=== PATIENT | male | born 1960 | race Caucasian/White ===

== ENCOUNTER → 2016-04-27 | Outpatient (CLI) | payer OTHER ==
[~2016-04-27] MED LIST: CEPH500C PO
[2016-04-27 13:04] LABS: HEMATOCRIT 42.1 % (42-52); MEAN CELL VOLUME 95.9 fL (80-100); MEAN CORPUSCULAR HEMOGLOBIN 33.3 pg (25-34); MEAN CORPUSCULAR HGB CONC 34.7 g/dl (32-36); MEAN PLATELET VOLUME 11.3 fL (7.4-10.4); PLATELET COUNT 345 K/uL (130-400); RED BLOOD COUNT 4.39 M/uL (4.7-6.1); WHITE BLOOD COUNT 7.06 K/uL (4.8-10.8)
[2016-04-27 13:47] LABS: ALKALINE PHOSPHATASE 511 U/L (45-117); ALT/SGPT 163 U/L (12-78); AST/SGOT 68 U/L (15-37); BLOOD UREA NITROGEN 14 mg/dl (7-18); BUN/CREATININE RATIO 15.3 (10-20); CALCIUM 9.3 mg/dl (8.5-10.1); CARBON DIOXIDE 24 mmol/L (21-32); CHLORIDE 104 mmol/L (98-107); CREATININE 0.91 mg/dl (0.60-1.40); GLUCOSE 91 mg/dl (70-99); POTASSIUM 4.2 mmol/L (3.5-5.1); SODIUM 137 mmol/L (136-145)
== END | disposition home or self-care (01) ==
LOC: C.LABPVFM 08:33
PROVIDERS: ATTEND Family Medicine
DX: R19.7 Diarrhea, unspecified (principal); L50.9 Urticaria, unspecified

== ENCOUNTER → 2016-05-03 | Outpatient (CLI) | payer OTHER | END | disposition home or self-care (01) | LOC: C.LABPVFM 07:50 | PROVIDERS: ATTEND Family Medicine | DX: R79.89 Other specified abnormal findings of blood chemistry (principal) ==

== ENCOUNTER → 2016-05-03 | Outpatient (CLI) | payer OTHER ==
--- NOTE | 2016-05-03 13:40 | DIAGNOSTIC IMAGING REPORT ---
ULTRASOUND ABDOMEN COMPLETE CLINICAL HISTORY: Abnormal hepatic transaminases. COMPARISON STUDY: No priors. TECHNIQUE: Real-time, grayscale, and color flow sonography of the abdomen was performed. Images are reviewed in the transverse and longitudinal planes. FINDINGS: Liver: The liver is mildly enlarged measuring 19 cm in length. Liver appears normal in echotexture. There is moderate intrahepatic biliary ductal dilatation. The main portal vein is patent. Gallbladder: The gallbladder is distended measuring up to 12 cm in length. Biliary sludge is noted. No shadowing gallstones are identified. There is no gallbladder wall thickening or pericholecystic fluid. A sonographic Wilkinson's sign is reportedly absent. The common bile duct is dilated measuring up to 1.6 cm in diameter. Pancreas: Visualized portions of the pancreatic head and body are normal in appearance. The splenic vein is patent. Spleen: The spleen is normal in size and echotexture, measuring 10.1 cm in length. Kidneys: The kidneys are normal in size and echotexture. There is no hydronephrosis. The right kidney measures 12.4 cm in length and the left kidney measures 12.4 cm in length. No shadowing calculi are identified. A 2.1 cm cyst is noted in the right kidney. Abdominal vasculature: Visualized portions of the abdominal aorta and IVC are normal in appearance. Ascites: None. IMPRESSION: 1. There is intra and extrahepatic biliary ductal dilatation. 2. The gallbladder is distended and filled with sludge. No shadowing gallstones are identified and there is no sonographic evidence of acute cholecystitis. 3. These findings raise concern for biliary obstruction. Consider contrast-enhanced abdominal CT for further assessment. Electronically signed by: Isauro Correa M.D. 05/03/2016 1:39 PM Dictated Date/Time: 05/03/2016 1:35 PM
== END | disposition home or self-care (01) ==
LOC: C.ULTR 11:40
PROVIDERS: ATTEND Family Medicine
DX: R79.89 Other specified abnormal findings of blood chemistry (principal)

== ENCOUNTER → 2016-05-08 | Outpatient (CLI) | payer OTHER ==
[~2016-05-08] MED LIST changes: +OPTIRAY 320 IV PRN
--- NOTE | 2016-05-08 08:49 | DIAGNOSTIC IMAGING REPORT ---
CT OF THE ABDOMEN WITH IV AND ORAL CONTRAST CT DOSE: 204.60 mGy.cm CLINICAL HISTORY: Abnormal liver function tests. TECHNIQUE: Axial images of the abdomen were obtained following intravenous injection of 118 cc of Optiray 320 IV. Oral contrast was administered. COMPARISON STUDY: Abdominal ultrasound May 03, 2016. FINDINGS: Lung bases are clear. There is moderate intra and extrahepatic biliary ductal dilatation. The common bile duct measures 1.5 cm in caliber. There is abrupt cut off of the distal common bile duct at the level of the ampulla. There is no pancreatic ductal dilatation. No mass is identified although small masses may be occult by CT. An 8 mm hypodense lateral segment hepatic lesion likely reflects a cyst. A 6 cm hypodense right hepatic lobe lesion shown on image 233 of 281 likely reflects a cyst. There are a few additional smaller subcentimeter hepatic lesions. The spleen, adrenal glands and left kidney are normal. There is a 2.2 cm right renal cyst. Adjacent right renal lesion likely reflects a subcentimeter cyst. There is no abdominal lymphadenopathy. The caliber and wall thickness of visualized small and large bowel are normal. There is no peripancreatic infiltration. Note is made of layering material within the gallbladder which likely reflects sludge. There are also tiny hyperdensities within the inferior aspect of the gallbladder that could reflect tiny calculi. There is no pericholecystic infiltration. IMPRESSION: 1. Moderate intra and extrahepatic biliary ductal dilatation with abrupt cut off of the distal common bile duct at the level of the ampulla. No mass or radiopaque stone identified although small ampullary masses may be occult by CT. No pancreatic ductal dilatation. GI consultation is recommended. Further evaluation with MRCP or ERCP is suggested. 2. Several subcentimeter hypodense hepatic lesions. These are too small to characterize but likely reflect cysts. 3. Sludge within the gallbladder with suspected tiny gallstones. No pericholecystic infiltration. Electronically signed by: Madhu Cheng M.D. 05/08/2016 8:48 AM Dictated Date/Time: 05/08/2016 8:32 AM
[2016-05-08 09:52] LABS: ALB/GLOB RATIO 0.9 (0.9-2); ALKALINE PHOSPHATASE 367 U/L (45-117); ALT/SGPT 190 U/L (12-78); AST/SGOT 66 U/L (15-37); BLOOD UREA NITROGEN 15 mg/dl (7-18); CALCIUM 8.6 mg/dl (8.5-10.1); CARBON DIOXIDE 25 mmol/L (21-32); CHLORIDE 102 mmol/L (98-107); CREATININE 0.86 mg/dl (0.60-1.40); GLUCOSE 85 mg/dl (70-99); POTASSIUM 3.9 mmol/L (3.5-5.1); SODIUM 136 mmol/L (136-145)
== END | disposition home or self-care (01) ==
LOC: C.CTS 06:03
PROVIDERS: ATTEND Family Medicine
DX: R79.89 Other specified abnormal findings of blood chemistry (principal); K83.8 Other specified diseases of biliary tract; K76.89 Other specified diseases of liver; K82.9 Disease of gallbladder, unspecified

== ENCOUNTER 2016-05-10 10:43 | Day surgery (SDC) | payer OTHER ==
[~2016-05-10] VITALS: Ht 177.8 cm; Wt 75.5 kg
[~2016-05-10 10:43] MED LIST changes: +CIPROFLOXACIN / D5W 400 MG IV SCH; -OPTIRAY 320 IV PRN
[2016-05-10 11:17] VITALS: BP 114/71; PULSE 74; TEMP 37; O2SAT 97; Ht 177.8 cm; Wt 75.5 kg
[2016-05-10] MEDS ORDERED: LACTATED RINGER'S 1000ML 1,000 ML IV ONE (11:42)
[2016-05-10] MEDS ORDERED: INDOMETHACIN 50 MG SUPP PR ONE ×2 (11:45→12:54)
[2016-05-10 12:24] LABS: INR 0.9 (0.9-1.1); PROTHROMBIN TIME (PATIENT) 10.1 SECONDS (9.0-12.0)
[2016-05-10 12:36] LABS: BUN/CREATININE RATIO 18.2 (10-20); CALCIUM 8.8 mg/dl (8.5-10.1); CREATININE 0.66 mg/dl (0.60-1.40); POTASSIUM 3.9 mmol/L (3.5-5.1)
[2016-05-10 12:41] LABS: ALB/GLOB RATIO 0.8 (0.9-2)
--- NOTE | 2016-05-10 13:07 | Endo History and Physical ---
History & Physical Date of Service: May 10, 2016. Chief Complaint: Jaundice Referring Physician: Dr. Hipolito Peterson History of Present Illness Patient with 1 month of itching, 10 pound weight loss, nausea and recent jaundice. Imaging with a dilated common bile duct (15 mm) and labs with elevated LAEs + a bilirubin > 10. Past Surgical History Hx Cardiac Surgery: No Hx Abdominal Surgery: No Hx Post-Op Nausea and Vomiting: No Hx Cancer Surgery: Yes (melonoma with lymph node removal ) Hx Thoracic Surgery: No Hx Orthopedic: No Hx Urinary Tract Surgery: No Social History Smoking Status: Current Every Day Smoker Hx Substance Use: No Hx Alcohol Use: Yes (three beers a day) Allergies Coded Allergies: No Known Allergies (Unverified , 03/11/08) Current Medications Reported Home Medications Medications Dose Route/Sig Max Daily Dose Days Date Category Keflex (Cephalexin Monohydrate) 500 Mg Cap 500 Mg PO QID 03/11/08 Rx Vital Signs Weight (Kilograms): 75.5 Height (Feet): 5 Height (Inches): 10 Date Time Temp Pulse Resp B/P Pulse Ox O2 Delivery O2 Flow Rate FiO2 05/10/16 11:17 37.0 74 18 114/71 97 Room Air Physical Exam General Appearance: no apparent distress Respiratory/Chest: Auscultation: breath sounds normal, no wheezing Cardiovascular: Heart Auscultation: RRR, no murmurs Abdomen: Inspection & Palpation: soft Assessment and Plan patient with obstructive jaundice, history and 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 We will proceed with EUS / ERCP this afternoon. Risks are bleeding, infection, perforation, pain, pancreatitis, failed cannulation and insufficient cellularity. Plan EUS ERCP
[2016-05-10] MEDS ORDERED: MoRPHine SULFATE PF 1 MG/ML 10 ML AMP/VIAL ONE (14:16)
[2016-05-10] MEDS ORDERED: MIDAZOLAM HCL 1 MG/ML 2ML VIAL ONE (14:16)
[2016-05-10] MEDS ORDERED: FENTANYL CITRATE INJ 50 MCG/1 ML 2 ML VIAL ONE (14:17)
[2016-05-10] MEDS ORDERED: ROCURONIUM BROMIDE 10 MG/ML 5 ML VIAL ONE (14:40)
[2016-05-10] MEDS ORDERED: ONDANSETRON INJ 2 MG/ML 2 ML VIAL ONE (14:40)
[2016-05-10] MEDS ORDERED: DEXAMETHASONE SOD INJ 4 MG/ML VIAL ONE (14:40)
[2016-05-10] MEDS ORDERED: PROPOFOL IV EMULSION 10 MG/ML 20 ML VIAL IV ONE (14:45)
[2016-05-10] MEDS ORDERED: LIDOCAINE HCL 2% 2 ML VIAL (20MG/ML) ONE (14:45)
[2016-05-10] MEDS ORDERED: EpHEDrine SULFATE INJ 50 MG/ML AMP ONE (14:54)
[2016-05-10] MEDS ORDERED: PHENYLEPHRINE 100MCG/ML 5ML SYR ONE (14:54)
[2016-05-10] MEDS ORDERED: HYDROmorphone INJ 2 MG/ML SYR/VIAL IV PRN (15:00)
[2016-05-10] MEDS ORDERED: FENTANYL CITRATE INJ 50 MCG/1 ML 2 ML VIAL IV PRN (15:00)
[2016-05-10] MEDS ORDERED: LABETALOL HCL IV 5 MG/ML 20ML IV PRN (15:00)
[2016-05-10] MEDS ORDERED: PHENYLEPHRINE 100MCG/ML 5ML SYR IV PRN (15:00)
[2016-05-10] MEDS ORDERED: ATROPINE SULFATE 0.1 MG/ML 5ML SYR IV PRN (15:00)
[2016-05-10] MEDS ORDERED: ONDANSETRON INJ 2 MG/ML 2 ML VIAL IV PRN ×2 (15:00→15:45)
[2016-05-10] MEDS ORDERED: FLUMAZENIL 0.1 MG/1 ML 10 ML VIAL IV PRN (15:00)
[2016-05-10] MEDS ORDERED: MEPERIDINE HCL 25 MG/ML CARP IV PRN (15:00)
[2016-05-10] MEDS ORDERED: EpHEDrine SULFATE INJ 50 MG/ML AMP IV PRN (15:00)
[2016-05-10] MEDS ORDERED: NALOXONE HCL 0.4 MG/1 ML VIAL/CARP IV PRN (15:00)
[2016-05-10] MEDS ORDERED: NEOSTIGMINE METHYLSULFATE 5 MG/5 ML SYR ONE (15:10)
[2016-05-10] MEDS ORDERED: GLYCOPYRROLATE INJ 0.2 MG/ML VIAL ONE (15:10)
--- NOTE | 2016-05-10 15:41 | [facility] Post Operative Brief Note ---
Immediate Operative Summary Operative Date May 10, 2016. Pre-Operative Diagnosis Jaundice Post-Operative Diagnosis Ampullary Mass Procedure(s) Performed Upper Endoscopic Ultrasonography, Endoscopic Retrograde Cholangiopancreatogram Surgeon Dr. Elias Patient Case Coordinator Surgeon(s) NONE Estimated Blood Loss 0ml Findings DILATION OF THE COMMON BILE DUCT PERIAMPULLARY MASS Specimens All specimens handled by Endoscopy Anesthesia General Complication(s) None Disposition Recovery Room / PACU
--- NOTE | 2016-05-10 15:44 | Discharge Instructions ---
Endoscopy Patient Instructions Date / Procedure(s) Performed May 10, 2016. ERCP, Other (endoscopic ultrasound) Allergy Information Coded Allergies: No Known Allergies (Unverified , 03/11/08) Discharge Date / Findings May 10, 2016. 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 - Do not drink alcohol the day of the procedure. - Do not drive a car or operate machinery until the day after the procedure. - Do not make any important decisions or sign important papers in 24 hours after the procedure. Following Day: - Return to full activity which may include returning to work/school. Diet Clear liquid diet today Regular diet on 05/11/16 Treatment For Common After Affects For mild abdominal pain, bloating, or excessive gas: - Rest - Eat lightly - Lie on right side Follow-Up Information Await pathology results Labs in [address] ordered for next week Surgical oncology referral Anesthesia Information What You Should Know You have had a procedure that required some medicine to reduce anxiety and discomfort. This treatment is called moderate sedation. After receiving the treatment, you may be sleepy, but you will be able to breathe on your own. The effects of the treatment may last for several hours. Follow these instructions along with Activity/Diet recommendations noted above: * Do NOT do anything where dizziness or clumsiness would be dangerous. * Rest quietly at home today, then you can be up and about tomorrow. * Have a responsible person stay with you the rest of today. * You may have had an I.V. today. If so, you may take the dressing off later today. Recommendations Call your doctor if: * Trouble breathing * Continuous vomiting for more than 24 hours * Temperature above 101 degrees * Severe abdominal pain or bloating * Pain not relieved by pain medicine ordered * There is increased drainage or redness from any incision * A large amount of rectal bleeding greater than 2-3 tablespoons. (If you had a polyp/s removed or have hemorrhoids, a small amount of blood - from the rectum is to be expected.) * You have any unanswered questions or concerns. IN THE EVENT OF A SERIOUS EMERGENCY, GO TO THE NEAREST EMERGENCY ROOM Your discharge instructions were prepared by provider Tonie Elias. Patient Instructions Signature Page Selvin Pineda Patient (or Guardian) Signature/Date: I have read and understand the instructions given to me by my caregivers. Caregiver/RN/Doctor Signature/Date: The above-named patient and/or guardian has received patient instructions on this date. + Original Patient Signature Page (only) stays with chart. Please make copy for patient.
--- NOTE | 2016-05-10 15:52 | DIAGNOSTIC IMAGING REPORT ---
ERCP BILIARY DUCTAL CLINICAL HISTORY: Biliary ductal dilatation. Possible ampullary mass. COMPARISON STUDY: CT scan dated 05/08/2016 FLUOROSCOPY TIME: 44 seconds. 8 Fluoroscopic spot images are provided for interpretation. FINDINGS: The common bile duct was cannulated and contrast was instilled. There is intra and extra hepatic biliary ductal dilatation. No filling defects are visualized. A biliary enteric stent was placed. IMPRESSION: Fluoroscopic spot images during an ERCP and placement of a biliary enteric stent. Electronically signed by: Armando Perkins M.D. 05/10/2016 3:51 PM Dictated Date/Time: 05/10/2016 3:50 PM
--- NOTE | 2016-05-10 15:53 | GI REPORT ---
Procedure Date: 05/10/2016 2:16 PM Procedure: ERCP Indications: Biliary dilation on Computed Tomogram Scan, Jaundice Medicines: General Anesthesia, Indocin 100 mg SD Complications: No immediate complications. Estimated blood loss: Minimal. Estimated Blood Loss: Estimated blood loss was minimal. Procedure: Pre-Anesthesia Assessment: - Prior to the procedure, a History and Physical was performed, and patient medications, allergies and sensitivities were reviewed. The patient's tolerance of previous anesthesia was reviewed. - The risks and benefits of the procedure and the sedation options and risks were discussed with the patient. All questions were answered and informed consent was obtained. - Patient identification and proposed procedure were verified prior to the procedure by the physician, the nurse and the president college or university. The procedure was verified in the procedure room. - Pre-procedure physical examination revealed no contraindications to sedation. - ASA Grade Assessment: III - A patient with severe systemic disease. - After reviewing the risks and benefits, the patient was deemed in satisfactory condition to undergo the procedure. - The anesthesia plan was to use general anesthesia. - Immediately prior to administration of medications, the patient was re-assessed for adequacy to receive sedatives. - The heart rate, respiratory rate, oxygen saturations, blood pressure, adequacy of pulmonary ventilation, and response to care were monitored throughout the procedure. - The physical status of the patient was re-assessed after the procedure. After obtaining informed consent, the scope was passed under direct vision. Throughout the procedure, the patient's blood pressure, pulse, and oxygen saturations were monitored continuously. The Scope was introduced through the mouth, and advanced to the duodenum and used to cannulate the bile duct. The ERCP was accomplished without difficulty. The patient tolerated the procedure well. Findings: The regional extension service specialist film was normal. The esophagus was successfully intubated under direct vision without detailed examination of the pharynx, larynx, and associated structures, and upper GI tract. The upper GI tract was grossly normal. A medium-sized fungating mass measuring twenty-one mm in diameter was found at the major papilla. The bile duct was deeply cannulated with the short-nosed traction sphincterotome (Omni 35) and 0.035 in Acrobat guidewire during the first cannulation attempt. Contrast was injected. I personally interpreted the bile duct images. Contrast extended to the hepatic ducts. The main bile duct was diffusely dilated, with a mass causing an obstruction. The largest diameter was 11mm. The lower third of the main bile duct contained a single segmental stenosis 10 mm in length within the intraduodenal segment consistent with an ampullary mass. A short biliary sphincterotomy was made with a monofilament short-tip traction sphincterotome using ERBE electrocautery. There was no post-sphincterotomy bleeding. One 7 Fr by 7 cm biliary stent with a full external pigtail and a full internal pigtail was placed 7 cm into the common bile duct. Bile flowed through the stent. The stent was in good position. One 8.5 Fr by 7 cm biliary stent with a single external flap and a single internal flap was placed 7 cm into the common bile duct. Bile flowed through the stent. The stent was in good position. The endoscope was withdrawn from the patient. Impression: - The major papilla appeared to have a mass. - The entire main bile duct was dilated, with a mass causing an obstruction. - A sphincterotomy was performed. - 2 biliary stents were placed. Recommendation: - Avoid aspirin and nonsteroidal anti-inflammatory medicines for 1 week. - Clear liquid diet today. - Cipro (ciprofloxacin) 500 mg PO BID for 5 days. Tonie Elias D.O. Tonie Elias, 05/10/2016 3:52:49 PM This report has been signed electronically. Note Initiated On: 05/10/2016 2:16 PM I attest to the content of the Intraoperative Record and orders documented therein, exceptions below
--- NOTE | 2016-05-10 15:59 | Anesthesiology Progress Note ---
Anesthesia Post Op Note Date & Time May 10, 2016 at 15:59 Vital Signs Pain Intensity: 0 Vital Signs Past 12 Hours Date Time Temp Pulse Resp B/P Pulse Ox O2 Delivery O2 Flow Rate FiO2 05/10/16 15:50 55 16 100 05/10/16 15:50 56 16 05/10/16 15:48 101/60 05/10/16 15:45 56 15 100 05/10/16 15:45 36.5 60 16 98/63 100 Mask 10 05/10/16 15:45 57 15 05/10/16 11:17 37.0 74 18 114/71 97 Room Air Notes Mental Status: alert / awake / arousable, participated in evaluation Pt Amnestic to Procedure: Yes Nausea / Vomiting: adequately controlled Pain: adequately controlled Airway Patency, RR, SpO2: stable & adequate BP & HR: stable & adequate Hydration State: stable & adequate Anesthetic Complications: no major complications apparent
[2016-05-10 16:30] VITALS: BP 114/68; PULSE 63; TEMP 36.3; O2SAT 97
[2016-05-10 17:07] VITALS: BP 117/72; PULSE 70; TEMP 36.4; O2SAT 99
[2016-05-11] MEDS ORDERED: CIPROFLOXACIN 400MG / 200ML D5W IV ONE (06:00)
== END 2016-05-10 17:24 | disposition home or self-care (01) ==
LOC: C.ACU 10:43
PROVIDERS: ATTEND Internal Medicine Gastroenterology
DX: C17.0 Malignant neoplasm of duodenum (principal); R17 Unspecified jaundice; R63.4 Abnormal weight loss; F17.210 Nicotine dependence, cigarettes, uncomplicated; R11.0 Nausea

== ENCOUNTER → 2016-06-10 | Outpatient (CLI) | payer OTHER ==
[~2016-06-10] MED LIST changes: -CIPROFLOXACIN / D5W 400 MG IV SCH
[2016-06-10 12:32] LABS: HEMATOCRIT 32.9 % (42-52); MEAN CELL VOLUME 92.4 fL (80-100); MEAN CORPUSCULAR HEMOGLOBIN 31.2 pg (25-34); MEAN CORPUSCULAR HGB CONC 33.7 g/dl (32-36); MEAN PLATELET VOLUME 9.3 fL (7.4-10.4); PLATELET COUNT 575 K/uL (130-400); RED BLOOD COUNT 3.56 M/uL (4.7-6.1); WHITE BLOOD COUNT 10.57 K/uL (4.8-10.8)
[2016-06-10 12:51] LABS: BLOOD UREA NITROGEN 7 mg/dl (7-18); BUN/CREATININE RATIO 9.2 (10-20); CALCIUM 8.4 mg/dl (8.5-10.1); CARBON DIOXIDE 27 mmol/L (21-32); CHLORIDE 103 mmol/L (98-107); CREATININE 0.78 mg/dl (0.60-1.40); GLUCOSE 127 mg/dl (70-99); POTASSIUM 3.7 mmol/L (3.5-5.1); SODIUM 139 mmol/L (136-145)
== END | disposition home or self-care (01) ==
LOC: C.LABPVFM 10:21
PROVIDERS: ATTEND Nurse Practitioner
DX: I82.90 Acute embolism and thrombosis of unspecified vein (principal)

== ENCOUNTER → 2016-06-12 | Outpatient (CLI) | payer OTHER | END | disposition home or self-care (01) | LOC: C.LABPVFM 12:24 | PROVIDERS: ATTEND Family Medicine | DX: R19.7 Diarrhea, unspecified (principal) ==

== ENCOUNTER 2019-04-06 17:00 | Inpatient (IN) ==
[2019-04-06] MEDS ORDERED: ONDANSETRON INJ 2 MG/ML 2 ML VIAL IV STA (17:05)
[2019-04-06] MEDS ORDERED: SODIUM CHLORIDE 0.9% 1000ML 1,000 ML IV SCH (17:15)
[2019-04-06] MEDS: HYDROmorphone INJ 0.5 MG/0.5 ML SYR IV PRN ×7 (17:24→21:21)
[2019-04-06] MEDS ORDERED: OPTIRAY 320 125ml IV PRN (17:25)
[2019-04-06 17:29] LABS: iSTAT Creatinine 0.9 mg/dl (0.6-1.3); iSTAT Hemoglobin 14.6 g/dl (14.0-18.0); iSTAT Ionized Calcium 1.18 mmol/l (1.12-1.32)
[2019-04-06 17:31] LABS: Hematocrit (blood only) 42.4 % (42-52); Hemoglobin 14.2 g/dL (14.0-18.0); Mean Corpuscular Hemoglobin 33.4 pg (25-34); Mean Corpuscular Hgb Conc 33.5 g/dL (32-36); Mean Corpuscular Volume 99.8 fL (80-100); Mean Platelet Volume 10.5 fL (7.4-10.4); Platelet Count 336 K/uL (130-400); RDW Coefficient of Variation 13.4 % (11.5-14.5); RDW Standard Deviation 48.7 fL (36.4-46.3); Red Blood Count 4.25 M/uL (4.7-6.1); White Blood Count 8.67 K/uL (4.8-10.8)
--- NOTE | 2019-04-06 17:42 | CT Scan Report ---
CT angio chest dissec wo/w con CT DOSE: 876.22 mGy.cm HISTORY: Pain pain TECHNIQUE: Multiaxial CT images of the chest, abdomen, and pelvis were performed both before and afte r the intravenous administration of contrast to evaluate the aorta. Maximal intensity projection imag es were also obtained. A dose lowering technique was utilized adhering to the principles of ALARA. COMPARISON STUDY: 09/12/2017 FINDINGS: Normal thoracic aorta. Lungs are considered clear. No evidence for aneurysm or dissection. Mild emphysematous change. IMPRESSION: Mild emphysematous change. Normal thoracic aorta. The lungs are clear. ACT 112: Negative or not required by law. The above report was generated using voice recognition software. It may contain grammatical, syntax or spelling errors. Electronically signed by: Hipolito Chen M.D. 04/06/2019 5:41 PM
[2019-04-06 17:47] LABS: Partial Thromboplastin Ratio 1.1; Partial Thromboplastin Time 28.5 Seconds (21.0-31.0); Prothrombin Time 10.4 Seconds (9.0-12.0)
[2019-04-06 17:48] LABS: Alanine Aminotransferase 28 U/L (12-78); Albumin Level 3.8 gm/dl (3.4-5.0); Aspartate Aminotransferase 16 U/L (15-37); BUN Creatinine Ratio 12.1 (10-20); Blood Urea Nitrogen 13 mg/dl (7-18); Calcium 8.8 mg/dl (8.5-10.1); Carbon Dioxide 26 mmol/L (21-32); Chloride 105 mmol/L (98-107); Creatinine Clr Calc Pharmacy 78.4 ml/min; Est GFR (African American) 89.2; Glucose 128 mg/dl (70-99); Lipase 91 U/L (73-393); Potassium 3.8 mmol/L (3.5-5.1); Sodium 137 mmol/L (136-145)
[2019-04-06 17:53] LABS: Albumin Globulin Ratio 1.2 (0.9-2); Alkaline Phosphatase 90 U/L (45-117); Bilirubin,Total 0.4 mg/dl (0.2-1); Globulin 3.2 gm/dl (2.5-4.0); Troponin I < 0.015 ng/ml (0-0.045)
--- NOTE | 2019-04-06 17:53 | CT Scan Report ---
CT abd pelvis IV con only CT DOSE: HISTORY: Trauma. Pain. lower pain TECHNIQUE: Multiaxial CT images of the abdomen and pelvis were performed following the use of intrave nous contrast. A dose lowering technique was utilized adhering to the principles of ALARA. COMPARISON STUDY: 09/09/2017 FINDINGS: Lung bases are clear. The subcapsular collection previously described has resolved. Liver i s uniform throughout. Trace amount of ascites within the paracolic gutter regions. Kidneys negative for hydronephrosis. Stable right renal cyst. Bowel pattern suggests wall thickening of the bulk of the small bowel. This is highly suggestive of diffuse enteritis. 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 IMPRESSION: 1. Mild abdominal and pelvic ascites. 2. 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 3. Interval resolution of the subcapsular collection previously described. 4. Diffuse small bowel enteritis. ACT 112: Negative or not required by law. The above report was generated using voice recognition software. It may contain grammatical, syntax or spelling errors. Electronically signed by: Hipolito Chen M.D. 04/06/2019 5:51 PM
[2019-04-06] MEDS ORDERED: SODIUM CHLORIDE 0.9% 1000ML 1,000 ML IV ONE (18:36)
[2019-04-06 18:47] LABS: Basophils # (auto) 0.01 K/uL (0-0.2); Basophils % (auto) 0.1 %; Eosinophils # (auto) 0.02 K/uL (0-0.5); Eosinophils % (auto) 0.2 %; Immature Granulocytes # (auto) 0.01 K/uL (0.00-0.02); Immature Granulocytes % (auto) 0.1 %; Lymphocytes # (auto) 1.03 K/uL (1.2-3.4); Lymphocytes % (auto) 11.9 %; Monocytes # (auto) 0.58 K/uL (0.11-0.59); Monocytes % (auto) 6.7 %; Neutrophils # (auto) 7.02 K/uL (1.4-6.5)
[2019-04-06] MEDS ORDERED: KETOROLAC TROMETHAMINE 15 MG/ML VIAL IV ONE (19:15)
[2019-04-06 20:24] LABS: HCO3 VBG 23 mmol/L; PCO2 VBG 48 mmHg (38-50); PO2 VBG 28 mmHg; pH VBG 7.29 (7.36-7.41)
[2019-04-06 20:48] LABS: Oxygen Saturation VBG < 60.0 %
--- NOTE | 2019-04-06 22:14 | Emergency Department Note ---
Entered by Yuly Bach acting as a scribe for Luis Manuel Klein DO History of Present Illness General Chief complaint: Abdominal Pain Stated complaint: AB PAIN Source: patient and EMS Limitations: no limitations History of Present Illness Onset (ago): hour(s) (1.5) Location: abdomen Radiation: other (shoulders) Severity: severe Pain Consistency: + constant Associated symptoms: no chest pain and no nausea/vomiting Treatments prior to arrival: other (normal saline solution, fentanyl) The patient is a 58 year old male who presents to the Emergency Room with complaints of severe, constant abdominal pain that began at 15:30, about 1.5 hours ago. He notes that there is "ripping" pain radiating to his shoulders. The patient reports that the pain began is his lower abdomen, and it's now in his entire abdomen and shoulders. He denies any chest pain and vomiting. The patient denies any history of similar symptoms. He notes that he smoke cigarettes daily, and he reports that he has about 1 beer a week. The patient notes a history of pancreatic cancer. Per EMS, the patient was given fentanyl and 500 cc of normal saline solution. Home Medications Home Medications Medication Instructions Recorded Confirmed Type Multivitamin Powder Pkg 1 packet PO DAILY 04/06/19 04/06/19 History acetaminophen [Tylenol] 650 mg PO QID PRN 04/06/19 04/06/19 History ibuprofen [Advil] 400 mg PO Q6H PRN 04/06/19 04/06/19 History Allergies Allergy/AdvReac Type Severity Reaction Status Date / Time No Known Allergies Allergy Mild Unverified 04/06/19 21:07 Past Med/Surg History Medical History Empyema Melanoma Pancreatic cancer Pleural effusion on right Social History Preferred Language: Bahamian Communication Ability: Effective Feels Safe at Home: Yes Smoking Status: Current every day smoker Review of Systems See HPI for pertinent positives & negatives. and A total of 10 systems reviewed and were otherwise negative Physical Exam Vital Signs Vital Signs - 24 hr 04/06/19 17:16 04/06/19 18:15 04/06/19 19:49 Temperature 36.6 C Temperature Source Oral Pulse Rate 76 Pulse Rate [Right Finger] 83 87 Respiratory Rate 24 20 20 Respiratory Effort / Characteristics Non-Labored Spontaneous Non-Labored Spontaneous Non-Labored Spontaneous Respiratory Depth Normal Normal Normal Respiratory Pattern Regular Regular Regular Blood Pressure 113/82 Blood Pressure [Right Arm] 94/59 L 114/86 Blood Pressure Mean 92 Blood Pressure Mean [Right Arm] 70 95 Blood Pressure Position Lying Blood Pressure Position [Right Arm] Sitting Lying Pulse Oximetry 97 96 96 Oxygen Delivery Method Room Air Room Air Room Air Sepsis Recent Fever Within 48 Hours No Sepsis New/Unexplained Change in Mental Status No Sepsis Action Taken by Nursing No Action Required 04/06/19 21:00 Temperature Temperature Source Pulse Rate Pulse Rate [Right Finger] 81 Respiratory Rate 20 Respiratory Effort / Characteristics Non-Labored Spontaneous Respiratory Depth Normal Respiratory Pattern Regular Blood Pressure Blood Pressure [Right Arm] 118/75 Blood Pressure Mean Blood Pressure Mean [Right Arm] 89 Blood Pressure Position Blood Pressure Position [Right Arm] Lying Pulse Oximetry 100 Oxygen Delivery Method Room Air Sepsis Recent Fever Within 48 Hours Sepsis New/Unexplained Change in Mental Status Sepsis Action Taken by Nursing GENERAL: Patient is awake and alert. The patient is very uncomfortable appearing, and he appears to be in severe pain. EYES: The conjunctivae are clear. The pupils are round and reactive. EARS, NOSE, MOUTH AND THROAT: The nose is without any evidence of any deformity. Mucous membranes are moist.Tongue is midline NECK: The neck is nontender and supple. RESPIRATORY: Normal respiratory effort is noted. There is no evidence of wheezing rhonchi or rales to auscultation. CARDIOVASCULAR: Regular rate and rhythm noted. There no murmurs rubs or gallops normal S1 normal S2 GASTROINTESTINAL: Rigid with lower abdominal tenderness to palpation, diffuse guarding. BACK: No midline tenderness or or step-off noted range of motion in flexion extension as well as rotation no signs of muscle spasm noted. MUSCULOSKELETAL/EXTREMITIES: There is no evidence of gross deformity. Full range of motion is noted in the hips and shoulders. SKIN: There is no obvious evidence of any rash. There are no petechiae, pallor or cyanosis noted. NEUROLOGIC: Patient is awake alert and oriented x3. Course Course 1700: The patient was evaluated in room A03. A complete history and physical exam was performed. 1916: I reassessed the patient, and he complained of continued pain. 2041: I reevaluated the patient. 2114: I reassessed the patient, and he was resting. 2219: I spoke with Dr. Lemos, [facility] hospitalist, about the patient's case. He will further evaluate the patient. Administered Medications Hydromorphone HCl (Dilaudid) 0.5 mg IV Q15M PRN PRN Reason: Pain Stop: 04/20/19 17:04 Last Admin: 04/06/19 21:21 Dose: 0.5 mg Documented by: [id number] Admin: 04/06/19 20:34 Dose: 0.5 mg Documented by: [id number] Admin: 04/06/19 20:08 Dose: 0.5 mg Documented by: [id number] Admin: 04/06/19 19:33 Dose: 0.5 mg Documented by: [id number] Admin: 04/06/19 18:29 Dose: 0.5 mg Documented by: [id number] Admin: 04/06/19 17:38 Dose: 0.5 mg Documented by: [id number] Admin: 04/06/19 17:24 Dose: 0.5 mg Documented by: [id number] Ioversol (Optiray 320 125ml) 119 ml IV ONCE PRN PRN Reason: Interaction Checking Stop: 04/10/19 17:24 Last Admin: 04/06/19 17:26 Dose: 119 ml Documented by: [id number] Morphine Sulfate (Morphine Sulfate) 4 mg IV Q15M DOROTHY Stop: 04/20/19 20:44 Last Admin: 04/06/19 22:20 Dose: 4 mg Documented by: [id number] Discontinued Medications Diphenhydramine HCl (Benadryl) 50 mg IV NOW STA Stop: 04/06/19 22:23 Last Admin: 04/06/19 22:36 Dose: Not Given Documented by: [id number] Diphenhydramine HCl (Benadryl) Confirm Administered Dose 50 mg .ROUTE .STK-MED ONE Stop: 04/06/19 22:26 Last Admin: 04/06/19 22:26 Dose: 50 mg Documented by: [id number] Sodium Chloride (Nss 1000ml) 1,000 mls @ 999 mls/hr IV .Q1H1M DOROTHY Stop: 04/06/19 18:15 Last Infusion: 04/06/19 18:26 Dose: 0 mls/hr Documented by: [id number] Admin: 04/06/19 17:24 Dose: 999 mls/hr Documented by: [id number] Sodium Chloride (Nss 1000ml) 1,000 mls @ 999 mls/hr IV .Q1H1M ONE Stop: 04/06/19 19:36 Last Infusion: 04/06/19 19:41 Dose: 0 mls/hr Documented by: [id number] Admin: 04/06/19 18:47 Dose: 999 mls/hr Documented by: [id number] Ketorolac Tromethamine (Toradol) 10 mg IV NOW ONE Stop: 04/06/19 19:16 Last Admin: 04/06/19 19:33 Dose: 10 mg Documented by: [id number] Ondansetron HCl (Zofran) 4 mg IV NOW STA Stop: 04/06/19 17:06 Last Admin: 04/06/19 17:24 Dose: 4 mg Documented by: [id number] Medical Decision Making Differential Diagnosis Etiologies such as biliary colic, cholecystitis, hepatitis, pancreatitis, cardiac disease, pancreatitis, gastritis, peptic ulcer disease, appendicitis, cystitis, diverticulitis, mesenteric ischemia, inflammatory bowel disease, ileus, bowel obstruction, testicular torsion, aortic pathology, shingles, as well as others were considered. Medical Records Attestation: I reviewed the patient's medical records. Home Medications Current Medication List: was personally reviewed by me Laboratory Data Attestation: I reviewed the patient's lab results. Result diagrams: 04/06/19 17:12 04/06/19 17:12 Lab Results 04/06/19 04/06/19 04/06/19 Range/Units 17:12 17:12 17:12 WBC 8.67 (4.8-10.8) K/uL RBC 4.25 L (4.7-6.1) M/uL Hgb 14.2 (14.0-18.0) g/dL POC Hgb (14.0-18.0) g/dl Hct 42.4 (42-52) % POC Hct (42-52) % MCV 99.8 (80-100) fL MCH 33.4 (25-34) pg MCHC 33.5 (32-36) g/dL RDW Std Deviation 48.7 H (36.4-46.3) fL RDW Coeff of Cassidy 13.4 (11.5-14.5) % Plt Count 336 (130-400) K/uL MPV 10.5 H (7.4-10.4) fL Immature Gran % (Auto) 0.1 % Neut % (Auto) 81.0 % Lymph % (Auto) 11.9 % Brown % (Auto) 6.7 % Eos % (Auto) 0.2 % Baso % (Auto) 0.1 % Immature Gran # (Auto) 0.01 (0.00-0.02) K/uL Neut # (Auto) 7.02 H (1.4-6.5) K/uL Lymph # (Auto) 1.03 L (1.2-3.4) K/uL Brown # (Auto) 0.58 (0.11-0.59) K/uL Eos # (Auto) 0.02 (0-0.5) K/uL Baso # (Auto) 0.01 (0-0.2) K/uL PT 10.4 (9.0-12.0) Seconds INR 1.0 (0.9-1.1) APTT 28.5 (21.0-31.0) Seconds PTT Ratio 1.1 VBG pH (7.36-7.41) VBG pCO2 (38-50) mmHg VBG pO2 mmHg VBG HCO3 mmol/L VBG O2 Saturation % VBG Base Excess mEq/L Barometric Pressure mm/Hg POC Sodium (135-144) mEq/L Sodium 137 (136-145) mmol/L POC Potassium (3.3-5.0) mEq/L Potassium 3.8 (3.5-5.1) mmol/L POC Chloride (101-112) mEq/L Chloride 105 (98-107) mmol/L Carbon Dioxide 26 (21-32) mmol/L POC Total CO2 (24-31) mEq/l Anion Gap 6.0 (3-11) POC Anion Gap (16-25) mmol/L POC BUN (7-18) mg/dl BUN 13 (7-18) mg/dl Creatinine 1.06 (0.6-1.4) mg/dl POC Creatinine (0.6-1.3) mg/dl Est Cr Clr Drug Dosing 78.4 ml/min Est GFR ( Amer) 89.2 Est GFR (Non-Af Amer) 77.0 BUN/Creatinine Ratio 12.1 (10-20) Glucose 128 H (70-99) mg/dl POC Glucose (other) (70-99) mg/dl POC Lactic Acid Antwan (0.90-1.70) mmol/L Calcium 8.8 (8.5-10.1) mg/dl POC Ioniz Calcium Dhruv (1.12-1.32) mmol/l Total Bilirubin 0.4 (0.2-1) mg/dl AST 16 (15-37) U/L ALT 28 (12-78) U/L Alkaline Phosphatase 90 (45-117) U/L Troponin I < 0.015 (0-0.045) ng/ml Total Protein 7.0 (6.4-8.2) gm/dl Albumin 3.8 (3.4-5.0) gm/dl Globulin 3.2 (2.5-4.0) gm/dl Albumin/Globulin Ratio 1.2 (0.9-2) Lipase 91 (73-393) U/L 04/06/19 04/06/19 04/06/19 Range/Units 17:17 20:03 20:19 WBC (4.8-10.8) K/uL RBC (4.7-6.1) M/uL Hgb (14.0-18.0) g/dL POC Hgb 14.6 (14.0-18.0) g/dl Hct (42-52) % POC Hct 43 (42-52) % MCV (80-100) fL MCH (25-34) pg MCHC (32-36) g/dL RDW Std Deviation (36.4-46.3) fL RDW Coeff of Cassidy (11.5-14.5) % Plt Count (130-400) K/uL MPV (7.4-10.4) fL Immature Gran % (Auto) % Neut % (Auto) % Lymph % (Auto) % Brown % (Auto) % Eos % (Auto) % Baso % (Auto) % Immature Gran # (Auto) (0.00-0.02) K/uL Neut # (Auto) (1.4-6.5) K/uL Lymph # (Auto) (1.2-3.4) K/uL Brown # (Auto) (0.11-0.59) K/uL Eos # (Auto) (0-0.5) K/uL Baso # (Auto) (0-0.2) K/uL PT (9.0-12.0) Seconds INR (0.9-1.1) APTT (21.0-31.0) Seconds PTT Ratio VBG pH 7.29 L (7.36-7.41) VBG pCO2 48 (38-50) mmHg VBG pO2 28 mmHg VBG HCO3 23 mmol/L VBG O2 Saturation < 60.0 % VBG Base Excess -4.0 mEq/L Barometric Pressure 730.1 mm/Hg POC Sodium 138 (135-144) mEq/L Sodium (136-145) mmol/L POC Potassium 4.0 (3.3-5.0) mEq/L Potassium (3.5-5.1) mmol/L POC Chloride 102 (101-112) mEq/L Chloride (98-107) mmol/L Carbon Dioxide (21-32) mmol/L POC Total CO2 23 L (24-31) mEq/l Anion Gap (3-11) POC Anion Gap 17.0 (16-25) mmol/L POC BUN 13 (7-18) mg/dl BUN (7-18) mg/dl Creatinine (0.6-1.4) mg/dl POC Creatinine 0.9 (0.6-1.3) mg/dl Est Cr Clr Drug Dosing ml/min Est GFR ( Amer) Est GFR (Non-Af Amer) BUN/Creatinine Ratio (10-20) Glucose (70-99) mg/dl POC Glucose (other) 127 H (70-99) mg/dl POC Lactic Acid Antwan 1.26 (0.90-1.70) mmol/L Calcium (8.5-10.1) mg/dl POC Ioniz Calcium Dhruv 1.18 (1.12-1.32) mmol/l Total Bilirubin (0.2-1) mg/dl AST (15-37) U/L ALT (12-78) U/L Alkaline Phosphatase (45-117) U/L Troponin I (0-0.045) ng/ml Total Protein (6.4-8.2) gm/dl Albumin (3.4-5.0) gm/dl Globulin (2.5-4.0) gm/dl Albumin/Globulin Ratio (0.9-2) Lipase (73-393) U/L Imaging Data Radiologist's Impression: Radiology results as stated below per my review and the radiologist's interpretation: CT abd pelvis IV con only CT DOSE: HISTORY: Trauma. Pain. lower pain TECHNIQUE: Multiaxial CT images of the abdomen and pelvis were performed following the use of intravenous contrast. A dose lowering technique was utilized adhering to the principles of ALARA. COMPARISON STUDY: 09/09/2017 FINDINGS: Lung bases are clear. The subcapsular collection previously described has resolved. Liver is uniform throughout. Trace amount of ascites within the paracolic gutter regions. Kidneys negative for hydronephrosis. Stable right renal cyst. Bowel pattern suggests wall thickening of the bulk of the small bowel. This is highly suggestive of diffuse enteritis. 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 IMPRESSION: 1. Mild abdominal and pelvic ascites. 2. 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 3. Interval resolution of the subcapsular collection previously described. 4. Diffuse small bowel enteritis. ACT 112: Negative or not required by law. The above report was generated using voice recognition software. It may contain grammatical, syntax or spelling errors. Electronically signed by: Hipolito Chen M.D. 04/06/2019 5:[address] angio chest dissec wo/w con CT DOSE: 876.22 mGy.cm HISTORY: Pain pain TECHNIQUE: Multiaxial CT images of the chest, abdomen, and pelvis were performed both before and after the intravenous administration of contrast to evaluate the aorta. Maximal intensity projection images were also obtained. A dose lowering technique was utilized adhering to the principles of ALARA. COMPARISON STUDY: 09/12/2017 FINDINGS: Normal thoracic aorta. Lungs are considered clear. No evidence for aneurysm or dissection. Mild emphysematous change. IMPRESSION: Mild emphysematous change. Normal thoracic aorta. The lungs are clear. ACT 112: Negative or not required by law. The above report was generated using voice recognition software. It may contain grammatical, syntax or spelling errors. Electronically signed by: Hipolito Chen M.D. 04/06/2019 5:41 PM Blood Pressure Blood Pressure Findings: Elevated blood pressure Blood Pressure Disposition: further management by hospitalist JULIO C Landry The patient is a 58-year-old male who presented to the emergency department for an evaluation of abdominal pain. The patient had very severe epigastric pain. I did receive a prehospital notification about this patient and the patient was given IV fentanyl prior to arrival. He presents to the emergency department with continued abdominal pain. He was treated with IV fentanyl IV Dilaudid and IV morphine while he was in the emergency department. After many doses of pain medication he was finally comfortable. I discussed the patient's laboratory and radiographic studies with him and his family members. The patient did not have very significant relief of his pain. For this reason I discussed his case with the on-call [facility] hospitalist group. They have agreed to evaluate the patient in the emergency department for further management and disposition. Impression & Plan Abdominal pain, Enteritis Discharge Plan Visit Data Chief Complaint: Abdominal Pain Stated Complaint: AB PAIN ED Provider: Luis Manuel Klein Discharge Problem: Abdominal pain, Enteritis Patient Disposition: Being Evaluated by Hospitalist Forms Stand Alone Forms: Call Back Authorization, My [facility] Prescriptions Prescriptions: No Action acetaminophen [Tylenol] 325 mg Tablet 650 mg PO QID PRN (Reason: Pain) RF: 0 ibuprofen [Advil] 200 mg Tablet 400 mg PO Q6H PRN (Reason: Pain) RF: 0 Multivitamin Powder Pkg 1 packet PO DAILY RF: 0 Referrals Referrals: Tyesha Jones MD [Primary Care Provider] - Discharge Problem: Abdominal pain Qualifiers: Abdominal location: unspecified location Qualified Code(s): R10.9 - Unspecified abdominal pain The scribe's documentation has been prepared under my direction and personally reviewed by me in its entirety. I confirm that the note above accurately reflect s all work, treatment, procedures, and medical decision making performed by me.
[2019-04-06] MEDS: MoRPHine SULFATE 4 MG/ML 1 ML CARP\\VIAL IV SCH (22:20)
[2019-04-06] MEDS ORDERED: DiphenhydrAMINE HCL 50 MG/ML VIAL IV STA (22:22)
[2019-04-06] MEDS ORDERED: DiphenhydrAMINE HCL 50 MG/ML VIAL ONE (22:25)
--- NOTE | 2019-04-07 00:50 | History & Physical Report ---
Date of Service April 07, 2019 Assessment & Plan (1) Abdominal pain: Episodic severe abdominal pain/mild to moderate ascites/small bowel enteritis/history of pancreatic cancer(noted in ED notes of today, unverified)- CT did not show significant lymphadenopathy or suggestion of metastatic disease. NPO Zofran 4 mg IV every 6 hours as needed. Morphine sulfate 4 mg IV every 3 hours PRN sever Famotidine 20 mg IV every 12 hours. Combination of morphine and Benadryl IV, worked better than Dilaudid IV to control his symptoms. NSS + KCl 20 mEq at [address] suggestive small bowel enteritis however, patient has no symptoms of enteritis. It is possible her symptoms may be explained by peptic ulcer disease, as he has a history of taking ibuprofen. Consult gastroenterology and general surgery. Present on Admission?: Yes (2) Enteritis: See above Present on Admission?: Yes (3) Ascites: See above Present on Admission?: Yes History of Present Illness Chief Complaint: The patient presents to the emergency department with the acute onset of severe abdominal pain that began around 330 this afternoon. Primary Care Provider: Tyesha Jones MD The patient is a 58-year-old male with a past medical history including pancreatic cancer, daily tobacco use, empyema and melanoma, who reports to the emergency department with acute onset of severe abdominal pain. During his initial evaluation by the ED, they note his entire abdomen being involved with pain radiating to shoulders. At the time of my evaluation, the patient desc ribes the pain is in the epigastric area and radiating to his groin bilaterally. His pain is severe enough that he appears to be trying to crawl out of bed as he arrives in pain. Initial work-up in the ED included a CT angiography of the chest with dissection protocol, which showed mild emphysematous change, normal thoracic aorta and clear lungs. 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 The patient has denied any change in bowel or bladder habits. Then, because the intensity of his pain, he underwent mesenteric Dopplers to assess for mesenteric ischemia, and this test was normal. The patient's pain was able to ultimately be relieved, and he will be admitted to the medical surgical floor for observation and be assessed by GI and general surgery. Allergies Allergy/AdvReac Type Severity Reaction Status Date / Time No Known Allergies Allergy Mild Unverified 04/06/19 21:07 Home Medications Home Medications Medication Instructions Recorded Confirmed Type Multivitamin Powder Pkg 1 packet PO DAILY 04/06/19 04/06/19 History acetaminophen [Tylenol] 650 mg PO QID PRN 04/06/19 04/06/19 History ibuprofen [Advil] 400 mg PO Q6H PRN 04/06/19 04/06/19 History Past Med/Surg History Medical History Empyema Melanoma Pancreatic cancer Pleural effusion on right Social History Preferred Language: Panamanian Communication Ability: Effective Contact Person Required: No Beliefs That Will Affect Care: None Current Living Situation: Spouse Other Information That Helps Us Care for You: No Feels Safe at Home: Yes Safety Concerns: Feels Safe At This Time Smoking Status: Former smoker Hx Alcohol Use: No Hx Substance Use: No Review of Systems Review of Systems: The patient denies chest pain, palpitations, shortness of breath, dyspnea on exertion, cough, lower extremity swelling, sore throat, fevers, chills, sweats, weight change, fatigue, nausea, vomiting, diarrhea , constipation, blood in urine or stool, dysuria, urinary frequency or urgency, lightheadedness, dizziness, headache, memory loss, loss of consciousness, rash, abnormal bruising or bleeding, imbalance, focal or generalized weakness, numbness or tingling in arms or legs, generalized arthralgias or myalgias, back or neck pain, or night sweats. The review of systems is otherwise negative other than for that already noted above, and at least 10 systems have been reviewed. Physical Exam Physical Exam: The patient is awake, alert and oriented 3, well developed and well nourished, normocephalic and atraumatic, lying in bed and in episodic moderately severe distress due to abdominal pain. HEENT--PERRL, EOMI, mucous membranes and oropharynx dry. Neck--supple. No JVD. No bruits. Thyroid normal, trachea midline, no adenopathy. Heart--normal S1 and S2. No murmurs, rubs or gallops. Lungs--clear bilaterally, no respiratory distress, no accessory muscle use. Abdomen--normal bowel sounds and soft. Nontender and Nondistended pre-painful episodes. Extremities--no cyanosis or clubbing. No edema. There are good distal pulses b/l. Dermatologic--normal skin turgor, normal color, no abnormal lymph nodes, no rash. Neurologic--cranial nerves II through XII grossly intact. Rheumatologic--normal range of motion. Psychiatric--normal affect. Results & Data Vital Signs (Past 12 Hours) Vital Signs Temp Pulse Pulse Resp BP BP Pulse Ox 04/07/19 00:33 88 20 118/72 98 04/06/19 23:00 84 20 118/79 98 04/06/19 21:00 81 20 118/75 100 04/06/19 19:49 87 20 114/86 96 04/06/19 18:15 83 20 94/59 L 96 04/06/19 17:16 97.9 F 76 24 113/82 97 Laboratory Results Laboratory Results WBC 8.67 K/uL (4.8-10.8) 04/06/19 17:12 RBC 4.25 M/uL (4.7-6.1) L 04/06/19 17:12 Hgb 14.2 g/dL (14.0-18.0) 04/06/19 17:12 POC Hgb 14.6 g/dl (14.0-18.0) 04/06/19 17:17 Hct 42.4 % (42-52) 04/06/19 17:12 POC Hct 43 % (42-52) 04/06/19 17:17 MCV 99.8 fL (80-100) 04/06/19 17:12 MCH 33.4 pg (25-34) 04/06/19 17:12 MCHC 33.5 g/dL (32-36) 04/06/19 17:12 RDW Std Deviation 48.7 fL (36.4-46.3) H 04/06/19 17:12 RDW Coeff of Cassidy 13.4 % (11.5-14.5) 04/06/19 17:12 Plt Count 336 K/uL (130-400) 04/06/19 17:12 MPV 10.5 fL (7.4-10.4) H 04/06/19 17:12 Immature Gran % (Auto) 0.1 % 04/06/19 17:12 Neut % (Auto) 81.0 % 04/06/19 17:12 Lymph % (Auto) 11.9 % 04/06/19 17:12 Twiggs % (Auto) 6.7 % 04/06/19 17:12 Eos % (Auto) 0.2 % 04/06/19 17:12 Baso % (Auto) 0.1 % 04/06/19 17:12 Immature Gran # (Auto) 0.01 K/uL (0.00-0.02) 04/06/19 17:12 Neut # (Auto) 7.02 K/uL (1.4-6.5) H 04/06/19 17:12 Lymph # (Auto) 1.03 K/uL (1.2-3.4) L 04/06/19 17:12 Twiggs # (Auto) 0.58 K/uL (0.11-0.59) 04/06/19 17:12 Eos # (Auto) 0.02 K/uL (0-0.5) 04/06/19 17:12 Baso # (Auto) 0.01 K/uL (0-0.2) 04/06/19 17: PT 10.4 Seconds (9.0-12.0) 04/06/19 17:12 INR 1.0 (0.9-1.1) 04/06/19 17: APTT 28.5 Seconds (21.0-31.0) 04/06/19 17: PTT Ratio 1.1 04/06/19 17: VBG pH 7.29 (7.36-7.41) L 04/06/19 20: VBG pCO2 48 mmHg (38-50) 04/06/19 20: VBG pO2 28 mmHg 04/06/19 20:03 VBG HCO3 23 mmol/L 04/06/19 20:03 VBG O2 Saturation < 60.0 % 04/06/19 20: VBG Base Excess -4.0 mEq/L 04/06/19 20: Barometric Pressure 730.1 mm/Hg 04/06/19 20:03 POC Sodium 138 mEq/L (135-144) 04/06/19 17:17 Sodium 137 mmol/L (136-145) 01/07/20 17:12 POC Potassium 4.0 mEq/L (3.3-5.0) 04/06/19 17:17 Potassium 3.8 mmol/L (3.5-5.1) 04/06/19 17:12 POC Chloride 102 mEq/L (101-112) 04/06/19 17:17 Chloride 105 mmol/L (98-107) 04/06/19 17:12 Carbon Dioxide 26 mmol/L (21-32) 04/06/19 17:12 POC Total CO2 23 mEq/l (24-31) L 04/06/19 17:17 Anion Gap 6.0 (3-11) 04/06/19 17:12 POC Anion Gap 17.0 mmol/L (16-25) 04/06/19 17:17 POC BUN 13 mg/dl (7-18) 04/06/19 17:17 BUN 13 mg/dl (7-18) 04/06/19 17:12 Creatinine 1.06 mg/dl (0.6-1.4) 04/06/19 17:12 POC Creatinine 0.9 mg/dl (0.6-1.3) 04/06/19 17:17 Est Cr Clr Drug Dosing 78.4 ml/min 04/06/19 17:12 Est GFR ( Amer) 89.2 04/06/19 17:12 Est GFR (Non-Af Amer) 77.0 04/06/19 17:12 BUN/Creatinine Ratio 12.1 (10-20) 04/06/19 17:12 Glucose 128 mg/dl (70-99) H 04/06/19 17:12 POC Glucose (other) 127 mg/dl (70-99) H 04/06/19 17:17 POC Lactic Acid Antwan 1.26 mmol/L (0.90-1.70) 04/06/19 20:19 Calcium 8.8 mg/dl (8.5-10.1) 04/06/19 17:12 POC Ioniz Calcium Dhruv 1.18 mmol/l (1.12-1.32) 04/06/19 17:17 Total Bilirubin 0.4 mg/dl (0.2-1) 04/06/19 17:12 AST 16 U/L (15-37) 04/06/19 17:12 ALT 28 U/L (12-78) 04/06/19 17:12 Alkaline Phosphatase 90 U/L (45-117) 04/06/19 17:12 Troponin I < 0.015 ng/ml (0-0.045) 04/06/19 17:12 Total Protein 7.0 gm/dl (6.4-8.2) 04/06/19 17:12 Albumin 3.8 gm/dl (3.4-5.0) 04/06/19 17:12 Globulin 3.2 gm/dl (2.5-4.0) 04/06/19 17:12 Albumin/Globulin Ratio 1.2 (0.9-2) 04/06/19 17:12 Lipase 91 U/L (73-393) 04/06/19 17:12 Diagnostic Findings [place], [place] [phone] CT Scan Report Patient: AIDAN JORDAN Date: 04/06/19 MR#: [id number]: [address] Acct ID:[id number]: [address] Date: 1960[facility] Zip: [place] [address] Age: 58Location: ED Sex: M Room/Bed: Att Phy:Diagnosis: AB PAIN Meredith Phy: Tyesha Jones MDService Date: 04/06/19 Fam Phy:Interpreting Phy: Hipolito Chen MD Admit Phy: Ordering Phy: Luis Manuel Klein DO cc: ~ CT abd pelvis IV con only CT DOSE: HISTORY: Trauma. Pain. lower pain TECHNIQUE: Multiaxial CT images of the abdomen and pelvis were performed following the use of intravenous contrast. A dose lowering technique was utilized adhering to the principles of ALARA. COMPARISON STUDY: 09/09/2017 FINDINGS: Lung bases are clear. The subcapsular collection previously described has resolved. Liver is uniform throughout. Trace amount of ascites within the paracolic gutter regions. Kidneys negative for hydronephrosis. Stable right renal cyst. Bowel pattern suggests wall thickening of the bulk of the small bowel. This is highly suggestive of diffuse enteritis. 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 IMPRESSION: 1. Mild abdominal and pelvic ascites. 2. 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 3. Interval resolution of the subcapsular collection previously described. 4. Diffuse small bowel enteritis. ACT 112: Negative or not required by law. The above report was generated using voice recognition software. It may contain grammatical, syntax or spelling errors. Electronically signed by: Hipolito Chen M.D. 04/06/2019 5:51 PM Dictated: 04/06/191746 Transcribed: 04/06/191746 [place], [place] [phone] CT Scan Report Patient: AIDAN JORDAN Date: 04/06/19 MR#: [id number]: [address] Acct ID:[id number]: [address] Date: 1960[facility] Zip: [id number] Age: 58Location: ED Sex: M Room/Bed: Att Phy:Diagnosis: AB PAIN Meredith Phy: Tyesha Jones MDService Date: 04/06/19 Fam Phy:Interpreting Phy: Hipolito Chen MD Admit Phy: Ordering Phy: Luis Manuel Klein DO cc: ~ CT angio chest dissec wo/w con CT DOSE: 876.22 mGy.cm HISTORY: Pain pain TECHNIQUE: Multiaxial CT images of the chest, abdomen, and pelvis were performed both before and after the intravenous administration of contrast to evaluate the aorta. Maximal intensity projection images were also obtained. A dose lowering technique was utilized adhering to the principles of ALARA. COMPARISON STUDY: 09/12/2017 FINDINGS: Normal thoracic aorta. Lungs are considered clear. No evidence for aneurysm or dissection. Mild emphysematous change. IMPRESSION: Mild emphysematous change. Normal thoracic aorta. The lungs are clear. ACT 112: Negative or not required by law. The above report was generated using voice recognition software. It may contain grammatical, syntax or spelling errors. Electronically signed by: Hipolito Chen M.D. 04/06/2019 5:41 PM Dictated: 04/06/191738 Transcribed: 04/06/191738 Code Status & VTE Plan Code Status Full code VTE Prophylaxis Plan VTE Prophylaxis will be ordered: Yes PG Care Time/CCT Total # of Minutes Spent Total Time Spent with Patient: Total time spent is greater than 50% in coordination of care (as documented) at patient's floor/unit and/or counseling patient: (1) Abdominal pain Abdominal location: unspecified location Qualified Code(s): R10.9 - Unspecified abdominal pain
[2019-04-07] MEDS ORDERED: ACETAMINOPHEN 325 MG TAB PO PRN (00:54)
[2019-04-07] MEDS ORDERED: ONDANSETRON INJ 2 MG/ML 2 ML VIAL IV PRN ×2 (00:54→10:10)
[2019-04-07] MEDS: MoRPHine SULFATE 4 MG/ML 1 ML CARP\\VIAL IV SCH ×4 (01:09→01:12)
[2019-04-07] MEDS: MoRPHine SULFATE 4 MG/ML 1 ML CARP\\VIAL IV PRN ×5 (01:37→21:03)
[2019-04-07] MEDS: NSS + 20MEQ KCL 20 MEQ/1,000 ML BAG IV SCH ×3 (01:37→21:07)
[2019-04-07] MEDS: DiphenhydrAMINE HCL 50 MG/ML VIAL IV PRN ×2 (01:48→07:38)
[2019-04-07] MEDS: FAMOTIDINE 20 MG in SYRINGE 3 ML IV SCH ×2 (02:25→09:07)
[2019-04-07 02:42] LABS: Appearance Urine Clear (Clear); Bilirubin Urine Negative (Negative); Blood Urine Negative (Negative); Color Urine Dark Yellow; Glucose Urine UA Negative (Negative); Ketones Urine Trace (Negative); Leukocyte Esterase Urine Negative (Negative); Nitrite Urine Negative (Negative); Protein Urine Negative (Negative); Specific Gravity Urine > 1.045 (1.000-1.030); Urobilinogen Urine Negative (Negative); pH Urine 5.5 (4.5-7.5)
[2019-04-07 06:46] LABS: Hematocrit (blood only) 45.4 % (42-52); Hemoglobin 15.3 g/dL (14.0-18.0); Mean Corpuscular Hgb Conc 33.7 g/dL (32-36); Mean Corpuscular Volume 97.8 fL (80-100); Mean Platelet Volume 10.5 fL (7.4-10.4); Platelet Count 286 K/uL (130-400); RDW Coefficient of Variation 13.8 % (11.5-14.5); RDW Standard Deviation 48.8 fL (36.4-46.3); Red Blood Count 4.64 M/uL (4.7-6.1)
--- NOTE | 2019-04-07 06:55 | Ultrasound Report ---
US duplex mesenteric CLINICAL HISTORY: 58 years-old Male presenting with severe abdominal pain. TECHNIQUE: Real-time grayscale and color and spectral Doppler ultrasound imaging of the aorta and mes enteric vessels was performed. COMPARISON: CT from 04/16/2019. FINDINGS: Aorta: Patent. Normal waveform. Peak systolic velocity 89 cm/s. Celiac axis: Patent. Normal waveforms. Peak systolic velocity 182 cm/s. Hepatic artery: Patent. Normal waveforms. Peak systolic velocity 98 cm/s. Splenic artery: Patent. Normal waveforms. Peak systolic velocity 103 cm/s. Superior mesenteric artery: Patent. Normal waveforms. Peak systolic velocity 702 cm/s proximally, 375 cm/s in the midportion, and 221 cm/s distally. Inferior mesenteric artery: Not visualized. Reference ranges: Celiac artery: PSV ? 240 cm/s suggests stenosis ? 50%; PSV ? 320 cm/s suggests stenosis ? 70%. Superior mesenteric artery: PSV ? 295 cm/s suggests stenosis ? 50%; PSV ? 400 cm/s suggests stenosis ? 70%. IMPRESSION: 1. 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 Correlate clini ann to exclude symptomatology related to bowel ischemia, which would be more likely to be chronic. Notably, this differs from the preliminary report. The report will be called/faxed according to standard departmental protocol. ACT 112: Negative or not required by law. Electronically signed by: Chente Barron M.D. 04/07/2019 6:54 AM
[2019-04-07 06:56] LABS: INR 1.1 (0.9-1.1); Partial Thromboplastin Ratio 1.2; Partial Thromboplastin Time 32.2 Seconds (21.0-31.0); Prothrombin Time 11.1 Seconds (9.0-12.0)
[2019-04-07 07:11] LABS: Basophils # (auto) 0.01 K/uL (0-0.2); Basophils % (auto) 0.1 %; Immature Granulocytes # (auto) 0.03 K/uL (0.00-0.02); Immature Granulocytes % (auto) 0.3 %; Lymphocytes # (auto) 0.49 K/uL (1.2-3.4); Lymphocytes % (auto) 4.6 %; Monocytes # (auto) 0.61 K/uL (0.11-0.59); Monocytes % (auto) 5.7 %; Neutrophils # (auto) 9.56 K/uL (1.4-6.5); Neutrophils % (auto) 89.3 %
[2019-04-07 07:24] LABS: Albumin Globulin Ratio 1.1 (0.9-2); Albumin Level 3.3 gm/dl (3.4-5.0); BUN Creatinine Ratio 16.7 (10-20); Bilirubin,Total 0.8 mg/dl (0.2-1); Creatinine Clr Calc Pharmacy 87.5 ml/min; Est GFR (African American) 101.9; Est GFR (Non-African American) 87.9; Globulin 3.1 gm/dl (2.5-4.0); Total Protein 6.4 gm/dl (6.4-8.2)
[2019-04-07] MEDS ORDERED: MoRPHine SULFATE 4 MG/ML 1 ML CARP\\VIAL IV STA (09:00)
[2019-04-07] MEDS ORDERED: MULTIVITAMIN TAB PO SCH (09:00)
[2019-04-07] MEDS ORDERED: MIDAZOLAM HCL 1 MG/ML 2ML VIAL ONE (09:36)
[2019-04-07] MEDS ORDERED: NEOSTIGMINE METHYLSULFATE 5 MG/5 ML SYR ONE (09:36)
[2019-04-07] MEDS ORDERED: ONDANSETRON INJ 2 MG/ML 2 ML VIAL ONE (09:36)
[2019-04-07] MEDS ORDERED: PROPOFOL IV EMULSION 10 MG/ML 20 ML VIAL IV ONE (09:36)
[2019-04-07] MEDS ORDERED: LIDOCAINE HCL 2% 2 ML VIAL/AMP(20MG/ML) INFIL ONE (09:36)
[2019-04-07] MEDS ORDERED: fentaNYL citrate 100 MCG/2 ML VIAL ONE ×2 (09:36→11:51)
[2019-04-07] MEDS ORDERED: GLYCOPYRROLATE 0.2 MG/ML VIAL ONE (09:36)
[2019-04-07] MEDS ORDERED: DEXAMETHASONE SOD INJ 4 MG/ML VIAL ONE (09:36)
[2019-04-07] MEDS ORDERED: ROCURONIUM BROMIDE 10 MG/ML 5 ML VIAL ONE (09:36)
--- NOTE | 2019-04-07 09:41 | Surgery Consultation ---
Date of Consultation April 07, 2019 Assessment & Plan (1) Abdominal pain: This patient has evidence of peritonitis by exam. His vital signs have been stable. There is no evidence of sepsis. I explained to him that the possibilities include perforation of the small bowel due to ischemia which fits with his symptom complex however his lactic acid has been normal. He does not have an elevated white count. The other possibility is a an ulcer at the gastro jejunal anastomosis. I recommend an exploratory laparotomy with possible small bowel resection. We discussed the possible complications and answered his questions. He has signed a consent form. History of Present Illness Reason for Consultation: Sherice Mendes DO Attending Physician: Sherice Mendes DO History of Present Illness I have been asked by Dr. Mendes to see 58-year-old male who presented to the emergency room with severe abdominal pain. The patient states that he was working on his car yesterday and had the acute onset of pain that is located throughout his abdomen with no area predominating. It is quite sharp. There is pain even without motion. He had no nausea or vomiting. Prior to the onset of the pain he had had 3 normal bowel movements yesterday which is normal for him. He had no melena or hematochezia. 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 He has no other abdominal surgery although cholecystectomy was performed during that operation. At the present time he complains of severe sharp abdominal pain. He does not want anyone to touch his abdomen. Pain medicine has been minimally helpful. Allergies Allergy/AdvReac Type Severity Reaction Status Date / Time No Known Allergies Allergy Mild Unverified 04/06/19 21:07 Home Medications Home Medications Medication Instructions Recorded Confirmed Type Multivitamin Powder Pkg 1 packet PO DAILY 04/06/19 04/06/19 History acetaminophen [Tylenol] 650 mg PO QID PRN 04/06/19 04/06/19 History ibuprofen [Advil] 400 mg PO Q6H PRN 04/06/19 04/06/19 History Patient History Medical History (Updated 04/07/19 @ 09:59 by Sherice Aquino PA-C) Cancer of ampulla of Vater Empyema Melanoma Pleural effusion on right Surgical History (Updated 04/07/19 @ 09:59 by Sherice Updyke, PA-C) H/O resection of pancreas Whipple 05/2016 History of cholecystectomy with Whipple History of thoracentesis Wrist fracture, left Social History Preferred Language: Tamaz[place] Communication Ability: Effective Editorial Director Required: No Beliefs That Will Affect Care: None marital status: Current Living Situation: Spouse Other Information That Helps Us Care for You: No Feels Safe at Home: Yes Safety Concerns: Feels Safe At This Time Smoking Status: Former smoker Hx Alcohol Use: No Hx Substance Use: No Physical Exam Constitutional: + ill appearing Neck: trachea midline Respiratory: normal respiratory effort, lungs clear to auscultation Cardiovascular: Rate/Rhythm: regular rate and regular rhythm Gastrointestinal (Abdomen): Inspection/Auscultation: + abdomen distended Percussion/Palpation: + abdomen tender (Exquisite tenderness to minimal palpation throughout) and + abdomen rigid Lymphatic: no cervical lymphadenopathy Results & Data Vital Signs (Past 12 Hours) Vital Signs Temp Pulse Pulse Resp BP BP Pulse Ox 04/07/19 07:12 36.8 C 88 19 118/75 97 04/07/19 01:04 36.5 C 100 H 16 131/85 99 04/07/19 00:50 36.5 C 100 H 16 131/85 99 04/07/19 00:33 88 20 118/72 98 04/06/19 23:45 36.5 C 100 H 16 131/85 99 04/06/19 23:00 84 20 118/79 98 Laboratory Results 04/07/19 04/07/19 04/07/19 Range/Units 09:16 06:21 06:21 WBC (4.8-10.8) K/uL RBC (4.7-6.1) M/uL Hgb (14.0-18.0) g/dL POC Hgb (14.0-18.0) g/dl Hct (42-52) % POC Hct (42-52) % MCV (80-100) fL MCH (25-34) pg MCHC (32-36) g/dL RDW Std Deviation (36.4-46.3) fL RDW Coeff of Cassidy (11.5-14.5) % Plt Count (130-400) K/uL MPV (7.4-10.4) fL Immature Gran % (Auto) % Neut % (Auto) % Lymph % (Auto) % [place] % (Auto) % Eos % (Auto) % Baso % (Auto) % Immature Gran # (Auto) (0.00-0.02) K/uL Neut # (Auto) (1.4-6.5) K/uL Lymph # (Auto) (1.2-3.4) K/uL [place] # (Auto) (0.11-0.59) K/uL Eos # (Auto) (0-0.5) K/uL Baso # (Auto) (0-0.2) K/uL PT 11.1 (9.0-12.0) Seconds INR 1.1 (0.9-1.1) APTT 32.2 H (21.0-31.0) Seconds PTT Ratio 1.2 VBG pH (7.36-7.41) VBG pCO2 (38-50) mmHg VBG pO2 mmHg VBG HCO3 mmol/L VBG O2 Saturation % VBG Base Excess mEq/L Barometric Pressure mm/Hg POC Sodium (135-144) mEq/L Sodium 139 (136-145) mmol/L POC Potassium (3.3-5.0) mEq/L Potassium 5.0 D (3.5-5.1) mmol/L POC Chloride (101-112) mEq/L Chloride 109 H (98-107) mmol/L Carbon Dioxide 25 (21-32) mmol/L POC Total CO2 (24-31) mEq/l Anion Gap 5.0 (3-11) POC Anion Gap (16-25) mmol/L POC BUN (7-18) mg/dl BUN 16 (7-18) mg/dl Creatinine 0.95 (0.6-1.4) mg/dl POC Creatinine (0.6-1.3) mg/dl Est Cr Clr Drug Dosing 87.5 ml/min Est GFR ( Amer) 101.9 Est GFR (Non-Af Amer) 87.9 BUN/Creatinine Ratio 16.7 (10-20) Glucose 113 H (70-99) mg/dl POC Glucose (other) (70-99) mg/dl POC Lactic Acid Antwan (0.90-1.70) mmol/L Lactate 1.9 (0.4-2.0) mmol/L Calcium 9.0 (8.5-10.1) mg/dl POC Ioniz Calcium Dhruv (1.12-1.32) mmol/l Magnesium Total Bilirubin 0.8 (0.2-1) mg/dl AST 17 (15-37) U/L ALT 24 (12-78) U/L Alkaline Phosphatase 72 (45-117) U/L Troponin I (0-0.045) ng/ml Total Protein 6.4 (6.4-8.2) gm/dl Albumin 3.3 L (3.4-5.0) gm/dl Globulin 3.1 (2.5-4.0) gm/dl Albumin/Globulin Ratio 1.1 (0.9-2) Lipase (73-393) U/L Urine Color Urine Appearance (Clear) Urine pH (4.5-7.5) Ur Specific [place] (1.000-1.030) Urine Protein (Negative) Urine Glucose (UA) (Negative) Urine Ketones (Negative) Urine Blood (Negative) Urine Nitrite (Negative) Urine Bilirubin (Negative) Urine Urobilinogen (Negative) Ur Leukocyte Esterase (Negative) 04/07/19 04/07/19 04/06/19 Range/Units 06:21 02:33 20:19 WBC 10.70 (4.8-10.8) K/uL RBC 4.64 L (4.7-6.1) M/uL Hgb 15.3 (14.0-18.0) g/dL POC Hgb (14.0-18.0) g/dl Hct 45.4 (42-52) % POC Hct (42-52) % MCV 97.8 (80-100) fL MCH 33.0 (25-34) pg MCHC 33.7 (32-36) g/dL RDW Std Deviation 48.8 H (36.4-46.3) fL RDW Coeff of Cassidy 13.8 (11.5-14.5) % Plt Count 286 (130-400) K/uL MPV 10.5 H (7.4-10.4) fL Immature Gran % (Auto) 0.3 % Neut % (Auto) 89.3 % Lymph % (Auto) 4.6 % [place] % (Auto) 5.7 % Eos % (Auto) 0.0 % Baso % (Auto) 0.1 % Immature Gran # (Auto) 0.03 H (0.00-0.02) K/uL Neut # (Auto) 9.56 H (1.4-6.5) K/uL Lymph # (Auto) 0.49 L (1.2-3.4) K/uL [place] # (Auto) 0.61 H (0.11-0.59) K/uL Eos # (Auto) 0.00 (0-0.5) K/uL Baso # (Auto) 0.01 (0-0.2) K/uL PT (9.0-12.0) Seconds INR (0.9-1.1) APTT (21.0-31.0) Seconds PTT Ratio VBG pH (7.36-7.41) VBG pCO2 (38-50) mmHg VBG pO2 mmHg VBG HCO3 mmol/L VBG O2 Saturation % VBG Base Excess mEq/L Barometric Pressure mm/Hg POC Sodium (135-144) mEq/L Sodium (136-145) mmol/L POC Potassium (3.3-5.0) mEq/L Potassium (3.5-5.1) mmol/L POC Chloride (101-112) mEq/L Chloride (98-107) mmol/L Carbon Dioxide (21-32) mmol/L POC Total CO2 (24-31) mEq/l Anion Gap (3-11) POC Anion Gap (16-25) mmol/L POC BUN (7-18) mg/dl BUN (7-18) mg/dl Creatinine (0.6-1.4) mg/dl POC Creatinine (0.6-1.3) mg/dl Est Cr Clr Drug Dosing ml/min Est GFR ( Amer) Est GFR (Non-Af Amer) BUN/Creatinine Ratio (10-20) Glucose (70-99) mg/dl POC Glucose (other) (70-99) mg/dl POC Lactic Acid [place] 1.26 (0.90-1.70) mmol/L Lactate (0.4-2.0) mmol/L Calcium (8.5-10.1) mg/dl POC Ioniz Calcium Dhruv (1.12-1.32) mmol/l Magnesium Total Bilirubin (0.2-1) mg/dl AST (15-37) U/L ALT (12-78) U/L Alkaline Phosphatase (45-117) U/L Troponin I (0-0.045) ng/ml Total Protein (6.4-8.2) gm/dl Albumin (3.4-5.0) gm/dl Globulin (2.5-4.0) gm/dl Albumin/Globulin Ratio (0.9-2) Lipase (73-393) U/L Urine Color Dark Yellow Urine Appearance Clear (Clear) Urine pH 5.5 (4.5-7.5) Ur Specific [place] > 1.045 H (1.000-1.030) Urine Protein Negative (Negative) Urine Glucose (UA) Negative (Negative) Urine Ketones Trace H (Negative) Urine Blood Negative (Negative) Urine Nitrite Negative (Negative) Urine Bilirubin Negative (Negative) Urine Urobilinogen Negative (Negative) Ur Leukocyte Esterase Negative (Negative) 04/06/19 04/06/19 04/06/19 Range/Units 20:03 17:17 17:13 WBC (4.8-10.8) K/uL RBC (4.7-6.1) M/uL Hgb (14.0-18.0) g/dL POC Hgb 14.6 (14.0-18.0) g/dl Hct (42-52) % POC Hct 43 (42-52) % MCV (80-100) fL MCH (25-34) pg MCHC (32-36) g/dL RDW Std Deviation (36.4-46.3) fL RDW Coeff of Cassidy (11.5-14.5) % Plt Count (130-400) K/uL MPV (7.4-10.4) fL Immature Gran % (Auto) % Neut % (Auto) % Lymph % (Auto) % [place] % (Auto) % Eos % (Auto) % Baso % (Auto) % Immature Gran # (Auto) (0.00-0.02) K/uL Neut # (Auto) (1.4-6.5) K/uL Lymph # (Auto) (1.2-3.4) K/uL [place] # (Auto) (0.11-0.59) K/uL Eos # (Auto) (0-0.5) K/uL Baso # (Auto) (0-0.2) K/uL PT (9.0-12.0) Seconds INR (0.9-1.1) APTT (21.0-31.0) Seconds PTT Ratio VBG pH 7.29 L (7.36-7.41) VBG pCO2 48 (38-50) mmHg VBG pO2 28 mmHg VBG HCO3 23 mmol/L VBG O2 Saturation < 60.0 % VBG Base Excess -4.0 mEq/L Barometric Pressure 730.1 mm/Hg POC Sodium 138 (135-144) mEq/L Sodium (136-145) mmol/L POC Potassium 4.0 (3.3-5.0) mEq/L Potassium (3.5-5.1) mmol/L POC Chloride 102 (101-112) mEq/L Chloride (98-107) mmol/L Carbon Dioxide (21-32) mmol/L POC Total CO2 23 L (24-31) mEq/l Anion Gap (3-11) POC Anion Gap 17.0 (16-25) mmol/L POC BUN 13 (7-18) mg/dl BUN (7-18) mg/dl Creatinine (0.6-1.4) mg/dl POC Creatinine 0.9 (0.6-1.3) mg/dl Est Cr Clr Drug Dosing ml/min Est GFR ( Amer) Est GFR (Non-Af Amer) BUN/Creatinine Ratio (10-20) Glucose (70-99) mg/dl POC Glucose (other) 127 H (70-99) mg/dl POC Lactic Acid [place]tw[place] (0.90-1.70) mmol/L Lactate (0.4-2.0) mmol/L Calcium (8.5-10.1) mg/dl POC Ioniz Calcium Dhruv 1.18 (1.12-1.32) mmol/l Magnesium 1.7 L Total Bilirubin (0.2-1) mg/dl AST (15-37) U/L ALT (12-78) U/L Alkaline Phosphatase (45-117) U/L Troponin I (0-0.045) ng/ml Total Protein (6.4-8.2) gm/dl Albumin (3.4-5.0) gm/dl Globulin (2.5-4.0) gm/dl Albumin/Globulin Ratio (0.9-2) Lipase (73-393) U/L Urine Color Urine Appearance (Clear) Urine pH (4.5-7.5) Ur Specific [place] (1.000-1.030) Urine Protein (Negative) Urine Glucose (UA) (Negative) Urine Ketones (Negative) Urine Blood (Negative) Urine Nitrite (Negative) Urine Bilirubin (Negative) Urine Urobilinogen (Negative) Ur Leukocyte Esterase (Negative) 04/06/19 04/06/19 04/06/19 Range/Units 17:12 17:12 17:12 WBC 8.67 (4.8-10.8) K/uL RBC 4.25 L (4.7-6.1) M/uL Hgb 14.2 (14.0-18.0) g/dL POC Hgb (14.0-18.0) g/dl Hct 42.4 (42-52) % POC Hct (42-52) % MCV 99.8 (80-100) fL MCH 33.4 (25-34) pg MCHC 33.5 (32-36) g/dL RDW Std Deviation 48.7 H (36.4-46.3) fL RDW Coeff of Cassidy 13.4 (11.5-14.5) % Plt Count 336 (130-400) K/uL MPV 10.5 H (7.4-10.4) fL Immature Gran % (Auto) 0.1 % Neut % (Auto) 81.0 % Lymph % (Auto) 11.9 % [place] % (Auto) 6.7 % Eos % (Auto) 0.2 % Baso % (Auto) 0.1 % Immature Gran # (Auto) 0.01 (0.00-0.02) K/uL Neut # (Auto) 7.02 H (1.4-6.5) K/uL Lymph # (Auto) 1.03 L (1.2-3.4) K/uL [place] # (Auto) 0.58 (0.11-0.59) K/uL Eos # (Auto) 0.02 (0-0.5) K/uL Baso # (Auto) 0.01 (0-0.2) K/uL PT 10.4 (9.0-12.0) Seconds INR 1.0 (0.9-1.1) APTT 28.5 (21.0-31.0) Seconds PTT Ratio 1.1 VBG pH (7.36-7.41) VBG pCO2 (38-50) mmHg VBG pO2 mmHg VBG HCO3 mmol/L VBG O2 Saturation % VBG Base Excess mEq/L Barometric Pressure mm/Hg POC Sodium (135-144) mEq/L Sodium 137 (136-145) mmol/L POC Potassium (3.3-5.0) mEq/L Potassium 3.8 (3.5-5.1) mmol/L POC Chloride (101-112) mEq/L Chloride 105 (98-107) mmol/L Carbon Dioxide 26 (21-32) mmol/L POC Total CO2 (24-31) mEq/l Anion Gap 6.0 (3-11) POC Anion Gap (16-25) mmol/L POC BUN (7-18) mg/dl BUN 13 (7-18) mg/dl Creatinine 1.06 (0.6-1.4) mg/dl POC Creatinine (0.6-1.3) mg/dl Est Cr Clr Drug Dosing 78.4 ml/min Est GFR ( Amer) 89.2 Est GFR (Non-Af Amer) 77.0 BUN/Creatinine Ratio 12.1 (10-20) Glucose 128 H (70-99) mg/dl POC Glucose (other) (70-99) mg/dl POC Lactic Acid [place]twan (0.90-1.70) mmol/L Lactate (0.4-2.0) mmol/L Calcium 8.8 (8.5-10.1) mg/dl POC Ioniz Calcium Dhruv (1.12-1.32) mmol/l Magnesium Cancelled Total Bilirubin 0.4 (0.2-1) mg/dl AST 16 (15-37) U/L ALT 28 (12-78) U/L Alkaline Phosphatase 90 (45-117) U/L Troponin I < 0.015 (0-0.045) ng/ml Total Protein 7.0 (6.4-8.2) gm/dl Albumin 3.8 (3.4-5.0) gm/dl Globulin 3.2 (2.5-4.0) gm/dl Albumin/Globulin Ratio 1.2 (0.9-2) Lipase 91 (73-393) U/L Urine Color Urine Appearance (Clear) Urine pH (4.5-7.5) Ur Specific [place] (1.000-1.030) Urine Protein (Negative) Urine Glucose (UA) (Negative) Urine Ketones (Negative) Urine Blood (Negative) Urine Nitrite (Negative) Urine Bilirubin (Negative) Urine Urobilinogen (Negative) Ur Leukocyte Esterase (Negative) Diagnostic Findings ADDENDUM Addendum: Upon further review, note is made of a small amount of pneumoperitoneum. In the absence of recent procedure, this suggests a perforated hollow viscus. The exact source is not evident on this exam however given small bowel wall thickening and stenoses of the mesenteric vessels, ischemic enteritis with small bowel source is a consideration. Findings could be correlated with clinical evidence for ischemic enteritis and surgical consultation could be obtained as indicated. Discussed with Dr. Roly Brennan at time of dictation. Electronically signed by: Madhu Cheng M.D. 04/07/2019 7:[address] abd pelvis IV con only CT DOSE: HISTORY: Trauma. Pain. lower pain TECHNIQUE: Multiaxial CT images of the abdomen and pelvis were performed following the use of intravenous contrast. A dose lowering technique was utilized adhering to the principles of ALARA. COMPARISON STUDY: 09/09/2017 FINDINGS: Lung bases are clear. The subcapsular collection previously described has resolved. Liver is uniform throughout. Trace amount of ascites within the paracolic gutter regions. Kidneys negative for hydronephrosis. Stable right renal cyst. Bowel pattern suggests wall thickening of the bulk of the small bowel. This is highly suggestive of diffuse enteritis. 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 IMPRESSION: 1. Mild abdominal and pelvic ascites. 2. 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 3. Interval resolution of the subcapsular collection previously described. 4. Diffuse small bowel enteritis. [facility], [place] [phone] CT Scan Report Patient: AIDAN JORDAN Date: 04/06/19 MR#: [id number]: [address] Acct ID:[id number]: [address] Date: [address] [place] [address] Zip: [place] [id number] Age: 58Location: ED Sex: M Room/Bed: Att Phy:Diagnosis: AB PAIN Meredith Phy: Tyesha Jones MDService Date: 04/06/19 [facility] Phy:Interpreting Phy: Hipolito Chen MD Admit Phy: Ordering Phy: Luis Manuel Klein DO cc: ~ CT angio chest dissec wo/w con CT DOSE: 876.22 mGy.cm HISTORY: Pain pain TECHNIQUE: Multiaxial CT images of the chest, abdomen, and pelvis were performed both before and after the intravenous administration of contrast to evaluate the aorta. Maximal intensity projection images were also obtained. A dose lowering technique was utilized adhering to the principles of ALARA. COMPARISON STUDY: 09/12/2017 FINDINGS: Normal thoracic aorta. Lungs are considered clear. No evidence for aneurysm or dissection. Mild emphysematous change. IMPRESSION: Mild emphysematous change. Normal thoracic aorta. The lungs are clear. US duplex mesenteric CLINICAL HISTORY: 58 years-old Male presenting with severe abdominal pain. TECHNIQUE: Real-time grayscale and color and spectral Doppler ultrasound imaging of the aorta and mesenteric vessels was performed. COMPARISON: CT from 04/16/2019. FINDINGS: Aorta: Patent. Normal waveform. Peak systolic velocity 89 cm/s. Celiac axis: Patent. Normal waveforms. Peak systolic velocity 182 cm/s. Hepatic artery: Patent. Normal waveforms. Peak systolic velocity 98 cm/s. Splenic artery: Patent. Normal waveforms. Peak systolic velocity 103 cm/s. Superior mesenteric artery: Patent. Normal waveforms. Peak systolic velocity 702 cm/s proximally, 375 cm/s in the midportion, and 221 cm/s distally. Inferior mesenteric artery: Not visualized. Reference ranges: Celiac artery: PSV ? 240 cm/s suggests stenosis ? 50%; PSV ? 320 cm/s suggests stenosis ? 70%. Superior mesenteric artery: PSV ? 295 cm/s suggests stenosis ? 50%; PSV ? 400 cm/s suggests stenosis ? 70%. IMPRESSION: 1. 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 Correlate clinically to exclude symptomatology related to bowel ischemia, which would be more likely to be chronic. Notably, this differs from the preliminary report. (1) Abdominal pain Abdominal location: unspecified location Qualified Code(s): R10.9 - Unspecified abdominal pain
[2019-04-07] MEDS ORDERED: ALBUMIN HUMAN 5% 12.5 GM/250 ML VIAL IV ONE (09:55)
--- NOTE | 2019-04-07 10:09 | Anesthesiology Consultation ---
Date of Service April 07, 2019 Assessment & Plan Chart Review Chart Review: Acceptable Risk for Surgery Consults Requested none Proposed Anesthesia Risk / Benefits Reviewed With: PT / POA / Parent / Guardian, Accepts Plan and Informed Consent Obtained History Surgery Operation Date: 04/07/19 07:00 Proposed Procedures p Exploratory Laparotomy, Possible Small Bowel Resection - Hipolito Peterson MD Height/Weight Height: 5 ft 10 in Weight: 86.6 kg Allergies Allergy/AdvReac Type Severity Reaction Status Date / Time No Known Allergies Allergy Mild Unverified 04/06/19 21:07 Medications Home Medications Medication Instructions Recorded Confirmed Last Taken Multivitamin Powder Pkg 1 packet PO DAILY 04/06/19 04/06/19 Unknown acetaminophen [Tylenol] 650 mg PO QID PRN 04/06/19 04/06/19 04/06/19 05:30 ibuprofen [Advil] 400 mg PO Q6H PRN 04/06/19 04/06/19 04/06/19 05:30 Active Medications Generic Name Dose Route Start Last Admin Trade Name Freq PRN Reason Stop Dose Admin Diphenhydramine HCl 50 mg 04/07/19 00:54 04/07/19 07:38 Benadryl IV 05/07/19 00:53 50 mg Q6H PRN Administration Pain Potassium Chloride/Sodium Chloride 20 meq in 1,000 mls @ 125 mls/hr 04/07/19 00:54 04/07/19 06:22 Normal Saline W/20 Meq Kcl IV 05/07/19 00:53 100 mls/hr .Q8H DOROTHY Infusion Famotidine 20 mg/ Syringe 5 mls @ 2.5 mls/min 04/07/19 01:45 04/07/19 09:07 IV 05/07/19 01:44 2.5 mls/min Q12 DOROTHY Administration Morphine Sulfate 4 mg 04/07/19 00:54 04/07/19 06:11 Morphine Sulfate IV 04/21/19 00:53 4 mg Q3H PRN Administration Pain Multivitamins 1 tab 04/07/19 09:00 04/07/19 09:06 Multivitamin Tab PO 05/07/19 08:59 Not Given DAILY DOROTHY NPO Date Last Intake of Fluids: 04/06/19 Time Last Intake of Fluids: 23:59 Date Last Intake of Solids: 04/06/19 Time Last Intake of Solids: 23:59 Past Medical History Medical History Cancer of ampulla of Vater Empyema Melanoma Pleural effusion on right Exercise / Class Metabolic Activity II 4-5 Yardwork/Stairs/Walk up hill Past Surgical History Surgical History H/O resection of pancreas Whipple 05/2016 History of cholecystectomy with Whipple History of thoracentesis Wrist fracture, left Past Anesthesia History No Hx of Anesthesia Complications and No Family Hx of Anesthesia Complications History of PONV No Hx of PONV and No Hx of Motion Sickness Social History Smoking Status: Former smoker Hx Alcohol Use: No Hx Substance Use: No Physical Exam Vital Signs Last Vital Signs Temp 98.2 F 04/07/19 07:12 Pulse 88 04/07/19 07:12 Resp 19 04/07/19 07:12 BP 118/75 04/07/19 07:12 Pulse Ox 97 04/07/19 07:12 ENMT Mouth: no dentition abnormality Thyromental Distance: > or= 3.5 Finger Breadths Mallampati Class: I Neck normal visual inspection Respiratory normal respiratory effort Auscultation: lungs clear to auscultation bilaterally Cardiovascular Rate/Rhythm: regular rate and regular rhythm Testing Laboratory Results 04/07/19 06:21 04/07/19 06:21 PT 11.1 Seconds (9.0-12.0) 04/07/19 06:21 INR 1.1 (0.9-1.1) 04/07/19 06:21 APTT 32.2 Seconds (21.0-31.0) H 04/07/19 06:21 Urine Color Dark Yellow 04/07/19 02:33 Urine Appearance Clear (Clear) 04/07/19 02:33 Urine pH 5.5 (4.5-7.5) 04/07/19 02:33 Ur Specific [place] > 1.045 (1.000-1.030) H 04/07/19 02:33 Urine Protein Negative (Negative) 04/07/19 02:33 Urine Glucose (UA) Negative (Negative) 04/07/19 02:33 Urine Ketones Trace (Negative) H 04/07/19 02:33 Urine Nitrite Negative (Negative) 04/07/19 02:33 Ur Leukocyte Esterase Negative (Negative) 04/07/19 02:33 Electrocardiogram Date: 04/07/19 Findings: + NSST changes and + ST @ (102 bpm) supraventricular complexes
[2019-04-07] MEDS ORDERED: ePHEDrine sulfate 50 MG/ML AMP IV PRN (10:10)
[2019-04-07] MEDS ORDERED: ATROPINE SULFATE 0.1 MG/ML 10ML SYR IV PRN (10:10)
[2019-04-07] MEDS ORDERED: HYDROmorphone INJ 1 MG/ML SYRINGE IV PRN (10:10)
[2019-04-07] MEDS ORDERED: cefOXitin 2,000 MG in DEXTROSE 5% 50 ML IV SCH (10:15)
--- NOTE | 2019-04-07 10:26 | Electrocardiogram Report ---
Test Reason : Blood Pressure : / mmHG Vent. Rate : 102 BPM Atrial Rate : 102 BPM P-R Int : 120 ms QRS Dur : 070 ms QT Int : 332 ms P-R-T Axes : 053 017 082 degrees QTc Int : 432 ms Sinus tachycardia with Premature supraventricular complexes Nonspecific ST and T wave abnormality Abnormal ECG When compared with ECG of 11-SEP-2017 10:53, Premature supraventricular complexes are now Present ST now depressed in Lateral leads Nonspecific T wave abnormality now evident in Lateral leads Confirmed by Luis Manuel Mcdonald ([id number]) on 04/07/2019 10:25:52 AM Referred By: REFERRED SELF Confirmed By:Luis Manuel Mcdonald
[2019-04-07] MEDS ORDERED: BUPIVACAINE 0.5 % 5 MG/1 ML MPF 30ML VIAL ONE (10:28)
[2019-04-07] MEDS ORDERED: KETAMINE HCL INJ 50 MG/ML 10 ML VIAL ONE (11:33)
[2019-04-07] MEDS ORDERED: SODIUM CHLORIDE 0.9% INJ 10 ML VIAL ONE (11:33)
--- NOTE | 2019-04-07 12:18 | Post Operative Brief Note ---
Immediate Post Op Note v1 Date of Surgery April 07, 2019 Pre & Post Diagnosis Operation Date: 04/07/19 07:00 Pre-Op Diagnosis: INTRACTABLE ABDOMINAL PAIN, ENTERITIS, ASCITES Post-Op Diagnosis: INTRACTABLE ABDOMINAL PAIN, ENTERITIS, ASCITES, perforated gastrojejunostomy anatomosis I identified the patient and participated in the time-out.: Yes Procedure Operation Date: 04/07/19 07:00 Actual Procedures p Exploratory Laparotomy, repair of perforated gastrojeunostomy anatomosis(Not Applicable) - Hipolito Peterson MD Surgeon Hipolito Peterson MD Manager Laundry Sherice Aquino PA-C Estimated Blood Loss 10 Findings Consistent with Post-Op Diagnosis Drains Mu Drain (19fr) and Paredes Catheter Anesthesia Type General
[2019-04-07] MEDS: fentaNYL citrate 100 MCG/2 ML VIAL IV PRN ×2 (12:39→12:44)
--- NOTE | 2019-04-07 13:17 | Anesthesiology Progress Note ---
Date of Service April 07, 2019 Anesthesia Post Procedure Vital Signs Vital Signs: Temp Pulse Pulse Pulse Resp BP BP 04/07/19 13:00 98.4 F 77 16 118/72 04/07/19 12:50 80 16 116/70 04/07/19 12:40 72 16 127/77 04/07/19 12:30 73 16 132/74 04/07/19 12:24 98.6 F 73 16 122/81 04/07/19 10:03 98.4 F 109 H 20 04/07/19 07:12 98.2 F 88 19 04/07/19 01:04 97.7 F 100 H 16 04/07/19 00:50 97.7 F 100 H 16 04/07/19 00:33 88 20 118/72 04/06/19 23:45 97.7 F 100 H 16 04/06/19 23:00 84 20 04/06/19 21:00 81 20 04/06/19 19:49 87 20 04/06/19 18:15 83 20 04/06/19 17:16 97.9 F 76 24 113/82 BP Pulse Ox 04/07/19 13:00 96 04/07/19 12:50 96 04/07/19 12:40 100 04/07/19 12:30 100 04/07/19 12:24 99 04/07/19 10:03 128/80 94 04/07/19 07:12 118/75 97 04/07/19 01:04 131/85 99 04/07/19 00:50 131/85 99 04/07/19 00:33 98 04/06/19 23:45 131/85 99 04/06/19 23:00 118/79 98 04/06/19 21:00 118/75 100 04/06/19 19:49 114/86 96 04/06/19 18:15 94/59 L 96 04/06/19 17:16 97 Pain Intensity Abdomen: Pain Intensity: 8 Transfer of Care Handoff Completed per policy Notes Mental Status: alert / awake / arousable and participated in evaluation Patient Amnestic to Procedure: Yes Nausea / Vomiting: adequately controlled Pain: adequately controlled Airway Patency, RR, SpO2: stable & adequate BP & HR: stable & adequate Hydration State: stable & adequate Anesthetic Complications: no major complications apparent and Pt Satisfied with anesthetic care
[2019-04-07] MEDS ORDERED: ACETAMINOPHEN 1,000 MG/100 ML VIAL IV PRN (13:23)
[2019-04-07] MEDS ORDERED: PIPERACILL/TAZOBAC CONSULT ACTIVE PRN (15:19)
[2019-04-07] MEDS ORDERED: PANTOprazole 80 MG in DEXTROSE 5% 100 ML IV ONE (15:30)
[2019-04-07] MEDS ORDERED: PIPERACILLIN/TAZOBACTAM 3.375 GM in DEXTROSE 5% 100 ML IV ONE (15:45)
[2019-04-07] MEDS: PANTOprazole 40 MG in DEXTROSE 5% 100 ML IV SCH ×2 (15:58→21:03)
--- NOTE | 2019-04-07 17:17 | Hospitalist Progress Note ---
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 He is feeling improved but with abd pain related to post-op status. NGT in place. Pt denies fever, SOB, chest pain, n/v/c/d, LE pain or swelling. Review of Systems Review of Systems: Pertinent positives and negatives reviewed in HPI--all others negative Physical Exam Constitutional: WD/WN, vitals as above Eyes: normal visual disla by confrontation and + anicteric sclerae Neck: normal visual inspection and trachea midline Respiratory: normal respiratory effort, lungs clear to auscultation Cardiovascular: Rate/Rhythm: regular rate and regular rhythm Gastrointestinal (Abdomen): Inspection/Auscultation: abdomen not distended Percussion/Palpation: abdomen soft Musculoskeletal: Head/Neck/Chest: normocephalic and head atraumatic negative for edema, peripheral pulses intact Skin: no rashes, warm and dry Neurologic: awake; not confused Speech / Cognition: normal speech Psychiatric: A+Ox3, euthymic affect Results & Data Vital Signs (Past 12 Hours) Vital Signs Temp Pulse Pulse Pulse Resp BP BP 04/07/19 14:45 87 04/07/19 14:40 99 H 18 141/84 H 04/07/19 14:24 91 H 22 123/79 04/07/19 14:09 87 20 123/79 04/07/19 13:55 37 C 85 20 127/81 04/07/19 13:40 89 18 128/78 04/07/19 13:27 36.8 C 85 19 128/79 04/07/19 13:00 36.9 C 77 16 118/72 04/07/19 12:50 80 16 116/70 04/07/19 12:40 72 16 127/77 04/07/19 12:30 73 16 132/74 04/07/19 12:24 37.0 C 73 16 122/81 04/07/19 10:03 36.9 C 109 H 20 128/80 04/07/19 07:12 36.8 C 88 19 118/75 Pulse Ox 04/07/19 14:45 04/07/19 14:40 96 04/07/19 14:24 94 04/07/19 14:09 93 04/07/19 13:55 97 04/07/19 13:40 98 04/07/19 13:27 98 04/07/19 13:00 96 04/07/19 12:50 96 04/07/19 12:40 100 04/07/19 12:30 100 04/07/19 12:24 99 04/07/19 10:03 94 04/07/19 07:12 97 PG Care Time/CCT Total # of Minutes Spent Total Time Spent with Patient: Total time spent is greater than 50% in coordination of care (as documented) at patient's floor/unit and/or counseling patient: (1) Abdominal pain Abdominal location: unspecified location Qualified Code(s): R10.9 - Unspecified abdominal pain
[2019-04-07] MEDS ORDERED: FAMOTIDINE 20 MG in SYRINGE 3 ML IV SCH (21:00)
[2019-04-07] MEDS: PIPERACILLIN/TAZOBACTAM 3.375 GM in DEXTROSE 5% 100 ML IV SCH (21:03)
--- NOTE | 2019-04-07 21:59 | Operative Report ---
DATE OF OPERATION: 04/07/2019 PREOPERATIVE DIAGNOSIS: Abdominal pain, free air. POSTOPERATIVE DIAGNOSIS: Perforation of gastrojejunal anastomosis. PROCEDURE: Exploratory laparotomy with repair of gastrojejunal anastomosis. SURGEON: Hipolito Peterson MD COCKTAIL WAITRESS: Sherice Aquino PA-C FINDINGS: The patient had 750 mL of bilious gastric contents within his abdominal cavity upon opening the abdomen. There was a lot of fibrinous exudate throughout the small bowel. There were some pockets of fluid that were opened in order to drain the fluid from the abdomen. The source of the fluid proved to be a 1.2 cm perforation on the posterior aspect of the gastrojejunal anastomosis. The liver was of normal size and contour. There was no evidence of mass lesion in the liver. There were no other suspicious appearing lesions identified. TECHNIQUE: The patient was given a general anesthetic and the area was prepped and draped in the usual sterile fashion. Vertical midline incision was made through the scar of the previous incision, carried around to the right side of the umbilicus. This was carried down through the subcutaneous tissue to the fascia which was opened. The peritoneum was opened and there was extrusion of some of the bilious fluid. I then opened all of the layers along the length of the incision. There were no adhesions to the anterior abdominal wall. The abdomen was then explored. The stomach was easily seen as was the anterior aspect of the gastrojejunal anastomosis. I then was able to identify the perforation. I then mobilized any of the small bowel from around the area of the proximal and distal limbs of the B2 anastomosis. I opened any interloop areas and drained any of that fluid and removed it all using suction. The mesentery had thickening and this was divided to free the medial aspect of the stomach. I then was able to identify the anterior and posterior dixon of the opening of the perforation. This was closed with interrupted sutures of 2-0 silk. There was only a 2.5 cm rim of omentum extending along the greater curvature. Up towards the fundus, I divided the omentum and then it off the wall of the stomach creating a pedicle using a clamp, clamp, and divide and ligate technique ligating with 2-0 silk ties until there was enough of a pedicle with adequate coverage over the area of the perforation. This was placed over the perforation and held in place with the strings of the previously placed 2-0 silk sutures. The abdomen was then irrigated with a copious amount of warm saline solution. This was all removed. The return was fairly clear. A drain was then brought through the left anterior abdominal wall and placed beneath the repair and extending down towards the posterior aspect of the abdomen. It was secured with a 3-0 nylon suture. The fascia was then closed with a running #1 PDS and the skin was closed with janine. The estimated blood loss was 10 mL. Sponge, needle and instrument counts were correct prior to closure. The patient tolerated the surgical procedure without complication and was transferred to recovery. I attest to the content of the Intraoperative Record and any orders documented therein. Any exceptions are noted below. MTDD
[2019-04-08] MEDS: MoRPHine SULFATE 4 MG/ML 1 ML CARP\\VIAL IV PRN ×12 (00:14→23:46)
[2019-04-08] MEDS: PANTOprazole 40 MG in DEXTROSE 5% 100 ML IV SCH ×5 (02:03→21:27)
[2019-04-08] MEDS: PIPERACILLIN/TAZOBACTAM 3.375 GM in DEXTROSE 5% 100 ML IV SCH ×3 (05:23→22:19)
[2019-04-08] MEDS: NSS + 20MEQ KCL 20 MEQ/1,000 ML BAG IV SCH ×3 (05:23→20:04)
[2019-04-08 06:30] LABS: Hematocrit (blood only) 39.5 % (42-52); Hemoglobin 13.2 g/dL (14.0-18.0); Mean Corpuscular Hemoglobin 32.9 pg (25-34); Mean Corpuscular Hgb Conc 33.4 g/dL (32-36); Mean Corpuscular Volume 98.5 fL (80-100); Mean Platelet Volume 10.5 fL (7.4-10.4); Platelet Count 242 K/uL (130-400); RDW Standard Deviation 50.5 fL (36.4-46.3); Red Blood Count 4.01 M/uL (4.7-6.1); White Blood Count 7.14 K/uL (4.8-10.8)
[2019-04-08 06:37] LABS: INR 1.2 (0.9-1.1); Prothrombin Time 12.4 Seconds (9.0-12.0)
[2019-04-08 06:52] LABS: Basophils # (auto) 0.01 K/uL (0-0.2); Basophils % (auto) 0.1 %; Echinocytes 1+; Eosinophils # (auto) 0.01 K/uL (0-0.5); Eosinophils % (auto) 0.1 %; Immature Granulocytes # (auto) 0.02 K/uL (0.00-0.02); Immature Granulocytes % (auto) 0.3 %; Lymphocytes % (auto) 5.6 %; Monocytes # (auto) 0.73 K/uL (0.11-0.59); Monocytes % (auto) 10.2 %; Neutrophils # (auto) 5.97 K/uL (1.4-6.5); Neutrophils % (auto) 83.7 %
[2019-04-08 07:05] LABS: Albumin Level 2.4 gm/dl (3.4-5.0); BUN Creatinine Ratio 18.5 (10-20); Calcium 8.4 mg/dl (8.5-10.1); Est GFR (African American) 87.2; Est GFR (Non-African American) 75.3; Potassium 4.7 mmol/L (3.5-5.1)
[2019-04-08 07:07] LABS: Albumin Globulin Ratio 0.8 (0.9-2); Bilirubin,Total 0.7 mg/dl (0.2-1); Globulin 3.2 gm/dl (2.5-4.0); Total Protein 5.6 gm/dl (6.4-8.2)
--- NOTE | 2019-04-08 09:17 | Surgery Progress Note ---
Date of Service April 08, 2019 Assessment & Plan (1) Perforated abdominal viscus: POD # 1 s/p ex lap, repair of perforated gastroduodenostomy with grahm patch -vitals stable, afebrile - post op pain moderate, controlled - adequate urine output - NGT with bilious output (1700 last 24 hours) - susan drain with serous output - Peritoneal culture= Gram negative bacilli Plan: Continue IV morphine and IV Tylenol prn pain Continue NPO, NGT to LIS Continue IV fluids at 125 mls/hr Continue IV Zosyn, await final culture results Continue Protonix drip Continue susan drain to bulb suction Continue Russell, if up and ambulating well can dc russell Continue IV Zofran prn nausea Continue SCDs for DVT prophylaxis Continue incentive spirometry activity ad pino repeat am labs while npo Dr. Peterson has seen and examined pt, agrees with above Subjective feeling better today surgical pain at incision, preop pain resolved had small amount of blood in urine in Russell wants to get out of bed today possibly walk hallway Physical Exam Constitutional: WD/WN, vitals as above no acute distress ENMT: NGT left nare at 55 cm Respiratory: normal respiratory effort; no respiratory distress Gastrointestinal (Abdomen): Inspection/Auscultation: abdomen normal to inspection and + abdominal surgical drain present (serous drainage); abdomen not distended and + abnormal bowel sounds Percussion/Palpation: + abdomen tender (at incision site) and abdomen soft; no guarding and abdomen not rigid NGT with dark bilious output Skin: no rashes, warm and dry + incision (covered with dressing clean and dry) Psychiatric: Orientation: alert and oriented x 3 Results & Data Vital Signs (Past 12 Hours) Vital Signs Temp Pulse Pulse Pulse Resp BP Pulse Ox 04/08/19 07:15 37.2 C 87 19 133/77 94 04/08/19 04:03 36.8 C 91 H 17 136/79 94 04/08/19 00:01 37.0 C 91 H 24 128/83 95 04/08/19 00:00 87 Laboratory Results 04/08/19 04/08/19 04/08/19 Range/Units 06:04 06:04 06:04 WBC 7.14 (4.8-10.8) K/uL RBC 4.01 L (4.7-6.1) M/uL Hgb 13.2 L (14.0-18.0) g/dL Hct 39.5 L (42-52) % MCV 98.5 (80-100) fL MCH 32.9 (25-34) pg MCHC 33.4 (32-36) g/dL RDW Std Deviation 50.5 H (36.4-46.3) fL RDW Coeff of Cassidy 14.0 (11.5-14.5) % Plt Count 242 (130-400) K/uL MPV 10.5 H (7.4-10.4) fL Immature Gran % (Auto) 0.3 % Neut % (Auto) 83.7 % Lymph % (Auto) 5.6 % [place] % (Auto) 10.2 % Eos % (Auto) 0.1 % Baso % (Auto) 0.1 % Immature Gran # (Auto) 0.02 (0.00-0.02) K/uL Neut # (Auto) 5.97 (1.4-6.5) K/uL Lymph # (Auto) 0.40 L (1.2-3.4) K/uL [place] # (Auto) 0.73 H (0.11-0.59) K/uL Eos # (Auto) 0.01 (0-0.5) K/uL Baso # (Auto) 0.01 (0-0.2) K/uL Echinocytes 1+ PT 12.4 H (9.0-12.0) Seconds INR 1.2 H (0.9-1.1) Sodium 137 (136-145) mmol/L Potassium 4.7 (3.5-5.1) mmol/L Chloride 109 H (98-107) mmol/L Carbon Dioxide 25 (21-32) mmol/L Anion Gap 3.0 (3-11) BUN 20 H (7-18) mg/dl Creatinine 1.08 (0.6-1.4) mg/dl Est Cr Clr Drug Dosing 77.0 ml/min Est GFR ( Amer) 87.2 Est GFR (Non-Af Amer) 75.3 BUN/Creatinine Ratio 18.5 (10-20) Glucose 105 H (70-99) mg/dl Lactate (0.4-2.0) mmol/L Calcium 8.4 L (8.5-10.1) mg/dl Total Bilirubin 0.7 (0.2-1) mg/dl AST 14 L (15-37) U/L ALT 18 (12-78) U/L Alkaline Phosphatase 59 (45-117) U/L Total Protein 5.6 L (6.4-8.2) gm/dl Albumin 2.4 L (3.4-5.0) gm/dl Globulin 3.2 (2.5-4.0) gm/dl Albumin/Globulin Ratio 0.8 L (0.9-2) 04/07/19 Range/Units 09:16 WBC (4.8-10.8) K/uL RBC (4.7-6.1) M/uL Hgb (14.0-18.0) g/dL Hct (42-52) % MCV (80-100) fL MCH (25-34) pg MCHC (32-36) g/dL RDW Std Deviation (36.4-46.3) fL RDW Coeff of Cassidy (11.5-14.5) % Plt Count (130-400) K/uL MPV (7.4-10.4) fL Immature Gran % (Auto) % Neut % (Auto) % Lymph % (Auto) % [place] % (Auto) % Eos % (Auto) % Baso % (Auto) % Immature Gran # (Auto) (0.00-0.02) K/uL Neut # (Auto) (1.4-6.5) K/uL Lymph # (Auto) (1.2-3.4) K/uL [place]ston # (Auto) (0.11-0.59) K/uL Eos # (Auto) (0-0.5) K/uL Baso # (Auto) (0-0.2) K/uL Echinocytes PT (9.0-12.0) Seconds INR (0.9-1.1) Sodium (136-145) mmol/L Potassium (3.5-5.1) mmol/L Chloride (98-107) mmol/L Carbon Dioxide (21-32) mmol/L Anion Gap (3-11) BUN (7-18) mg/dl Creatinine (0.6-1.4) mg/dl Est Cr Clr Drug Dosing ml/min Est GFR ( Amer) Est GFR (Non-Af Amer) BUN/Creatinine Ratio (10-20) Glucose (70-99) mg/dl Lactate 1.9 (0.4-2.0) mmol/L Calcium (8.5-10.1) mg/dl Total Bilirubin (0.2-1) mg/dl AST (15-37) U/L ALT (12-78) U/L Alkaline Phosphatase (45-117) U/L Total Protein (6.4-8.2) gm/dl Albumin (3.4-5.0) gm/dl Globulin (2.5-4.0) gm/dl Albumin/Globulin Ratio (0.9-2)
[2019-04-08] MEDS: ENOXAPARIN INJ 40 MG/0.4 ML SYR SQ SCH (10:42)
--- NOTE | 2019-04-08 21:24 | Hospitalist Progress Note ---
Date of Service April 08, 2019 Assessment & Plan (1) Perforated abdominal viscus: POD #1 -- s/p ex lap and repair of perforated gastrojejunal anastomosis. at time of exploratory laparotomy he had evidence of a perforation of his gastrojejunal anastomosis from his prior Whipple procedure. He had had a Whipple procedure for pancreatic ca in the past - by report. the perforation per the op report was repaired by Tawanda patch. defer NG tube management, diet, fluids to gen surgery. appreciate their assistance in this complicated case. (2) Peritonitis: patient with evidence of peritonitis during his ex lap procedure with bilious ascites present in the peritoneal cavity. culture from the OR is growing a GNR. continue zosyn. follow culture. abdominal pain today is from the surgery itself and not ongoing peritonitis fortunately. (3) Tobacco use disorder: history of such but no longer smoking at this time - by report (4) DVT prophylaxis: lovenox 40mg daily significant other updated at bedside incentive spirometry, ambulate, pain control keep on tele overnight if tele is stable can likely transfer to med/surg floor tomorrow Subjective patient c/o abdominal pain but certainly no worse than yesterday prior to his operation. if anything the pain is improved. no passage of flatus. NG tube in place. tele overnight acceptable. denies dyspnea. walking the hallways with his significant other today. Review of Systems Constitutional: no fever and no chills Respiratory: no dyspnea and no dyspnea on exertion Cardiovascular: no chest pain Physical Exam Constitutional: no acute distress and no altered mental status ENMT: external ear and nose normal, oropharynx normal NG tube in place Respiratory: normal respiratory effort, lungs clear to auscultation Auscultation: + diminished lung sounds (bases) Cardiovascular: Rate/Rhythm: regular rhythm and + tachycardic Heart Sounds: normal S1 and normal S2; no murmur Vessels: posterior tibial pulses present and dorsalis pedis pulses present; no JVD Extremities: no edema Gastrointestinal (Abdomen): Inspection/Auscultation: + abdomen distended; + abnormal bowel sounds (markedly decreased) Percussion/Palpation: + abdomen tender (especially midline); no guarding, abdomen not rigid and no hepatosplenomegaly Skin: dressings intact midline of abdomen Psychiatric: A+Ox3, euthymic affect Results & Data Vital Signs (Past 12 Hours) Vital Signs Temp Pulse Pulse Pulse Resp BP Pulse Ox 04/08/19 19:39 37.5 C 100 H 18 131/79 94 04/08/19 15:33 89 16 124/77 98 04/08/19 14:45 103 H 04/08/19 11:53 36.9 C 93 H 20 146/76 H 95 04/08/19 10:25 88 Laboratory Results Laboratory Results - last 24 hr 04/08/19 04/08/19 04/08/19 06:04 06:04 06:04 WBC 7.14 RBC 4.01 L Hgb 13.2 L Hct 39.5 L MCV 98.5 MCH 32.9 MCHC 33.4 RDW Std Deviation 50.5 H RDW Coeff of Cassidy 14.0 Plt Count 242 MPV 10.5 H Immature Gran % (Auto) 0.3 Neut % (Auto) 83.7 Lymph % (Auto) 5.6 [place] % (Auto) 10.2 Eos % (Auto) 0.1 Baso % (Auto) 0.1 Immature Gran # (Auto) 0.02 Neut # (Auto) 5.97 Lymph # (Auto) 0.40 L [place] # (Auto) 0.73 H Eos # (Auto) 0.01 Baso # (Auto) 0.01 Echinocytes 1+ PT 12.4 H INR 1.2 H Sodium 137 Potassium 4.7 Chloride 109 H Carbon Dioxide 25 Anion Gap 3.0 BUN 20 H Creatinine 1.08 Est Cr Clr Drug Dosing 77.0 Est GFR ( Amer) 87.2 Est GFR (Non-Af Amer) 75.3 BUN/Creatinine Ratio 18.5 Glucose 105 H Calcium 8.4 L Total Bilirubin 0.7 AST 14 L ALT 18 Alkaline Phosphatase 59 Total Protein 5.6 L Albumin 2.4 L Globulin 3.2 Albumin/Globulin Ratio 0.8 L PG Care Time/CCT Total # of Minutes Spent Total Time Spent with Patient: Total time spent is greater than 50% in coordination of care (as documented) at patient's floor/unit and/or counseling patient:
[2019-04-09] MEDS: PANTOprazole 40 MG in DEXTROSE 5% 100 ML IV SCH ×5 (02:23→23:41)
[2019-04-09] MEDS: MoRPHine SULFATE 4 MG/ML 1 ML CARP\\VIAL IV PRN ×7 (02:58→23:52)
[2019-04-09] MEDS: NSS + 20MEQ KCL 20 MEQ/1,000 ML BAG IV SCH ×3 (03:00→18:43)
[2019-04-09] MEDS: PIPERACILLIN/TAZOBACTAM 3.375 GM in DEXTROSE 5% 100 ML IV SCH (06:07)
--- NOTE | 2019-04-09 06:53 | Surgery Progress Note ---
Date of Service April 09, 2019 Assessment & Plan (1) Perforated abdominal viscus: Postoperative day #2 status post repair/closure of perforated gastrojejunal anastomosis Drain has only serosanguineous No evidence of continuing drainage Continue with PPI Continue antibiotics Would leave NG tube in place today until peristalsis returns and then would perform Gastrografin contrast study administered through the NG tube prior to removing it to assure there is no leak. Encouraged continuing ambulation. Present on Admission?: Yes Subjective Postoperative day #2 status post repair/closure of perforated gastrojejunal anastomosis Feels much better this morning Has not had flatus or bowel movement Much less pain today Ambulated in the halls yesterday SOPHIA with 45 cc out yesterday, 15 cc out for shift today, serosanguineous Physical Exam Gastrointestinal (Abdomen): Inspection/Auscultation: + abdomen distended (Mild) and + abdominal surgical incision (Clean, dry and intact) Percussion/Palpation: + abdomen tender (Incisional only) and abdomen soft Elliot wel sounds are present today but not yet normal in amount Results & Data Vital Signs (Past 12 Hours) Vital Signs Temp Pulse Pulse Pulse Resp BP BP 04/09/19 03:01 37.6 C H 83 18 144/85 H 04/08/19 23:45 81 04/08/19 23:42 36.8 C 88 18 124/82 04/08/19 19:39 37.5 C 100 H 18 131/79 Pulse Ox 04/09/19 03:01 95 04/08/19 23:45 04/08/19 23:42 93 04/08/19 19:39 94 Laboratory Results 04/08/19 Range/Units 06:04 Sodium 137 (136-145) mmol/L Potassium 4.7 (3.5-5.1) mmol/L Chloride 109 H (98-107) mmol/L Carbon Dioxide 25 (21-32) mmol/L Anion Gap 3.0 (3-11) BUN 20 H (7-18) mg/dl Creatinine 1.08 (0.6-1.4) mg/dl Est Cr Clr Drug Dosing 77.0 ml/min Est GFR ( Amer) 87.2 Est GFR (Non-Af Amer) 75.3 BUN/Creatinine Ratio 18.5 (10-20) Glucose 105 H (70-99) mg/dl Calcium 8.4 L (8.5-10.1) mg/dl Total Bilirubin 0.7 (0.2-1) mg/dl AST 14 L (15-37) U/L ALT 18 (12-78) U/L Alkaline Phosphatase 59 (45-117) U/L Total Protein 5.6 L (6.4-8.2) gm/dl Albumin 2.4 L (3.4-5.0) gm/dl Globulin 3.2 (2.5-4.0) gm/dl Albumin/Globulin Ratio 0.8 L (0.9-2)
[2019-04-09 08:08] LABS: Hematocrit (blood only) 34.4 % (42-52); Hemoglobin 11.4 g/dL (14.0-18.0); Mean Corpuscular Hemoglobin 32.5 pg (25-34); Mean Corpuscular Hgb Conc 33.1 g/dL (32-36); Mean Platelet Volume 9.9 fL (7.4-10.4); Platelet Count 215 K/uL (130-400); RDW Coefficient of Variation 13.7 % (11.5-14.5); RDW Standard Deviation 49.5 fL (36.4-46.3); Red Blood Count 3.51 M/uL (4.7-6.1); White Blood Count 5.74 K/uL (4.8-10.8)
[2019-04-09] MEDS: ENOXAPARIN INJ 40 MG/0.4 ML SYR SQ SCH (08:12)
[2019-04-09 08:16] LABS: Prothrombin Time 10.4 Seconds (9.0-12.0)
[2019-04-09 08:25] LABS: Basophils # (auto) 0.01 K/uL (0-0.2); Basophils % (auto) 0.2 %; Eosinophils % (auto) 1.7 %; Immature Granulocytes # (auto) 0.01 K/uL (0.00-0.02); Immature Granulocytes % (auto) 0.2 %; Lymphocytes # (auto) 0.32 K/uL (1.2-3.4); Lymphocytes % (auto) 5.6 %; Monocytes # (auto) 0.49 K/uL (0.11-0.59); Monocytes % (auto) 8.5 %; Neutrophils # (auto) 4.81 K/uL (1.4-6.5); Neutrophils % (auto) 83.8 %
[2019-04-09 08:40] LABS: Albumin Level 2.2 gm/dl (3.4-5.0); BUN Creatinine Ratio 15.8 (10-20); Calcium 8.6 mg/dl (8.5-10.1); Creatinine Clr Calc Pharmacy 92.5 ml/min; Est GFR (African American) 109.2; Est GFR (Non-African American) 94.3; Potassium 4.2 mmol/L (3.5-5.1)
[2019-04-09 08:43] LABS: Albumin Globulin Ratio 0.6 (0.9-2); Bilirubin,Total 0.8 mg/dl (0.2-1); Globulin 3.5 gm/dl (2.5-4.0); Total Protein 5.7 gm/dl (6.4-8.2)
--- NOTE | 2019-04-09 12:06 | Hospitalist Progress Note ---
Date of Service April 09, 2019 Assessment & Plan (1) Perforated abdominal viscus: POD #2 -- s/p ex lap and repair of perforated gastrojejunal anastomosis via Tawanda patch. Gastrojejunal anastomosis is present due to prior Whipple procedure for pancreatic ca. Cont to defer NG tube management, diet, fluids to gen surgery. Still no flatus thus NG tube to remain at least another day. Appreciate gen surgery assistance in this complicated case. Vitals/labs remain stable. Spoke with Dr Kristen lazo to change abx from zosyn to rocephin for klebsiella that grew from peritoneal culture. (2) Peritonitis: patient had evidence of peritonitis at time of ER presentation and thus was taken emergently to the OR. during his ex lap procedure bilious ascites was present in the peritoneal cavity. culture from the OR (peritoneal fluid) grew pansens klebsiella. d/c zosyn. change to IV rocephin 2 grams daily. This was d/w Dr Peterson. Peritonitis resolved clinically. (3) Tobacco use disorder: confirmed w/ patient that indeed he was smoking just prior to admission but declines nicoderm patch (4) SMA stenosis: seen on mesenteric u/s at time of admission by report no recurrent episodes of prandial or post-prandial abdominal pain ideally should be on asa and statin due to atherosclerotic disease consider checking lipids later in admission needs to quit smoking (5) DVT prophylaxis: lovenox 40mg daily cont incentive spirometry, ambulation, pain control d/c tele move to med/surg Subjective tele stable overnight. abd pain is improved. some belching but no nausea. NG tube draining bilious material. no flatus. overall feels better today. breathing is comfortable. admits he was smoking up until admission but declines nicoderm patch. Review of Systems Constitutional: no fever and no chills Respiratory: no cough and no wheezing Cardiovascular: no chest pain Physical Exam Constitutional: no acute distress and no altered mental status ENMT: external ear and nose normal, oropharynx normal NG tube in place draining bile Respiratory: normal respiratory effort, lungs clear to auscultation Auscultation: + diminished lung sounds (bases) Cardiovascular: Rate/Rhythm: regular rate and regular rhythm Heart Sounds: normal S1 and normal S2; no murmur Vessels: posterior tibial pulses present and dorsalis pedis pulses present; no JVD Extremities: no edema Gastrointestinal (Abdomen): Inspection/Auscultation: + abdomen distended; + abnormal bowel sounds (markedly decreased but modestly improved from 04/08 exam) Percussion/Palpation: + abdomen tender (incisional only ); no guarding, abdomen not rigid and no hepatosplenomegaly Psychiatric: A+Ox3, euthymic affect Results & Data Vital Signs (Past 12 Hours) Vital Signs Temp Pulse Pulse Pulse Resp BP BP 04/09/19 11:48 37.3 C 86 18 152/84 H 04/09/19 11:20 86 04/09/19 07:38 37.2 C 77 18 130/79 04/09/19 03:01 37.6 C H 83 18 144/85 H Pulse Ox 04/09/19 11:48 97 04/09/19 11:20 04/09/19 07:38 97 04/09/19 03:01 95 Laboratory Results Laboratory Results - last 24 hr 04/09/19 04/09/19 04/09/19 07:46 07:46 07:46 WBC 5.74 RBC 3.51 L Hgb 11.4 L Hct 34.4 L MCV 98.0 MCH 32.5 MCHC 33.1 RDW Std Deviation 49.5 H RDW Coeff of Cassidy 13.7 Plt Count 215 MPV 9.9 Immature Gran % (Auto) 0.2 Neut % (Auto) 83.8 Lymph % (Auto) 5.6 [place] % (Auto) 8.5 Eos % (Auto) 1.7 Baso % (Auto) 0.2 Immature Gran # (Auto) 0.01 Neut # (Auto) 4.81 Lymph # (Auto) 0.32 L [place] # (Auto) 0.49 Eos # (Auto) 0.10 Baso # (Auto) 0.01 PT 10.4 INR 1.0 Sodium 136 Potassium 4.2 Chloride 106 Carbon Dioxide 26 Anion Gap 4.0 BUN 14 Creatinine 0.89 Est Cr Clr Drug Dosing 92.5 Est GFR ( Amer) 109.2 Est GFR (Non-Af Amer) 94.3 BUN/Creatinine Ratio 15.8 Glucose 84 Calcium 8.6 Magnesium 2.0 Total Bilirubin 0.8 AST 13 L ALT 15 Alkaline Phosphatase 54 Total Protein 5.7 L Albumin 2.2 L Globulin 3.5 Albumin/Globulin Ratio 0.6 L Diagnostic Findings peritoneal fluid cx - pansensitive klebsiella PG Care Time/CCT Total # of Minutes Spent Total Time Spent with Patient: Total time spent is greater than 50% in coordination of care (as documented) at patient's floor/unit and/or counseling patient:
[2019-04-09] MEDS: cefTRIAXone SODIUM 2,000 MG in DEXTROSE 5% 50 ML IV SCH (14:23)
[2019-04-10] MEDS: MoRPHine SULFATE 4 MG/ML 1 ML CARP\\VIAL IV PRN ×3 (02:54→13:14)
[2019-04-10] MEDS: NSS + 20MEQ KCL 20 MEQ/1,000 ML BAG IV SCH ×3 (03:04→18:55)
[2019-04-10] MEDS: PANTOprazole 40 MG in DEXTROSE 5% 100 ML IV SCH ×5 (03:53→23:30)
[2019-04-10 06:12] LABS: Hematocrit (blood only) 34.4 % (42-52); Hemoglobin 11.4 g/dL (14.0-18.0); Mean Corpuscular Hemoglobin 32.3 pg (25-34); Mean Corpuscular Hgb Conc 33.1 g/dL (32-36); Mean Corpuscular Volume 97.5 fL (80-100); Mean Platelet Volume 9.8 fL (7.4-10.4); Platelet Count 240 K/uL (130-400); RDW Coefficient of Variation 13.3 % (11.5-14.5); RDW Standard Deviation 47.3 fL (36.4-46.3); Red Blood Count 3.53 M/uL (4.7-6.1); White Blood Count 5.26 K/uL (4.8-10.8)
--- NOTE | 2019-04-10 06:37 | Surgery Progress Note ---
Date of Service April 10, 2019 Assessment & Plan (1) Perforated abdominal viscus: awake, alert min NG output drain- serous will ck with radiology- GG study to r/o leak- then d/c NG they may not do this on weekend cont supportive care Results & Data Vital Signs (Past 12 Hours) Vital Signs Temp Pulse Resp BP Pulse Ox 04/09/19 23:15 37.3 C 85 15 144/81 H 96 PG Care Time/CCT Total # of Minutes Spent Total Time Spent with Patient: Total time spent is greater than 50% in coordination of care (as documented) at patient's floor/unit and/or counseling patient:
[2019-04-10 06:43] LABS: BUN Creatinine Ratio 16.4 (10-20); Calcium 8.4 mg/dl (8.5-10.1); Creatinine Clr Calc Pharmacy 103.7 ml/min; Est GFR (African American) 114.7; Potassium 4.4 mmol/L (3.5-5.1)
[2019-04-10] MEDS: ENOXAPARIN INJ 40 MG/0.4 ML SYR SQ SCH (09:42)
[2019-04-10] MEDS: cefTRIAXone SODIUM 2,000 MG in DEXTROSE 5% 50 ML IV SCH (14:38)
[2019-04-11] MEDS: NSS + 20MEQ KCL 20 MEQ/1,000 ML BAG IV SCH ×3 (02:07→18:34)
[2019-04-11] MEDS: PANTOprazole 40 MG in DEXTROSE 5% 100 ML IV SCH ×4 (04:38→20:05)
[2019-04-11 06:15] LABS: Creatinine Clr Calc Pharmacy 115.3 ml/min; Est GFR (African American) 119.9; Est GFR (Non-African American) 103.4
--- NOTE | 2019-04-11 06:52 | Surgery Progress Note ---
Date of Service April 11, 2019 Assessment & Plan (1) Perforated abdominal viscus: tolerating NG out- dislodged yesterday cannot perform GG study on weekend will give ice/popsicles decr IV, add nicotine patch ( smoker/anxious) overall doing well Results & Data Vital Signs (Past 12 Hours) Vital Signs Temp Pulse Resp BP Pulse Ox 04/10/19 23:21 37.2 C 74 16 137/77 95 PG Care Time/CCT Total # of Minutes Spent Total Time Spent with Patient: Total time spent is greater than 50% in coordin ation of care (as documented) at patient's floor/unit and/or counseling patient:
[2019-04-11] MEDS: ENOXAPARIN INJ 40 MG/0.4 ML SYR SQ SCH (09:51)
[2019-04-11] MEDS: NICOTINE 21 MG/24 HR TDSY TD SCH (09:52)
--- NOTE | 2019-04-11 11:46 | Hospitalist Progress Note ---
Date of Service April 11, 2019 Assessment & Plan (1) Perforated abdominal viscus: S/p ex lap and repair of perforated gastrojejunal anastomosis via Tawanda patch with Dr. Peterson on 04/07. - Gastrojejunal anastomosis is present due to prior Whipple procedure for pancreatic ca. - Passing flatus and having BMs - Now on ice chips/popsicles per surgery. - Further care per surgery. - Continue ceftriaxone for Klebsiella that grew from peritoneal culture. (2) Peritonitis: Patient had evidence of peritonitis at time of ER presentation and thus was taken emergently to the OR. During his ex lap procedure bilious ascites was present in the peritoneal cavity. - Culture from the OR (peritoneal fluid) grew vaughn-sensitive Klebsiella. 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 By report no recurrent episodes of prandial or post-prandial abdominal pain. - Ideally should be on asa and statin due to atherosclerotic disease - Needs to quit smoking (4) Tobacco use disorder: Confirmed w/ patient that indeed he was smoking just prior to admission but declines nicoderm patch. (5) DVT prophylaxis: Lovenox 40mg SQ daily Subjective No complaints today. Has been up and walking around. No fevers. Having BMs. Reports no fevers/chills, chest pain, shortness of breath, abdominal pain, nausea, or vomiting. Physical Exam Constitutional: WD/WN, vitals as above Eyes: EOM intact bilaterally; no conjunctival abnormality ENMT: external ear and nose normal, oropharynx normal Neck: trachea midline, no thyromegaly normal visual inspection Respiratory: normal respiratory effort, lungs clear to auscultation no respiratory distress Cardiovascular: RRR, no murmur, no edema Gastrointestinal (Abdomen): Inspection/Auscultation: abdomen normal to inspection, normal bowel sounds and + abdominal surgical drain present (Serous fluid draining); abdomen not distended Percussion/Palpation: abdomen soft; abdomen nontender, no guarding and abdomen not rigid Musculoskeletal: no cyanosis or clubbing, extremities motor strength 5/5 Skin: no rashes, warm and dry Neurologic: moves all extremities and awake Psychiatric: Orientation: alert, oriented to person and cooperative Results & Data Vital Signs (Past 12 Hours) Vital Signs Temp Pulse Resp BP Pulse Ox 04/11/19 08:00 36.9 C 75 18 146/84 H 96 PG Care Time/CCT Total # of Minutes Spent Total Time Spent with Patient: Total time spent is greater than 50% in coordination of care (as documented) at patient's floor/unit and/or counseling patient:
[2019-04-11] MEDS: cefTRIAXone SODIUM 2,000 MG in DEXTROSE 5% 50 ML IV SCH (13:55)
[2019-04-11] MEDS: ACETAMINOPHEN 65 ML IV PRN (16:16)
[2019-04-12] MEDS: ACETAMINOPHEN 65 ML IV PRN ×3 (01:19→21:53)
[2019-04-12] MEDS: PANTOprazole 40 MG in DEXTROSE 5% 100 ML IV SCH ×4 (01:41→16:27)
[2019-04-12 06:24] LABS: Hematocrit (blood only) 33.1 % (42-52); Hemoglobin 11.3 g/dL (14.0-18.0); Mean Corpuscular Hemoglobin 32.3 pg (25-34); Mean Corpuscular Hgb Conc 34.1 g/dL (32-36); Mean Corpuscular Volume 94.6 fL (80-100); Mean Platelet Volume 9.8 fL (7.4-10.4); Platelet Count 269 K/uL (130-400); RDW Coefficient of Variation 12.8 % (11.5-14.5); RDW Standard Deviation 44.6 fL (36.4-46.3); White Blood Count 5.61 K/uL (4.8-10.8)
[2019-04-12] MEDS: NSS + 20MEQ KCL 20 MEQ/1,000 ML BAG IV SCH ×2 (06:41→19:33)
[2019-04-12 07:04] LABS: BUN Creatinine Ratio 13.4 (10-20); Calcium 8.4 mg/dl (8.5-10.1); Creatinine Clr Calc Pharmacy 120.4 ml/min; Est GFR (Non-African American) 105.3; Magnesium 1.7 mg/dl (1.8-2.4); Phosphorus 2.9 mg/dl (2.5-4.9); Potassium 3.7 mmol/L (3.5-5.1)
--- NOTE | 2019-04-12 08:15 | Surgery Progress Note ---
Date of Service April 12, 2019 Assessment & Plan (1) Perforated abdominal viscus: Doing well postoperatively. We will get Gastrografin contrast study to assure that there is no leak If none is seen can then liberalize clear liquids and then advance Subjective Postoperative day #5, status post repair of perforated gastrojejunal anastomosis Doing well Tolerated tanvir Has abdominal soreness but more related to his incision Moving bowels and passing flatus NG tube has had 0 to 20 cc of serosanguineous drainage per shift Physical Exam Gastrointestinal (Abdomen): Inspection/Auscultation: normal bowel sounds and + abdominal surgical incision (Clean, dry and intact) Percussion/Palpation: + abdomen tender (Incisional only) and abdomen soft Results & Data Vital Signs (Past 12 Hours) Vital Signs Temp Pulse Resp BP Pulse Ox Pulse Ox 04/12/19 07:28 36.4 C L 75 16 157/84 H 95 04/11/19 23:30 92 04/11/19 22:51 37.5 C 88 16 151/81 H 92 Laboratory Results 04/12/19 04/12/19 Range/Units 05:09 05:09 WBC 5.61 (4.8-10.8) K/uL RBC 3.50 L (4.7-6.1) M/uL Hgb 11.3 L (14.0-18.0) g/dL Hct 33.1 L (42-52) % MCV 94.6 (80-100) fL MCH 32.3 (25-34) pg MCHC 34.1 (32-36) g/dL RDW Std Deviation 44.6 (36.4-46.3) fL RDW Coeff of Cassidy 12.8 (11.5-14.5) % Plt Count 269 (130-400) K/uL MPV 9.8 (7.4-10.4) fL Sodium 139 (136-145) mmol/L Potassium 3.7 D (3.5-5.1) mmol/L Chloride 106 (98-107) mmol/L Carbon Dioxide 26 (21-32) mmol/L Anion Gap 7.0 (3-11) BUN 9 (7-18) mg/dl Creatinine 0.68 (0.6-1.4) mg/dl Est Cr Clr Drug Dosing 120.4 ml/min Est GFR ( Amer) 122.0 Est GFR (Non-Af Amer) 105.3 BUN/Creatinine Ratio 13.4 (10-20) Glucose 96 (70-99) mg/dl Calcium 8.4 L (8.5-10.1) mg/dl Phosphorus 2.9 (2.5-4.9) mg/dl Magnesium 1.7 L (1.8-2.4) mg/dl
[2019-04-12] MEDS: ENOXAPARIN INJ 40 MG/0.4 ML SYR SQ SCH (09:30)
[2019-04-12] MEDS: NICOTINE 21 MG/24 HR TDSY TD SCH (09:30)
[2019-04-12] MEDS ORDERED: MAGNESIUM SULFATE / D5W 1 GM/100 ML BAG IV ONE (10:34)
[2019-04-12] MEDS: cefTRIAXone SODIUM 2,000 MG in DEXTROSE 5% 50 ML IV SCH (13:16)
--- NOTE | 2019-04-12 14:08 | Fluoroscopy Report ---
[place] upper GI series wo air CLINICAL HISTORY: History of Whipple surgery with ruptured gastric ulcer.History of repair of gastroj ejunostomy. COMPARISON STUDY: None FLUOROSCOPY TIME: 1.3 minutes. NUMBER OF FLUOROSCOPIC IMAGES: 15 FINDINGS: The patient was administered Gastrografin. The gastrojejunostomy appears patent. No extrava sation was visualized. There was retrograde filling of the afferent loop with visualization of the bi liary tree. There was no obstruction to the efferent contrast flow. IMPRESSION: The gastrojejunostomy appears patent. No extravasation was visualized. ACT 112: Negative or not required by law. Electronically signed by: Armando Perkins M.D. 04/12/2019 2:07 PM
--- NOTE | 2019-04-12 16:04 | Hospitalist Progress Note ---
Date of Service April 12, 2019 Assessment & Plan (1) Perforated abdominal viscus: S/p ex lap and repair of perforated gastrojejunal anastomosis via Tawanda patch with Dr. Peterson on 04/07. - Gastrojejunal anastomosis is present due to prior Whipple procedure for pancreatic ca. - Passing flatus and having BMs, now tolerating clear liquids after having a normal Gastrograffin study without extravasation on 04/12/18 -adv diet as tolerated-defer to Surgery - Further care per surgery. - Continue ceftriaxone for Klebsiella that grew from peritoneal culture -continue tylenol as needed for pain control SOPHIA drain still in place -can convert PPI drip to IV bid push -continue maintenance IVFs for now (2) Peritonitis: Patient had evidence of peritonitis at time of ER presentation and thus was taken emergently to the OR. During his ex lap procedure bilious ascites was present in the peritoneal cavity. - Culture from the OR (peritoneal fluid) grew vaughn-sensitive Klebsiella. 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 By report no recurrent episodes of prandial or post-prandial abdominal pain. - Ideally should be on asa and statin due to atherosclerotic disease-will discuss at time of discharge once taking po reliably -f/u with Vascular Surgery as outpt - Needs to quit smoking-counseled on this (4) Tobacco use disorder: Confirmed w/ patient that indeed he was smoking just prior to admission but declines nicoderm patch. -counseled on cessation (5) Hypomagnesemia: due to poor po intake replace with IV Mag -check BMP, Mag in AM (6) DVT prophylaxis: Lovenox 40mg SQ daily Dispo-remain hospitalized, possible dc in the next 1-2 days after diet advanced if continues to do well Subjective Pt has minimal incision site pain. No nausea or vomiting. He is passing liquid stool since getting the gastrograffin contrast this AM and feel sbetter since starting on a clears diet. No chest pain or SOB. Review of Systems Review of Systems: All systems reviewed & are unremarkable except as noted in HPI & below Physical Exam Constitutional: + thin; no acute distress Eyes: + anicteric sclerae Neck: trachea midline, no thyromegaly Respiratory: normal respiratory effort; no labored breathing Auscultation: + diminished lung sounds (throughout) Cardiovascular: RRR, no murmur, no edema Chest (Breasts): Chest: normal inspection of chest Gastrointestinal (Abdomen): Inspection/Auscultation: + abdomen abnormal to inspection (dressings in place over midline,SOPHIA drain in place with scant serosang fluid) Percussion/Palpation: + abdomen tender (minimal over incision) and abdomen soft; no guarding Musculoskeletal: Extremities: extremities normal to inspection; no cyanosis and no clubbing Skin: no rashes, warm and dry Neurologic: moves all extremities and awake; no focal motor deficits Psychiatric: A+Ox3, euthymic affect Lymphatic: no lymphedema Results & Data Vital Signs (Past 12 Hours) Vital Signs Temp Pulse Resp BP Pulse Ox 04/12/19 15:08 36.8 C 65 18 151/80 H 97 04/12/19 07:28 36.4 C L 75 16 157/84 H 95 Laboratory Results 04/12/19 04/12/19 Range/Units 05:09 05:09 WBC 5.61 (4.8-10.8) K/uL RBC 3.50 L (4.7-6.1) M/uL Hgb 11.3 L (14.0-18.0) g/dL Hct 33.1 L (42-52) % MCV 94.6 (80-100) fL MCH 32.3 (25-34) pg MCHC 34.1 (32-36) g/dL RDW Std Deviation 44.6 (36.4-46.3) fL RDW Coeff of Cassidy 12.8 (11.5-14.5) % Plt Count 269 (130-400) K/uL MPV 9.8 (7.4-10.4) fL Sodium 139 (136-145) mmol/L Potassium 3.7 D (3.5-5.1) mmol/L Chloride 106 (98-107) mmol/L Carbon Dioxide 26 (21-32) mmol/L Anion Gap 7.0 (3-11) BUN 9 (7-18) mg/dl Creatinine 0.68 (0.6-1.4) mg/dl Est Cr Clr Drug Dosing 120.4 ml/min Est GFR ( Amer) 122.0 Est GFR (Non-Af Amer) 105.3 BUN/Creatinine Ratio 13.4 (10-20) Glucose 96 (70-99) mg/dl Calcium 8.4 L (8.5-10.1) mg/dl Phosphorus 2.9 (2.5-4.9) mg/dl Magnesium 1.7 L (1.8-2.4) mg/dl PG Care Time/CCT Total # of Minutes Spent Total Time Spent with Patient: Total time spent is greater than 50% in coordination of care (as documented) at patient's floor/unit and/or counseling patient:
[2019-04-12] MEDS: PANTOprazole 40 MG in SYRINGE 0 ML IV SCH (21:52)
[2019-04-13 06:04] LABS: Basophils # (auto) 0.03 K/uL (0-0.2); Basophils % (auto) 0.5 %; Eosinophils # (auto) 0.16 K/uL (0-0.5); Eosinophils % (auto) 2.6 %; Hematocrit (blood only) 33.4 % (42-52); Hemoglobin 11.3 g/dL (14.0-18.0); Immature Granulocytes # (auto) 0.03 K/uL (0.00-0.02); Immature Granulocytes % (auto) 0.5 %; Lymphocytes # (auto) 0.78 K/uL (1.2-3.4); Lymphocytes % (auto) 12.7 %; Mean Corpuscular Hemoglobin 31.9 pg (25-34); Mean Corpuscular Hgb Conc 33.8 g/dL (32-36); Mean Corpuscular Volume 94.4 fL (80-100); Mean Platelet Volume 9.6 fL (7.4-10.4); Monocytes # (auto) 0.81 K/uL (0.11-0.59); Monocytes % (auto) 13.2 %; Neutrophils # (auto) 4.33 K/uL (1.4-6.5); Neutrophils % (auto) 70.5 %; Platelet Count 272 K/uL (130-400); RDW Standard Deviation 44.9 fL (36.4-46.3); Red Blood Count 3.54 M/uL (4.7-6.1); White Blood Count 6.14 K/uL (4.8-10.8)
[2019-04-13 06:42] LABS: BUN Creatinine Ratio 11.3 (10-20); Calcium 8.1 mg/dl (8.5-10.1); Creatinine Clr Calc Pharmacy 112.2 ml/min; Est GFR (African American) 118.5; Est GFR (Non-African American) 102.2; Potassium 3.8 mmol/L (3.5-5.1)
--- NOTE | 2019-04-13 07:01 | Surgery Progress Note ---
Date of Service April 13, 2019 Results & Data Vital Signs (Past 12 Hours) Vital Signs Temp Pulse Resp BP Pulse Ox Pulse Ox 04/12/19 23:45 96 04/12/19 22:52 37.1 C 74 16 149/85 H 96
--- NOTE | 2019-04-13 07:05 | Surgery Progress Note ---
Date of Service April 13, 2019 Assessment & Plan (1) Perforated abdominal viscus: Postoperative day #6 status post repair of perforated gastrojejunal anastomosis Doing well Can advance to full liquid diet If tolerates consider for discharge tomorrow Can remove drain prior to discharge Subjective Postoperative day #6, status post repair perforated gastrojejunal anastomosis Tolerated clear liquid diet Results of Gastrografin study noted Ambulating Moving bowels with diarrhea Very little abdominal pain Denies nausea and vomiting SOPHIA had 10 cc of serous drainage out all day yesterday Results & Data Vital Signs (Past 12 Hours) Vital Signs Temp Pulse Resp BP Pulse Ox Pulse Ox 04/12/19 23:45 96 04/12/19 22:52 37.1 C 74 16 149/85 H 96 Laboratory Results 04/13/19 04/13/19 04/12/19 Range/Units 05:39 05:39 05:09 WBC 6.14 (4.8-10.8) K/uL RBC 3.54 L (4.7-6.1) M/uL Hgb 11.3 L (14.0-18.0) g/dL Hct 33.4 L (42-52) % MCV 94.4 (80-100) fL MCH 31.9 (25-34) pg MCHC 33.8 (32-36) g/dL RDW Std Deviation 44.9 (36.4-46.3) fL RDW Coeff of Cassidy 13.0 (11.5-14.5) % Plt Count 272 (130-400) K/uL MPV 9.6 (7.4-10.4) fL Immature Gran % (Auto) 0.5 % Neut % (Auto) 70.5 % Lymph % (Auto) 12.7 % [place] % (Auto) 13.2 % Eos % (Auto) 2.6 % Baso % (Auto) 0.5 % Immature Gran # (Auto) 0.03 H (0.00-0.02) K/uL Neut # (Auto) 4.33 (1.4-6.5) K/uL Lymph # (Auto) 0.78 L (1.2-3.4) K/uL [place] # (Auto) 0.81 H (0.11-0.59) K/uL Eos # (Auto) 0.16 (0-0.5) K/uL Baso # (Auto) 0.03 (0-0.2) K/uL Sodium 140 139 (136-145) mmol/L Potassium 3.8 3.7 D (3.5-5.1) mmol/L Chloride 111 H 106 (98-107) mmol/L Carbon Dioxide 23 26 (21-32) mmol/L Anion Gap 6.0 7.0 (3-11) BUN 8 9 (7-18) mg/dl Creatinine 0.73 0.68 (0.6-1.4) mg/dl Est Cr Clr Drug Dosing 112.2 120.4 ml/min Est GFR ( Amer) 118.5 122.0 Est GFR (Non-Af Amer) 102.2 105.3 BUN/Creatinine Ratio 11.3 13.4 (10-20) Glucose 91 96 (70-99) mg/dl Calcium 8.1 L 8.4 L (8.5-10.1) mg/dl Phosphorus 2.9 (2.5-4.9) mg/dl Magnesium 2.0 1.7 L (1.8-2.4) mg/dl
[2019-04-13] MEDS: NSS + 20MEQ KCL 20 MEQ/1,000 ML BAG IV SCH (08:12)
[2019-04-13] MEDS: ENOXAPARIN INJ 40 MG/0.4 ML SYR SQ SCH (08:16)
[2019-04-13] MEDS: PANTOprazole 40 MG in SYRINGE 0 ML IV SCH (08:17)
[2019-04-13] MEDS: NICOTINE 21 MG/24 HR TDSY TD SCH ×2 (09:49→10:41)
[2019-04-13] MEDS: cefTRIAXone SODIUM 2,000 MG in DEXTROSE 5% 50 ML IV SCH (13:44)
[2019-04-13] MEDS: AMOXICILLIN/CLAVULANATE 875 MG TAB PO SCH (18:10)
--- NOTE | 2019-04-13 19:32 | Hospitalist Progress Note ---
Date of Service April 13, 2019 Assessment & Plan (1) Perforated abdominal viscus: S/p ex lap and repair of perforated gastrojejunal anastomosis via Tawanda patch with Dr. Peterson on 04/07. - Gastrojejunal anastomosis is present due to prior Whipple procedure for pancreatic ca. - Bowel function has returned, continues to have multiple small loose stools daily, had a normal Gastrograffin study without extravasation on 04/12/18 -adv diet to full liquids today and is tolerating-defer to Surgery for further advancement - Further care per surgery -Peritoneal fluid culture growing Klebsiella, Haemophilus species not influenzae, and Prevotella - convert ceftriaxone to Augmentin which will also cover for the Prevotella (an anaerobe) and finish out 5 more days -continue tylenol as needed for pain control SOPHIA drain still in place-will likely be removed tomorrow -can convert PPI bid push to po -discontinue maintenance IVFs (2) Peritonitis: Patient had evidence of peritonitis at time of ER presentation and thus was taken emergently to the OR. During his ex lap procedure bilious ascites was present in the peritoneal cavity. 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 By report no recurrent episodes of prandial or post-prandial abdominal pain. - Ideally should be on asa and statin due to atherosclerotic disease-will discuss at time of discharge once taking po reliably -f/u with Vascular Surgery as outpt - Needs to quit smoking-counseled on this (4) Tobacco use disorder: Confirmed w/ patient that indeed he was smoking just prior to admission but declines nicoderm patch. -counseled on cessation (5) Hypomagnesemia: due to poor po intake replaced with IV Mag and now resolved -check BMP, Mag in AM (6) Insomnia: add Benadryl 50mg po hs prn (7) DVT prophylaxis: Lovenox 40mg SQ daily Dispo-remain hospitalized, possible dc to home tomorrow if tolerating advancement of diet Subjective Had full liquids today and did well. Feels a little full, but definitely no N/V. Still with 6 small loose BMs today, nonbloody. Some minimal abd pain at incision site. He has been ambulating the halls. Denies CP or SOB. No lightheadedness, no headache. he had some trouble sleeping last night and received benadryl with good effect Review of Systems Review of Systems: All systems reviewed & are unremarkable except as noted in HPI & below Physical Exam Constitutional: + thin; no acute distress Eyes: + anicteric sclerae Neck: trachea midline, no thyromegaly Respiratory: normal respiratory effort; no labored breathing Auscultation: + diminished lung sounds (throughout) Cardiovascular: RRR, no murmur, no edema Chest (Breasts): Chest: normal inspection of chest Gastrointestinal (Abdomen): Inspection/Auscultation: + abdomen abnormal to inspection (janine in place over midline,SOPHIA drain in place with scant serosang fluid) Percussion/Palpation: + abdomen tender (minimal over incision) and abdomen soft; no guarding Musculoskeletal: Extremities: extremities normal to inspection; no cyanosis and no clubbing Skin: + erythema (very mild erythema left of incision) Neurologic: moves all extremities and awake; no focal motor deficits Psychiatric: A+Ox3, euthymic affect Lymphatic: no lymphedema Results & Data Vital Signs (Past 12 Hours) Vital Signs Temp Pulse Resp BP Pulse Ox 04/13/19 15:09 37.4 C 79 18 149/82 H 98 Laboratory Results 04/13/19 04/13/19 Range/Units 05:39 05:39 WBC 6.14 (4.8-10.8) K/uL RBC 3.54 L (4.7-6.1) M/uL Hgb 11.3 L (14.0-18.0) g/dL Hct 33.4 L (42-52) % MCV 94.4 (80-100) fL MCH 31.9 (25-34) pg MCHC 33.8 (32-36) g/dL RDW Std Deviation 44.9 (36.4-46.3) fL RDW Coeff of Cassidy 13.0 (11.5-14.5) % Plt Count 272 (130-400) K/uL MPV 9.6 (7.4-10.4) fL Immature Gran % (Auto) 0.5 % Neut % (Auto) 70.5 % Lymph % (Auto) 12.7 % [place] % (Auto) 13.2 % Eos % (Auto) 2.6 % Baso % (Auto) 0.5 % Immature Gran # (Auto) 0.03 H (0.00-0.02) K/uL Neut # (Auto) 4.33 (1.4-6.5) K/uL Lymph # (Auto) 0.78 L (1.2-3.4) K/uL [place] # (Auto) 0.81 H (0.11-0.59) K/uL Eos # (Auto) 0.16 (0-0.5) K/uL Baso # (Auto) 0.03 (0-0.2) K/uL Sodium 140 (136-145) mmol/L Potassium 3.8 (3.5-5.1) mmol/L Chloride 111 H (98-107) mmol/L Carbon Dioxide 23 (21-32) mmol/L Anion Gap 6.0 (3-11) BUN 8 (7-18) mg/dl Creatinine 0.73 (0.6-1.4) mg/dl Est Cr Clr Drug Dosing 112.2 ml/min Est GFR ( Amer) 118.5 Est GFR (Non-Af Amer) 102.2 BUN/Creatinine Ratio 11.3 (10-20) Glucose 91 (70-99) mg/dl Calcium 8.1 L (8.5-10.1) mg/dl Magnesium 2.0 (1.8-2.4) mg/dl PG Care Time/CCT Total # of Minutes Spent Total Time Spent with Patient: Total time spent is greater than 50% in coordination of care (as documented) at patient's floor/unit and/or counseling patient:
[2019-04-13] MEDS: ACETAMINOPHEN 65 ML IV PRN (21:46)
[2019-04-13] MEDS: PANTOprazole 40 MG TAB PO SCH (21:46)
[2019-04-14] MEDS ORDERED: ACETAMINOPHEN 1,000 MG/100 ML VIAL IV PRN (02:04)
[2019-04-14 05:59] LABS: BUN Creatinine Ratio 8.8 (10-20); Calcium 8.3 mg/dl (8.5-10.1); Creatinine Clr Calc Pharmacy 118.7 ml/min; Est GFR (African American) 121.3; Est GFR (Non-African American) 104.6; Magnesium 1.8 mg/dl (1.8-2.4); Potassium 3.6 mmol/L (3.5-5.1)
--- NOTE | 2019-04-14 06:39 | Surgery Progress Note ---
Date of Service April 14, 2019 Assessment & Plan (1) Perforated abdominal viscus: Postoperative day #7 status post repair of perforated gastrojejunal anastomosis Doing well Can discharge to home from surgical standpoint Discussed diet with him Will need to return for removal of janine next week Subjective Postoperative day #7, status post closure of perforated gastrojejunal anastomosis Doing well Tolerated full liquid diet Moving bowels No nausea or vomiting Very little pain Physical Exam Gastrointestinal (Abdomen): Inspection/Auscultation: + abdominal surgical incision (Clean, dry and intact); abdomen not distended Percussion/Palpation: abdomen soft; abdomen nontender Results & Data Vital Signs (Past 12 Hours) Vital Signs Temp Pulse Resp BP Pulse Ox Pulse Ox 04/13/19 23:45 97 04/13/19 22:53 36.9 C 67 16 147/81 H 97 Laboratory Results 04/14/19 04/13/19 Range/Units 04:52 05:39 Sodium 141 140 (136-145) mmol/L Potassium 3.6 3.8 (3.5-5.1) mmol/L Chloride 110 H 111 H (98-107) mmol/L Carbon Dioxide 26 23 (21-32) mmol/L Anion Gap 5.0 6.0 (3-11) BUN 6 L 8 (7-18) mg/dl Creatinine 0.69 0.73 (0.6-1.4) mg/dl Est Cr Clr Drug Dosing 118.7 112.2 ml/min Est GFR ( Amer) 121.3 118.5 Est GFR (Non-Af Amer) 104.6 102.2 BUN/Creatinine Ratio 8.8 L 11.3 (10-20) Glucose 89 91 (70-99) mg/dl Calcium 8.3 L 8.1 L (8.5-10.1) mg/dl Magnesium 1.8 2.0 (1.8-2.4) mg/dl
[2019-04-14] MEDS: AMOXICILLIN/CLAVULANATE 875 MG TAB PO SCH (07:02)
[2019-04-14] MEDS: PANTOprazole 40 MG TAB PO SCH (09:06)
[2019-04-14] MEDS: ENOXAPARIN INJ 40 MG/0.4 ML SYR SQ SCH (09:06)
[2019-04-14] MEDS: NICOTINE 21 MG/24 HR TDSY TD SCH (09:07)
--- NOTE | 2019-04-14 13:39 | Discharge Summary ---
Date of Service April 14, 2019 Admission HPI Per Admitting Provider The patient is a 58-year-old male with a past medical history including pancreatic cancer, daily tobacco use, empyema and melanoma, who reports to the emergency department with acute onset of severe abdominal pain. During his initial evaluation by the ED, they note his entire abdomen being involved with pain radiating to shoulders. At the time of my evaluation, the patient describes the pain is in the epigastric area and radiating to his groin bilaterally. His pain is severe enough that he appears to be trying to crawl out of bed as he arrives in pain. Initial work-up in the ED included a CT angiography of the chest with dissection protocol, which showed mild emphysematous change, normal thoracic aorta and clear lungs. 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 The patient has denied any change in bowel or bladder habits. Then, because the intensity of his pain, he underwent mesenteric Dopplers to assess for mesenteric ischemia, and this test was normal. The patient's pain was able to ultimately be relieved, and he will be admitted to the medical surgical floor for observation and be assessed by GI and general surgery. Discharge Exam Constitutional + thin; no acute distress Eyes + anicteric sclerae Neck trachea midline, no thyromegaly Respiratory normal respiratory effort; no labored breathing Auscultation: + diminished lung sounds (throughout) Cardiovascular RRR, no murmur, no edema Chest (Breasts) Chest: normal inspection of chest Gastrointestinal (Abdomen) Inspection/Auscultation: + abdomen abnormal to inspection (janine in place over midline,SOPHIA drain in place with scant serosang fluid) Percussion/Palpation: + abdomen tender (minimal over incision) and abdomen soft; no guarding Musculoskeletal Extremities: extremities normal to inspection; no cyanosis and no clubbing Skin no rashes, warm and dry + erythema (very mild erythema left of incision) Neurologic moves all extremities and awake; no focal motor deficits Psychiatric A+Ox3, euthymic affect Lymphatic no lymphedema Discharge Data Allergies Allergy/AdvReac Type Severity Reaction Status Date / Time No Known Allergies Allergy Mild Unverified 04/06/19 21:07 Consultations 04/06/19 21:16 ED Decision to Admit Stat 04/07/19 00:54 Consult Case Management - Discharge Planning Routine 04/07/19 07:41 Consult General Surgery Routine Procedures Performed Operation Date: 04/07/19 07:00 Actual Procedures p Exploratory Laparotomy, repair of perforated gastrojeunostomy anatomosis(Not Applicable) - Hipolito Peterson MD Ordered Studies 04/06/19 17:05 CT abd pelvis IV con only Stat CT angio chest dissec wo/w con Stat 04/06/19 22:18 US duplex mesenteric Urgent Hospital Course (1) Perforated abdominal viscus: S/p ex lap and repair of perforated gastrojejunal anastomosis via Tawanda patch with Dr. Peterson on 04/07. - Gastrojejunal anastomosis is present due to prior Whipple procedure for pancreatic ca. - Bowel function has returned, continues to have multiple small loose stools daily, had a normal Gastrograffin study without extravasation on 04/12/18 -adv diet to full liquids today and is tolerating-defer to Surgery for further advancement - Further care per surgery -Peritoneal fluid culture growing Klebsiella, Haemophilus species not influenzae, and Prevotella - convert ceftriaxone to Augmentin which will also cover for the Prevotella (an anaerobe) and finish out 5 more days -continue tylenol as needed for pain control SOPHIA drain still in place-will likely be removed tomorrow -can convert PPI bid push to po -discontinue maintenance IVFs (2) Peritonitis: Patient had evidence of peritonitis at time of ER presentation and thus was taken emergently to the OR. During his ex lap procedure bilious ascites was present in the peritoneal cavity. 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 By report no recurrent episodes of prandial or post-prandial abdominal pain. - Ideally should be on asa and statin due to atherosclerotic disease-will discuss at time of discharge once taking po reliably -f/u with Vascular Surgery as outpt - Needs to quit smoking-counseled on this (4) Tobacco use disorder: Confirmed w/ patient that indeed he was smoking just prior to admission but declines nicoderm patch. -counseled on cessation (5) Hypomagnesemia: due to poor po intake replaced with IV Mag and now resolved -check BMP, Mag in AM (6) Insomnia: add Benadryl 50mg po hs prn (7) DVT prophylaxis: Lovenox 40mg SQ daily Dispo-remain hospitalized, possible dc to home tomorrow if tolerating adv ancement of diet Discharge Plan Discharge Items Patient Disposition: Home - Self-Care Reason For Visit: INTRACTABLE ABDOMINAL PAIN, ENTERITIS, ASCITES Discharge Diagnosis: Perforated ulcer of the gastroduodenostomy Condition on Discharge: Good Activity: Per Instructions section Non-emergency contact: Primary Care Provider and Surgeon Call non-emergency contact if: you have any medication questions, your pain is not controlled, your pain is unusual for you, your pain is concerning for you, you have a fever, your temperature is above 101, your wound has increased redness, your wound has increased drainage and your wound pain has increased Follow-up/Referrals: Tyesha Jones MD [Primary Care Provider] - 04/20/19 11:30 am (Please, follow up at [facility] with Dr. Jones on FridayApril 20 at 11:30 am. *If you need to change this appointment, call the office at [phone].) Hipolito Peterson MD [Physician] - (Please follow up within 1 week.) Mikael Hardin MD [Physician] - (Please, follow up at [facility] Surgery Office with Dr. Hardin regarding narrowing of your superior mesenteric artery. *A nurse from his office is supposed to call you with the appointment details. The office is located at [address] [place] [address] in [place], next to [facility]. If you have any questions, call the office at [phone].) Diet: Regular Diet Comment: soft foods, bland diet Addtl Attending Provider Instructions: Post-Surgical ~Discharge Instructions Activity Recommendations: - lifting limitation: (10 pounds for 6 weeks), - exercise/sex/sports limit: (nonstrenuous until cleared by surgeon), - driving or machine use limit: (none for 1 week), - Shower/bathe limit: (may shower) Diet: - Low fiber diet - Would avoid spicy foods, alcohol, acidic foods as this causes increased acid production in your stomach. SPECIAL CARE INSTRUCTIONS: - May shower. Let water run over area and pat dry. Do not submerge incision underwater for 2 weeks (no bathing, swimming, or hot tubs) - Call the surgeon's office with any questions or concerns - - (ex. temperature higher than 101 degrees F, excessive bleeding or pain). MEDICATIONS: - Resume previous medications unless instructed otherwise by your surgeon. - Percocet 1 every 4 hours, as needed for pain - You will need to take Protonix (antacid) twice a day for at least a few months - Avoid NSAIDs (Aleve, Ibuprofen, Motrin) -take Augmentin x 5 more days, twice daily RECOMMENDATIONS: - HIGHLY recommend quitting smoking FOLLOW UP VISIT: - If not already scheduled, please call the office to schedule a one week follow-up appointment. Office number Pending Studies at Discharge: No Stand-Alone Forms: Call Back Authorization, [facility], Smoking Cessation Medications and DC Order Prescriptions: New nicotine [Nicoderm CQ] 21 mg/24 hr Patch 24 Hour 21 mg transdermal QAM Qty: 14 RF: 0 amoxicillin-pot clavulanate [Augmentin] 875-125 mg Tablet 1 tab PO BID Qty: 10 RF: 0 pantoprazole 40 mg Tablet,Delayed Release (Dr/Ec) 40 mg PO BID Qty: 60 RF: 0 Continued acetaminophen [Tylenol] 325 mg Tablet 650 mg PO QID PRN (Reason: Pain) RF: 0 Multivitamin Powder Pkg 1 packet PO DAILY RF: 0 Discontinued ibuprofen [Advil] 200 mg Tablet 400 mg PO Q6H PRN (Reason: Pain) RF: 0 Discharge Orders: Discharge Order (Routine); Ordered 04/14/19 Ordered By: Chela Reyes Admission Data Admit Date/Time: 04/07/19 12:45 Attending Provider: Chela Reyes Admit Provider: Shreyas Lemos Primary Care Provider: Tyesha Jones Other Providers: Shreyas Lemos ; Clint Johnson ; Hipolito Peterson
--- NOTE | 2019-04-15 11:04 | Coding Query ---
CODING QUERY To promote full compliance with coding requirements relating to patient care, provider participation is requested in all cases of film booker uncertainty. Please assist us with the question(s) below: Coding Question(s): There is documentation of Perforated Gastrojejunal Anastomosis with documentation that the Gastrojejunal Anastomosis is present due to prior Whipple procedure for pancreatic cancer. Please specify below, in your clinical opinion. ( ) this is likely a postoperative complication ( x ) this is Not likely a postoperative complication ( ) Other: Please Specify Physician's Response(s): Thank you Annetta Bryan Principal Diagnosis: "that condition established after study, to be chiefly responsible for occasioning the admission of the patient to the hospital for care." Co-Existing Principal Diagnosis: "when two or more diagnoses equally meet the criteria for principal diagnosis as determined by the circumstances of admission, diagnostic work up, and/or therapy provided, and the Alphabetic Index, Tabular List, or another coding guideline does not provide sequencing direction, any one of the diagnoses may be sequenced first." "When the physician has documented what appears to be a current diagnosis in the body of the record, but has not included the diagnosis in the final diagnostic statement, the physician should be asked whether the diagnosis should be added." (Source Coding Clinic 2 QTR90. p3-4) ARIEL
== END 2019-04-14 14:53 | disposition home or self-care (01) | DRG 329 ==
LOC: ED 17:00 → 3W 17:00 → SUATTDRO 04-07 00:09 → 3W 04-07 00:33 → SUATTDRO 04-07 12:45 → 2S 04-07 12:46 → 3N 04-09 12:36

== ENCOUNTER 2019-06-18 17:02 | Inpatient (IN) ==
[2019-06-18] MEDS ORDERED: DiphenhydrAMINE 12.5 MG in SYRINGE 0 ML IV STA (17:30)
[2019-06-18] MEDS ORDERED: ONDANSETRON INJ 2 MG/ML 2 ML VIAL IV STA (17:30)
[2019-06-18] MEDS ORDERED: SODIUM CHLORIDE 0.9% 1000ML 1,000 ML IV STA (17:32)
[2019-06-18] MEDS ORDERED: SODIUM CHLORIDE 0.9% 1000ML 1,000 ML IV ONE (17:32)
[2019-06-18] MEDS ORDERED: DiphenhydrAMINE HCL 50 MG/ML VIAL ONE (17:43)
[2019-06-18] MEDS ORDERED: MoRPHine SULFATE 4 MG/ML 1 ML CARP\\VIAL ONE ×2 (17:44→19:16)
[2019-06-18] MEDS: MoRPHine SULFATE 10 MG/ML CARP/VIAL IV PRN ×3 (17:50→21:38)
[2019-06-18 17:59] LABS: Basophils # (auto) 0.03 K/uL (0-0.2); Basophils % (auto) 0.2 %; Eosinophils # (auto) 0.04 K/uL (0-0.5); Eosinophils % (auto) 0.3 %; Hematocrit (blood only) 47.4 % (42-52); Immature Granulocytes # (auto) 0.05 K/uL (0.00-0.02); Immature Granulocytes % (auto) 0.4 %; Lymphocytes # (auto) 1.27 K/uL (1.2-3.4); Lymphocytes % (auto) 9.3 %; Mean Corpuscular Hemoglobin 32.7 pg (25-34); Mean Corpuscular Hgb Conc 35.9 g/dL (32-36); Mean Corpuscular Volume 91.2 fL (80-100); Mean Platelet Volume 9.9 fL (7.4-10.4); Monocytes # (auto) 0.89 K/uL (0.11-0.59); Monocytes % (auto) 6.5 %; Neutrophils # (auto) 11.35 K/uL (1.4-6.5); Neutrophils % (auto) 83.3 %; Platelet Count 382 K/uL (130-400); RDW Coefficient of Variation 13.1 % (11.5-14.5); RDW Standard Deviation 43.6 fL (36.4-46.3); White Blood Count 13.63 K/uL (4.8-10.8)
[2019-06-18 18:11] LABS: Albumin Level 4.8 gm/dl (3.4-5.0); BUN Creatinine Ratio 14.4 (10-20); Calcium 10.6 mg/dl (8.5-10.1); Creatinine Clr Calc Pharmacy 59.2 ml/min; Est GFR (African American) 67.3; Est GFR (Non-African American) 58.1; Potassium 4.2 mmol/L (3.5-5.1)
[2019-06-18 18:14] LABS: Albumin Globulin Ratio 1.2 (0.9-2); Bilirubin,Total 0.7 mg/dl (0.2-1); Total Protein 8.8 gm/dl (6.4-8.2)
--- NOTE | 2019-06-18 18:16 | Emergency Department Note ---
ED Provider Note NAME: AIDAN JORDAN AGE: 59 SEX: M ARRIVES VIA: Walk-In INFORMANT: [Patient] ED PROVIDER(S): Bereket Stevens MD CHIEF COMPLAINT: Right upper quadrant abdominal pain IMPRESSION: Bowel obstruction PLAN: Disposition: Admitted Condition: [Good] MEDICAL DECISION MAKING: Patient is a 59-year-old male with multiple abdominal surgeries that presented with acute onset of upper abdominal pain. The patient underwent emergent imaging and blood work. He had a slight leukocytosis on CBC. The patient was hydrated. He was treated with Zofran, morphine, and Benadryl. He felt much better. CT imaging revealed a bowel obstruction. I did discuss the case with Dr. Harper of general surgery. He recommended usual treatment with NG tube and admission to internal medicine with surgical consultation. I did discuss the case with Dr. Shreyas Lemos. [facility] Triage Nursing notes reviewed and agree them. [Additional history obtained from] patient significant other Vital Signs: reviewed and remarkable for [no significant abnormalities] Differential diagnosis: obstruction, mesenteric ischemia, aortic pathology, Appendicitis, testicular torsion, infections, diverticulitis, UTI, inflammatory bowel disease, renal colic, PUD, pancreatitis, biliary pathology, hernia, volvulus, constipation, as well as other pathologies. ER treatment provided: IV morphine IV Benadryl IV Zofran Normal saline hydration Diagnostics interpreted by me: Cardiac Monitoring: Order: The patient was placed on continuous cardiac monitoring and observed. It revealed a normal sinus rhythm at 95 bpm without ectopy or evidence of dysrhythmia. Laboratory studies: [See below] mild leukocytosis on CBC. Chemistry panel was unremarkable. LFTs and lipase negative Imaging studies: CT scan of the abdomen pelvis was consistent with a mid small bowel obstruction likely secondary to adhesions. Consultation(s): Dr. Harper general surgery Dr. Shreyas Lemos internal medicine HPI: The patient is a 59 year old male who presents to the Emergency Room with complaints of sudden onset of right upper quadrant abdominal pain. This started 2 hours ago and is worsening. The patient also notes the following associated symptoms, feeling sweaty and belching. The patient has found no relieving factors. Current pain is rated as 10/10. The patient has a history of a Whipple procedure for pancreatic tumor, perforated bowel, and empyema. Pt denies LOC, headache, fevers, chills, visual changes, neck pain, chest pain, breathing difficulties, nausea, vomiting, back pain, melena, hematochezia, urinary symptoms, numbness, weakness, lymphadenopathy, rash, or other complaints. ROS: See above HPI for pertinent positives & negatives. A total of [10] systems reviewed and were otherwise negative. PAST MEDICAL HISTORY:[See Below], bowel perforation PAST SURGICAL HISTORY:[See Below]Whipple procedure FAMILY HISTORY:[See Below] SOCIAL HISTORY:[See Below] HOME MEDICATIONS:Reviewed in EMR. ALLERGIES:No known drug allergies. VITALS:[See Below] PHYSICAL EXAMINATION: GENERAL: Awake, alert, very uncomfortable-appearing, in moderate distress HENT: Normocephalic, atraumatic. Oropharynx unremarkable. EYES: Normal conjunctiva. Sclera non-icteric. NECK: Inspection normal. Non-tender. Supple. No nuchal rigidity. FROM. No masses. RESPIRATORY: Clear to auscultation. No wheezes. No rales. Normal respiratory effort. CARDIAC: Tachycardic rate. Normal rhythm. No murmurs. No rubs. Extremities warm and well perfused. Pulses equal. No JVD. GI: Soft, mild-distended. Severe right upper quadrant, moderate epigastric, and minimal lower quadrant tenderness to palpation. Rebound and guarding present.. No masses. RECTAL: Deferred. MUSCULOSKELETAL: Atraumatic. Chest examination reveals no tenderness. The back is symmetrical on inspection without obvious abnormality. There is no CVA tenderness to palpation. No joint edema. LOWER EXTREMITIES: Calves are equal size bilaterally and non-tender. No edema. No discoloration. NEURO: Normal sensorium. No sensory or motor deficits noted. SKIN: No rash or jaundice noted. 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 GERD (gastroesophageal reflux disease) Melanoma BACK/SHOULDER Pleural effusion on right 2018, s/p thoracentesis Surgical History (Updated 06/18/19 @ 08:30 by Destin Leal) H/O resection of pancreas Whipple 05/2016 History of bowel resection FOR PERFORATION. 03/2019 History of chest tube placement History of cholecystectomy with Whipple History of colonoscopy History of esophagogastroduodenoscopy (EGD) History of thoracentesis Wrist fracture, left Social History Preferred Language: Bengali Communication Ability: Effective Weapons And Tactics Instructor Required: No Beliefs That Will Affect Care: None marital status: Current Living Situation: Significant Other Other Information That Helps Us Care for You: No Feels Safe at Home: Yes Safety Concerns: Feels Safe At This Time Smoking Status: Current some day smoker Tobacco Type: cigarettes ; Cigarettes Per Day: 5 ; Second Hand Exposure: Yes (SO smokes) ; Hx Alcohol Use: Yes Alcohol type: hard liquor Hx Substance Use: No Results & Data Vital Signs Vital Signs - 24 hr 06/18/19 17:10 06/18/19 17:51 06/18/19 18:00 Temperature 36.7 C Temperature Source Oral Pulse Rate 120 H 94 H 94 H Pulse Rate [Apical] Pulse Rate from SpO2 Sensor 94 H 93 H Respiratory Rate 20 26 H 28 H Respiratory Effort / Characteristics Non-Labored Spontaneous Respiratory Depth Normal Respiratory Pattern Regular Blood Pressure 121/77 134/96 Blood Pressure [Left Arm] Blood Pressure Mean 91 105 Blood Pressure Mean [Left Arm] Blood Pressure Position Sitting Pulse Oximetry 100 100 99 Oxygen Delivery Method Room Air Room Air Sepsis Recent Fever Within 48 Hours No Sepsis Action Taken by Nursing No Action Required 06/18/19 18:01 06/18/19 18:10 06/18/19 18:38 Temperature Temperature Source Pulse Rate 89 99 H 105 H Pulse Rate [Apical] Pulse Rate from SpO2 Sensor 96 H 98 H Respiratory Rate 23 23 20 Respiratory Effort / Characteristics Respiratory Depth Respiratory Pattern Blood Pressure Blood Pressure [Left Arm] Blood Pressure Mean Blood Pressure Mean [Left Arm] Blood Pressure Position Pulse Oximetry 99 100 Oxygen Delivery Method Sepsis Recent Fever Within 48 Hours Sepsis Action Taken by Nursing 06/18/19 18:39 06/18/19 18:40 06/18/19 18:50 Temperature Temperature Source Pulse Rate 98 H 98 H 94 H Pulse Rate [Apical] Pulse Rate from SpO2 Sensor 100 H 99 H 94 H Respiratory Rate 22 20 23 Respiratory Effort / Characteristics Respiratory Depth Respiratory Pattern Blood Pressure 122/87 Blood Pressure [Left Arm] Blood Pressure Mean 90 Blood Pressure Mean [Left Arm] Blood Pressure Position Pulse Oximetry 99 99 99 Oxygen Delivery Method Sepsis Recent Fever Within 48 Hours Sepsis Action Taken by Nursing 06/18/19 19:00 06/18/19 19:01 06/18/19 19:10 Temperature Temperature Source Pulse Rate 90 91 H 96 H Pulse Rate [Apical] Pulse Rate from SpO2 Sensor 90 86 96 H Respiratory Rate 24 23 20 Respiratory Effort / Characteristics Respiratory Depth Respiratory Pattern Blood Pressure 136/91 Blood Pressure [Left Arm] Blood Pressure Mean 109 Blood Pressure Mean [Left Arm] Blood Pressure Position Pulse Oximetry 94 94 95 Oxygen Delivery Method Sepsis Recent Fever Within 48 Hours Sepsis Action Taken by Nursing 06/18/19 19:20 06/18/19 19:33 Temperature Temperature Source Pulse Rate 99 H Pulse Rate [Apical] 102 H Pulse Rate from SpO2 Sensor 99 H Respiratory Rate 22 18 Respiratory Effort / Characteristics Non-Labored Spontaneous Respiratory Depth Normal Respiratory Pattern Blood Pressure Blood Pressure [Left Arm] 121/97 Blood Pressure Mean Blood Pressure Mean [Left Arm] 105 Blood Pressure Position Pulse Oximetry 98 98 Oxygen Delivery Method Room Air Sepsis Recent Fever Within 48 Hours Sepsis Action Taken by Nursing Laboratory Data Result diagrams: 06/18/19 17:41 06/18/19 17:41 Lab Results 06/18/19 06/18/19 Range/Units 17:41 17:41 WBC 13.63 H (4.8-10.8) K/uL RBC 5.20 (4.7-6.1) M/uL Hgb 17.0 D (14.0-18.0) g/dL Hct 47.4 (42-52) % MCV 91.2 (80-100) fL MCH 32.7 (25-34) pg MCHC 35.9 (32-36) g/dL RDW Std Deviation 43.6 (36.4-46.3) fL RDW Coeff of Cassidy 13.1 (11.5-14.5) % Plt Count 382 (130-400) K/uL MPV 9.9 (7.4-10.4) fL Immature Gran % (Auto) 0.4 % Neut % (Auto) 83.3 % Lymph % (Auto) 9.3 % Elliott % (Auto) 6.5 % Eos % (Auto) 0.3 % Baso % (Auto) 0.2 % Immature Gran # (Auto) 0.05 H (0.00-0.02) K/uL Neut # (Auto) 11.35 H (1.4-6.5) K/uL Lymph # (Auto) 1.27 (1.2-3.4) K/uL Elliott # (Auto) 0.89 H (0.11-0.59) K/uL Eos # (Auto) 0.04 (0-0.5) K/uL Baso # (Auto) 0.03 (0-0.2) K/uL Sodium 134 L (136-145) mmol/L Potassium 4.2 (3.5-5.1) mmol/L Chloride 100 (98-107) mmol/L Carbon Dioxide 25 (21-32) mmol/L Anion Gap 9.0 (3-11) BUN 19 H (7-18) mg/dl Creatinine 1.33 D (0.6-1.4) mg/dl Est Cr Clr Drug Dosing 59.2 ml/min Est GFR ( Amer) 67.3 Est GFR (Non-Af Amer) 58.1 BUN/Creatinine Ratio 14.4 (10-20) Glucose 136 H (70-99) mg/dl Calcium 10.6 H (8.5-10.1) mg/dl Total Bilirubin 0.7 (0.2-1) mg/dl AST 14 L (15-37) U/L ALT 33 (12-78) U/L Alkaline Phosphatase 108 (45-117) U/L Total Protein 8.8 H (6.4-8.2) gm/dl Albumin 4.8 (3.4-5.0) gm/dl Globulin 4.0 (2.5-4.0) gm/dl Albumin/Globulin Ratio 1.2 (0.9-2) Lipase 55 L (73-393) U/L Administered Medications Discontinued Medications Diphenhydramine HCl (Benadryl) Confirm Administered Dose 50 mg .ROUTE .[facility] Service-MED ONE Stop: 06/18/19 17:44 Last Admin: 06/18/19 17:48 Dose: Not Given Documented by: [id number] Diphenhydramine HCl 12.5 mg/ (Syringe) 0.25 mls @ 1 mls/hr IV NOW STA Stop: 06/18/19 17:44 Last Admin: 06/18/19 17:48 Dose: 1 mls/hr Documented by: [id number] Sodium Chloride (Nss 1000ml) 1,000 mls @ 999 mls/hr IV .Q1H1M ONE Stop: 06/18/19 18:32 Last Infusion: 06/18/19 19:19 Dose: 0 mls/hr Documented by: [id number] Admin: 06/18/19 17:51 Dose: 999 mls/hr Documented by: [id number] Sodium Chloride (Nss 1000ml) 1,000 mls @ 125 mls/hr IV .Q8H STA Stop: 06/19/19 01:31 Last Admin: 06/18/19 19:18 Dose: 125 mls/hr Documented by: [id number] Morphine Sulfate (Morphine Sulfate) 8 mg IV Q15M PRN PRN Reason: Pain Stop: 07/02/19 17:29 Last Admin: 06/18/19 21:38 Dose: 8 mg Documented by: [id number] Admin: 06/18/19 19:18 Dose: 8 mg Documented by: [id number] Admin: 06/18/19 17:50 Dose: 8 mg Documented by: [id number] Morphine Sulfate (Morphine Sulfate) Confirm Administered Dose 8 mg .ROUTE .STK- MED ONE Stop: 06/18/19 17:45 Last Admin: 06/18/19 17:51 Dose: Not Given Documented by: [id number] Morphine Sulfate (Morphine Sulfate) Confirm Administered Dose 8 mg .ROUTE .STK- MED ONE Stop: 06/18/19 19:17 Last Admin: 06/18/19 19:19 Dose: Not Given Documented by: [id number] Ondansetron HCl (Zofran) 4 mg IV NOW STA Stop: 06/18/19 17:31 Last Admin: 06/18/19 17:47 Dose: 4 mg Documented by: [id number] Discharge Plan Visit Data *Final* Discharge Date/Time: 06/18/19 21:46 Chief Complaint: Abdominal Pain Stated Complaint: RLQ PAIN ED Provider: Bereket Stevens Discharge Problem: Small bowel obstruction Patient Disposition: Admitted As Inpatient Discharge Instructions Interventions: ED Discharge Assessment Last Done: 06/18/19 21:46
--- NOTE | 2019-06-18 18:58 | CT Scan Report ---
ABDOMEN AND PELVIS CT WITHOUT CONTRAST CT DOSE: 330.54 mGy.cm HISTORY: Acute right upper quadrant abdominal pain. History of prior Whipple procedure RUQ abd pain, prior perf, prior whipple TECHNIQUE: Multiaxial CT images of the abdomen and pelvis were performed without contrast. A dose lo wering technique was utilized adhering to the principles of ALARA. COMPARISON STUDY: CT abdomen and pelvis 04/06/2019. FINDINGS: Limited exam without the use of contrast. Postoperative changes of the right lung base with mild subs egmental linear atelectasis/scarring. Pleural-based 1.8 cm opacity of the medial right lung base is u nchanged. Clear left lung base. No pneumatosis or pneumoperitoneum identified. Imaged inferior cardia c chambers are unremarkable. The unenhanced spleen is unremarkable. There are a few hypodense foci of the liver measuring up to 5 mm, incompletely characterized on this study however suggestive of proba ble cysts. Adrenal glands and remaining pancreatic parenchyma are unremarkable. Cholecystectomy. Post operative changes from prior Whipple procedure. Hypodense 2.2 cm lesion of the lateral interpolar rig ht kidney suggest probable cyst. No renal or ureteral calculi or obstructive uropathy. Mild prostameg triston. Partial distention of the urinary bladder with mild wall thickening. Moderate calcified plaque o f the abdominal aorta and branch vessels without aneurysm. No adenopathy. Moderately distended stomach. Radiodense foci layering within the gastric lumen suggests ingested mat erial. Multiple air and fluid-filled dilated loops of small bowel are seen throughout the abdomen and pelvis measuring up to 4.1 cm transversely. Colonic diverticulosis without diverticulitis. The major ity of the colon is decompressed. The terminal ileum is also decompressed. Possible small bowel trans ition point of the central abdomen on image 209 series 3. No obstructing mass or lesion identified. T race abdominal pelvic ascites. Hyperdense tubular structure within the abdominal right lower quadrant suggestive of a noninflamed appendix. Mild layering hyperdensity is noted within a loop of small bow el within the abdominal right lower quadrant on image 282 series 3. No significant bowel wall thicken ing identified. Soft tissues are unremarkable. Degenerative changes of the spine, pelvis and hips. Mi ld convex right curvature of the mid lumbar spine. There are no suspicious lytic or blastic osseous l esions. IMPRESSION: 1. Limited exam without the use of intravenous or enteric contrast. There is at least a moderate grad e small bowel obstruction with probable transition point within the central abdomen, possibly seconda ry to underlying small bowel adhesions. No obstructing mass or lesion identified. 2. Trace likely reactive abdominal pelvic ascites. No pneumatosis or pneumoperitoneum. 3. Postoperative changes of prior Whipple procedure. 4. Additional findings as above. ACT 112: Negative or not required by law. The above report was generated using voice recognition software. It may contain grammatical, syntax o r spelling errors. Electronically signed by: Aureliano Woods M.D. 06/18/2019 6:56 PM
[2019-06-18] MEDS ORDERED: CANNULA ONE (19:58)
--- NOTE | 2019-06-18 20:48 | History & Physical Report ---
Date of Service June 18, 2019 Assessment & Plan (1) Abdominal pain: 59 yo M with PMH tobacco abuse, Whipple procedure, and repair of perforated bowel presents with concerns of abd pain found to have small bowel obstruction on CT Abd/Pelvis. Abd Pain 2/2 SBO -admit to med surg for monitoring -Abd/Pelvis CT: moderate grade small bowel obstruction with probable transition point within the central abdomen, possibly secondary to underlying small bowel adhesions. No obstructing mass or lesion identified. Trace likely reactive abdominal pelvic ascites -NGT placed- maintain to low, intermittent suction -NPO -cont IVF NSS at 125 ml/hr x 2L -electrolyte repletion as needed -cautious use of narcotics for pain control -Zofran prn for nausea -IV Rocephin started in ED, can cont for now -Surgery consult appreciated Tobacco use disorder -nicoderm patch ordered -counseled on cessation H/O Hypomagnesemia -due to poor PO intake -cont Mag oxide 400 mg daily once able -will check Mg level in AM Lumbar Pain -cont home regimen prn PO acetaminophen, cyclobenzaprine, norco once able -was scheduled to have L4-L5 Decompression and Fusion surgery on Fri06/21/[address] Lassiter. Discussed with ED CM to let ortho know this will likely not happen as scheduled FEN/GI: NPO. 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 Last similar occurrence was in Mar when he had the bowel perf. Pain described as sharp pain that waxed and waned, no radiation. 10/10 severity upon ED arrival, 6/10 at time of my evaluation. Alleviated a little by walking around. No known exacerbating factors. Pt had 2 BM's (nonbloody) [employer] that did not help sxs. Tried taking tums, pepto without relief. Last oral intake was 930 AM breakfast (toast, eggs). Associated nausea, diaphoresis and feelings of gassiness. Otherwise denies fever, chills, vomiting, diarrhea, constipation, ingestion of suspicious foods, sick contacts, CP, SOB, SANCHEZ, urinary sxs. Pt with no other additional complaints or concerns. Of note, pt was scheduled to have L4-L5 Decompression and Fusion surgery on 06/21/[address] Lassiter. Abd/Pelvis CT: Limited exam without the use of intravenous or enteric contrast. There is at least a moderate grade small bowel obstruction with probable transition point within the central abdomen, possibly secondary to underlying small bowel adhesions. No obstructing mass or lesion identified. Trace likely reactive abdominal pelvic ascites. No pneumatosis or pneumoperitoneum. Po stoperative changes of prior Whipple procedure. Pertinent Labs: WBC 13.6, Na 134, Lipase 55 (low) ER Course: IV Morphine 8mg x3, IV Benadryl, IV Zofran, NSS Social: Tobacco- 5-7 cigs/day. Alcohol: social drinker. Cutting back on both. 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), and repair of perforated gastrojejunal anastomosis via Tawanda patch (Mar 2019) Allergies Allergy/AdvReac Type Severity Reaction Status Date / Time gluten Allergy Severe Rash Verified 06/18/19 19:03 Home Medications Home Medications Medication Instructions Recorded Confirmed Type pantoprazole 40 mg tablet,delayed 40 mg PO BID #180 tab 05/10/19 06/18/19 Rx release acetaminophen [Tylenol Extra 500 - 1,000 mg PO Q6H PRN 06/11/19 06/18/19 History Strength] multivitamin 1 tab PO QAM 06/11/19 06/18/19 History cyclobenzaprine 10 mg tablet 10 mg PO TID PRN #30 tab 06/18/19 06/18/19 Rx hydrocodone 5 mg-acetaminophen 325 1 tab PO Q6H PRN #30 tab 06/18/19 06/18/19 Rx mg tablet magnesium oxide 400 mg PO DAILY 06/18/19 06/18/19 History Past Med/Surg History Medical History 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 GERD (gastroesophageal reflux disease) Melanoma BACK/SHOULDER Pleural effusion on right 2018, s/p thoracentesis Surgical History H/O resection of pancreas Whipple 05/2016 History of bowel resection FOR PERFORATION. 03/2019 History of chest tube placement History of cholecystectomy with Whipple History of colonoscopy History of esophagogastroduodenoscopy (EGD) History of thoracentesis Wrist fracture, left Social History Preferred Language: Martiniquais Communication Ability: Effective Program Services Planner Required: No Beliefs That Will Affect Care: None marital status: Current Living Situation: Significant Other Other Information That Helps Us Care for You: No Feels Safe at Home: Yes Safety Concerns: Feels Safe At This Time Smoking Status: Current some day smoker Tobacco Type: cigarettes ; Cigarettes Per Day: 5 ; Second Hand Exposure: Yes (SO smokes) ; Hx Alcohol Use: Yes Alcohol type: hard liquor Hx Substance Use: No Review of Systems Review of Systems: All systems reviewed & are unremarkable except as noted in HPI & below Physical Exam Constitutional: WD/WN, vitals as above Eyes: PERRL, conjunctivae normal, anicteric sclerae ENMT: external ear and nose normal, oropharynx normal Respiratory: normal respiratory effort, lungs clear to auscultation Cardiovascular: Rate/Rhythm: regular rhythm and + tachycardic Gastrointestinal (Abdomen): Mild abd distention Rebound/Guarding RLQ>RUQ Musculoskeletal: chronic low lumbar back pain Skin: no rashes, warm and dry Psychiatric: A+Ox3, euthymic affect Results & Data Vital Signs (Past 12 Hours) Vital Signs Temp Pulse Pulse Resp BP BP Pulse Ox 06/18/19 19:33 102 H 18 121/97 98 06/18/19 19:20 99 H 22 98 06/18/19 19:10 96 H 20 95 06/18/19 19:01 91 H 23 94 06/18/19 19:00 90 24 136/91 94 06/18/19 18:50 94 H 23 99 06/18/19 18:40 98 H 20 99 06/18/19 18:39 98 H 22 122/87 99 06/18/19 18:38 105 H 20 06/18/19 18:10 99 H 23 100 06/18/19 18:01 89 23 99 06/18/19 18:00 94 H 28 H 134/96 99 06/18/19 17:51 94 H 26 H 100 06/18/19 17:10 36.7 C 120 H 20 121/77 100 Laboratory Results Laboratory Results - last 24 hr 06/18/19 06/18/19 17:41 17:41 WBC 13.63 H RBC 5.20 Hgb 17.0 D Hct 47.4 MCV 91.2 MCH 32.7 MCHC 35.9 RDW Std Deviation 43.6 RDW Coeff of Cassidy 13.1 Plt Count 382 MPV 9.9 Immature Gran % (Auto) 0.4 Neut % (Auto) 83.3 Lymph % (Auto) 9.3 Greer % (Auto) 6.5 Eos % (Auto) 0.3 Baso % (Auto) 0.2 Immature Gran # (Auto) 0.05 H Neut # (Auto) 11.35 H Lymph # (Auto) 1.27 Greer # (Auto) 0.89 H Eos # (Auto) 0.04 Baso # (Auto) 0.03 Sodium 134 L Potassium 4.2 Chloride 100 Carbon Dioxide 25 Anion Gap 9.0 BUN 19 H Creatinine 1.33 D Est Cr Clr Drug Dosing 59.2 Est GFR ( Amer) 67.3 Est GFR (Non-Af Amer) 58.1 BUN/Creatinine Ratio 14.4 Glucose 136 H Calcium 10.6 H Total Bilirubin 0.7 AST 14 L ALT 33 Alkaline Phosphatase 108 Total Protein 8.8 H Albumin 4.8 Globulin 4.0 Albumin/Globulin Ratio 1.2 Lipase 55 L Medications Administered Current Inpatient Medications Sodium Chloride (Nss 1000ml) 1,000 mls @ 125 mls/hr IV .Q8H STA Stop: 06/19/19 01:31 Last Admin: 06/18/19 19:18 Dose: 125 mls/hr Documented by: Morphine Sulfate (Morphine Sulfate) 8 mg IV Q15M PRN PRN Reason: Pain Stop: 07/02/19 17:29 Last Admin: 06/18/19 19:18 Dose: 8 mg Documented by: Code Status & VTE Plan Code Status FULL Supervising Physician Co-Signing Physician Notes Attending addendum: I have physically seen this patient, have supervised the medical residents activities, and agree with the H&P unless as otherwise noted. Assessment and Plan: Moderate grade small bowel obstruction with transition point mid abdomen- Status post surgical repair of a ruptured viscus and treatment of associated peritonitis during admission from 04/07-04/14/2019. CT suggest cause related to adhesions. N.p.o. NG tube to low intermittent suction NSS at 125 mils per hour. Ceftriaxone 1 g IV daily. Famotidine 20 mg IV every 12 hours Zofran 4 mg IV every 6 hours PRN Benadryl premed for morphine IV worked well for patient in the past. Follow serial laboratories Consult general surgery Remainder of orders and notations as noted. Resident Activity Tracking Resident Involvement: Resident Care Provided Care Provided: Adult Hospital Medicine (1) Abdominal pain Abdominal location: unspecified location Qualified Code(s): R10.9 - Unspecified abdominal pain
[2019-06-18] MEDS ORDERED: cefTRIAXone SODIUM 1,000 MG/50 ML BAG IV STA (22:07)
[2019-06-18] MEDS ORDERED: ALUMINUM/MAGNESIUM SUSP 30 ML UDC PO PRN (22:07)
[2019-06-18] MEDS ORDERED: ACETAMINOPHEN 325 MG TAB PO PRN (22:07)
[2019-06-18] MEDS ORDERED: PANTOprazole 40 MG TAB PO SCH (22:07)
[2019-06-18] MEDS ORDERED: CYCLOBENZAPRINE HCL 10 MG TAB PO PRN (22:21)
[2019-06-18] MEDS ORDERED: HYDROCODONE/ACETAMOPHEN 5/325MG TAB PO PRN (22:22)
[2019-06-18] MEDS ORDERED: ONDANSETRON INJ 2 MG/ML 2 ML VIAL IV PRN (23:39)
[2019-06-19] MEDS: MoRPHine SULFATE 2 MG/ML CARP IV PRN ×7 (01:24→23:43)
[2019-06-19] MEDS: SODIUM CHLORIDE 0.9% 1000ML 1,000 ML IV SCH ×4 (03:31→18:51)
[2019-06-19 06:06] LABS: Calcium 9.1 mg/dl (8.5-10.1); Est GFR (African American) 89.6; Est GFR (Non-African American) 77.3; Potassium 4.4 mmol/L (3.5-5.1)
[2019-06-19 06:06] LABS: Appearance Urine Cloudy (Clear); Bacteria Urine Automated Negative (Negative); Bilirubin Urine Negative (Negative); Blood Urine Negative (Negative); Color Urine Dark Yellow; Glucose Urine UA Negative (Negative); Ketones Urine Trace (Negative); Leukocyte Esterase Urine Negative (Negative); Nitrite Urine Negative (Negative); Protein Urine Trace (Negative); RBC Urine Automated 0-4 /hpf (0-4); Specific Gravity Urine 1.033 (1.000-1.030); Urobilinogen Urine Negative (Negative); pH Urine 5.5 (4.5-7.5)
[2019-06-19 06:14] LABS: Basophils # (auto) 0.01 K/uL (0-0.2); Basophils % (auto) 0.1 %; Eosinophils # (auto) 0.14 K/uL (0-0.5); Eosinophils % (auto) 1.8 %; Hematocrit (blood only) 38.6 % (42-52); Hemoglobin 13.1 g/dL (14.0-18.0); Immature Granulocytes # (auto) 0.03 K/uL (0.00-0.02); Immature Granulocytes % (auto) 0.4 %; Lymphocytes # (auto) 1.19 K/uL (1.2-3.4); Lymphocytes % (auto) 15.7 %; Mean Corpuscular Hemoglobin 32.3 pg (25-34); Mean Corpuscular Hgb Conc 33.9 g/dL (32-36); Mean Corpuscular Volume 95.1 fL (80-100); Mean Platelet Volume 9.8 fL (7.4-10.4); Monocytes # (auto) 0.88 K/uL (0.11-0.59); Monocytes % (auto) 11.6 %; Neutrophils # (auto) 5.35 K/uL (1.4-6.5); Neutrophils % (auto) 70.4 %; Platelet Count 297 K/uL (130-400); RDW Coefficient of Variation 13.4 % (11.5-14.5); RDW Standard Deviation 46.3 fL (36.4-46.3); Red Blood Count 4.06 M/uL (4.7-6.1)
[2019-06-19] MEDS ORDERED: MULTIVITAMIN TAB PO SCH (09:00)
[2019-06-19] MEDS ORDERED: MAGNESIUM OXIDE 400 MG TAB PO SCH (09:00)
[2019-06-19] MEDS: FAMOTIDINE 20 MG in SYRINGE 3 ML IV SCH ×2 (09:07→20:24)
[2019-06-19] MEDS: NICOTINE 14 MG/24 HR PATCH TD SCH (09:08)
[2019-06-19] MEDS: ENOXAPARIN INJ 40 MG/0.4 ML SYR SQ SCH (09:08)
--- NOTE | 2019-06-19 09:15 | Surgery Consultation ---
Date of Consultation June 19, 2019 Assessment & Plan (1) Small bowel obstruction: This is a 59y M with a PMH of Whipple (2016) and h/o perforated gastrojejunal anastomosis repaired with Dr. Peterson who presents to the [facility] ED on 06/18/19 with complaints of abdominal pain. Workup in the ED with a CT scan of the abdomen/pelvis was limited, but did show concern for a moderate grade small bowel obstruction, with probable transition point in the central abdomen, likely 2/2 underlying adhesions. An NGT was placed, so far output has been ~150cc bilious output. Patient's pain and abdominal bloat remain present, but feels better than yesterday. He remains tender to palpation, mostly right sided abdomen. He currently is not passing flatus or BM's. At this time would recommend continuing a trial of conservative management with NGT decompression and keeping patient NPO with IVF. He is concerned that he may not be able to undergo his spine surgery this upcoming Friday. Discussed with patient that it may need to be postponed. We will continue to follow. Supervising Physician Co-Signing Physician Notes Patient seen and examined, labs and imaging reviewed, agree with above. 59-year-old male with history of Whipple several years ago, and status post ex lap with repair of perforated marginal ulcer with Dr. Peterson in March, presented last night with complains of bloating, abdominal discomfort, and nausea. He had 2 bowel movements yesterday morning but none since. He has not been passing flatus as he can recall. He does feel that his abdomen is less bloated and there is slightly less pain but still not comfortable. NG tube placed yesterday. On exam mildly distended, tympanitic to percussion, moderately tender with no guarding. CT scan reviewed from yesterday and showed likely small bowel obstruction, no evidence of perforation. White blood cell count elevated yesterday but back to normal this morning. Continue conservative management for small bowel obstruction, KUB tomorrow, surgery will continue to follow. History of Present Illness Attending Physician: Roly Brennan MD History of Present Illness This is a 59y M with a PMH of Whipple (2016) and h/o perforated gastrojejunal anastomosis repaired with Dr. Peterson who presents to the [facility] ED on 06/18/19 with complaints of abdominal pain. Patient reports he was feeling well until Friday he woke up around 4am with what he felt like were gas-pains. He took some Tums thinking he had indigestion and went back to sleep. Throughout the day Friday the gas pain persisted and worsened in severity prompting him to come to the ED for evaluation. In the ED a CT scan was obtained that revealed findings concerning for a moderate grade small bowel obstruction, with a probable transition point in the central abdomen, likely 2/2 underlying adhesions. Patient reports his last meal was some toast and a banana Friday around 9:30am. Last BM was 12:30pm yesterday. He endorses + burping, abdominal bloat, and nausea. He denies passing flatus or any bouts of emesis. Allergies Allergy/AdvReac Type Severity Reaction Status Date / Time gluten Allergy Severe Rash Verified 06/18/19 19:03 Home Medications Home Medications Medication Instructions Recorded Confirmed Type pantoprazole 40 mg tablet,delayed 40 mg PO BID #180 tab 05/10/19 06/18/19 Rx release acetaminophen [Tylenol Extra 500 - 1,000 mg PO Q6H PRN 06/11/19 06/18/19 History Strength] multivitamin 1 tab PO QAM 06/11/19 06/18/19 History cyclobenzaprine 10 mg tablet 10 mg PO TID PRN #30 tab 06/18/19 06/18/19 Rx hydrocodone 5 mg-acetaminophen 325 1 tab PO Q6H PRN #30 tab 06/18/19 06/18/19 Rx mg tablet magnesium oxide 400 mg PO DAILY 06/18/19 06/18/19 History Patient History Medical History 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 GERD (gastroesophageal reflux disease) Melanoma BACK/SHOULDER Pleural effusion on right 2018, s/p thoracentesis Surgical History H/O resection of pancreas Whipple 05/2016 History of bowel resection FOR PERFORATION. 03/2019 History of chest tube placement History of cholecystectomy with Whipple History of colonoscopy History of esophagogastroduodenoscopy (EGD) History of thoracentesis Wrist fracture, left Social History Preferred Language: Cook Islander Communication Ability: Effective Facsimile Operator Required: No Beliefs That Will Affect Care: None marital status: Current Living Situation: Significant Other Other Information That Helps Us Care for You: No Feels Safe at Home: Yes Safety Concerns: Feels Safe At This Time Smoking Status: Current some day smoker Tobacco Type: cigarettes ; Cigarettes Per Day: 5 ; Second Hand Exposure: Yes (SO smokes) ; Hx Alcohol Use: Yes Alcohol type: hard liquor Hx Substance Use: No Review of Systems Constitutional: + sweats; no fever and no chills Gastrointestinal: + abdominal pain (mostly right sided), + belching, + bloating and + nausea; no vomiting no flatus Physical Exam Physical Exam: awake/alert Constitutional: well developed; no acute distress Respiratory: normal respiratory effort Gastrointestinal (Abdomen): Inspection/Auscultation: + abdomen distended (mild) and + abdominal surgical scar (midline surgical scar) Percussion/Palpation: + abdomen tender (ttp right sided abdomen) and abdomen soft + NGT with ~150cc bilious output Results & Data Vital Signs (Past 12 Hours) Vital Signs Temp Pulse Resp BP Pulse Ox 06/19/19 07:40 36.9 C 88 18 125/84 97 06/18/19 23:45 37.2 C 06/18/19 21:25 90 18 142/90 H [address] WITHOUT CONTRAST CT DOSE: 330.54 mGy.cm HISTORY: Acute right upper quadrant abdominal pain. History of prior Whipple procedure RUQ abd pain, prior perf, prior whipple TECHNIQUE: Multiaxial CT images of the abdomen and pelvis were performed without contrast. A dose lowering technique was utilized adhering to the principles of ALARA. COMPARISON STUDY: CT abdomen and pelvis 04/06/2019. FINDINGS: Limited exam without the use of contrast. Postoperative changes of the right lung base with mild subsegmental linear atelectasis/scarring. Pleural-based 1.8 cm opacity of the medial right lung base is unchanged. Clear left lung base. No pneumatosis or pneumoperitoneum identified. Imaged inferior cardiac chambers are unremarkable. The unenhanced spleen is unremarkable. There are a few hypodense foci of the liver measuring up to 5 mm, incompletely characterized on this study however suggestive of probable cysts. Adrenal glands and remaining pancreatic parenchyma are unremarkable. Cholecystectomy. Postoperative changes from prior Whipple procedure. Hypodense 2.2 cm lesion of the lateral interpolar right kidney suggest probable cyst. No renal or ureteral calculi or obstructive uropathy. Mild prostamegaly. Partial distention of the urinary bladder with mild wall thickening. Moderate calcified plaque of the abdominal aorta and branch vessels without aneurysm. No adenopathy. Moderately distended stomach. Radiodense foci layering within the gastric lumen suggests ingested material. Multiple air and fluid-filled dilated loops of small bowel are seen throughout the abdomen and pelvis measuring up to 4.1 cm transversely. Colonic diverticulosis without diverticulitis. The majority of the colon is decompressed. The terminal ileum is also decompressed. Possible small bowel transition point of the central abdomen on image 209 series 3. No obstructing mass or lesion identified. Trace abdominal pelvic ascites. Hyperden se tubular structure within the abdominal right lower quadrant suggestive of a noninflamed appendix. Mild layering hyperdensity is noted within a loop of small bowel within the abdominal right lower quadrant on image 282 series 3. No significant bowel wall thickening identified. Soft tissues are unremarkable. Degenerative changes of the spine, pelvis and hips. Mild convex right curvature of the mid lumbar spine. There are no suspicious lytic or blastic osseous lesions. IMPRESSION: 1. Limited exam without the use of intravenous or enteric contrast. There is at least a moderate grade small bowel obstruction with probable transition point within the central abdomen, possibly secondary to underlying small bowel adhesions. No obstructing mass or lesion identified. 2. Trace likely reactive abdominal pelvic ascites. No pneumatosis or pneumoperitoneum. 3. Postoperative changes of prior Whipple procedure. 4. Additional findings as above. ACT 112: Negative or not required by law. The above report was generated using voice recognition software. It may contain grammatical, syntax or spelling errors. Electronically signed by: Aureliano Woods M.D. 06/18/2019 6:56 PM PG Care Time/CCT Total # of Minutes Spent Total Time Spent with Patient: Total time spent is greater than 50% in coordi nation of care (as documented) at patient's floor/unit and/or counseling patient: Coding Level of Care Code 88174 Inpt Consult Level 2 Diagnoses Small bowel obstruction K56.609
--- NOTE | 2019-06-19 10:21 | Hospitalist Progress Note ---
Date of Service June 19, 2019 Assessment & Plan (1) Small bowel obstruction: Abd/pelvis CT showed moderate grade small bowel obstruction with probably transition point within the central abdomen, possibly secondary to underlying small bowel adhesions. No obstructing mass or lesion identified. Trace likely reactive abdominal pelvic ascites. - Continue NGT - Pain control - continue IVF - Surgery consulted - Conservative management for now (2) Lumbar pain: Scheduled for lumbar surgery on Friday - may have to push this back. - Pain control, continue Flexeril (3) Anemia: Normocytic Likely chronic and the drop is due to dilution. Patient reports not drinking anything but a cup of coffee at 0930 yesterday morning and that his urine has been concentrated. No s/s of bleeding, belly is tender to palpation but no sign of peritonitis. Looking back through his lab history, he is frequently anemic - Will repeat hgb at 1200 to ensure its stability (4) DVT prophylaxis: SCDs, enoxaparin Admission and Anticipated Discharge Date Admission Date: June 18, 2019 Subjective Mr. Pineda reports his pain is tolerable and a little better than yesterday. No bms since yesterday. Tolerating NG, no nausea. ROS Constitutional: no chills, aches, sweats or fever Respiratory: no sob,cough, sputum, or wheezing Cardiac: no chest pain, palpitations, edema, orthopnea or lightheadedness GI: no abdominal pain, nausea, vomiting, diarrhea or constipation : no dysuria or hesitancy Extremities: no joint pain or weakness Skin: no rash All other systems reviewed and negative Physical Exam Physical Exam: General: no distress Eyes: normal inspection, PERLL Respiratory: chest non tender, clear to auscultation, normal breath sounds, no respiratory distress, no accessory muscle use Cardiac: regular rate and rhythm, no rub or gallop, no murmur, no edema, no jvd GI/: hypoactive bowel sounds, no abd pain or tenderness, soft, non distended Extremities: normal range of motion, normal strength, non tender Neuro/Psych: alert and oriented x 3, normal mood and affect Skin: normal color, dry Results & Data ([facility]) Vital Signs (Past 12 Hours) Vital Signs Temp Pulse Resp BP Pulse Ox 06/19/19 07:40 36.9 C 88 18 125/84 97 06/18/19 23:45 37.2 C PG Care Time/CCT Total # of Minutes Spent Total Time Spent with Patient: Total time spent is greater than 50% in coordination of care (as documented) at patient's floor/unit and/or counseling patient: Coding Level of Care Code 98223 Subseq Hosp Care Lvl 2 Diagnoses Small bowel obstruction K56.609 Lumbar pain M54.5 Anemia D64.9 DVT prophylaxis Z29.9
--- NOTE | 2019-06-19 22:25 | Billing Data ---
Date of Service June 19, 2019 Coding Level of Care Code 09484 Initial Inpt Care Lvl 3
[2019-06-19] MEDS: DiphenhydrAMINE HCL 50 MG/ML VIAL IV PRN ×2 (23:01)
[2019-06-20] MEDS: SODIUM CHLORIDE 0.9% 1000ML 1,000 ML IV SCH ×3 (02:17→18:01)
[2019-06-20] MEDS: MoRPHine SULFATE 2 MG/ML CARP IV PRN ×2 (04:18→13:41)
--- NOTE | 2019-06-20 07:38 | XRay Report ---
KUB HISTORY: Follow up study in a patient with small bowel obstruction eval sbo COMPARISON: CT abdomen and pelvis 06/18/2019 FINDINGS: A few loops of mildly dilated small bowel are again noted within the central abdomen, decre ased from comparison. Air is also noted within the large bowel with mild fecal retention. Cholecystec megan. No renal calculi. No ureteral calculi. No pneumoperitoneum or pneumatosis. Convex right curvat ure of the mid lumbar spine with multilevel degenerative changes. An enteric tube is noted with dista l tip terminating in the mid gastric lumen. No fracture. IMPRESSION: Decreased small bowel distention with enteric tube in the stomach. ACT 112: Negative or not required by law. The above report was generated using voice recognition software. It may contain grammatical, syntax o r spelling errors. Electronically signed by: Aureliano Woods M.D. 06/20/2019 7:37 AM
[2019-06-20] MEDS: NICOTINE 14 MG/24 HR PATCH TD SCH (08:22)
[2019-06-20] MEDS: FAMOTIDINE 20 MG in SYRINGE 3 ML IV SCH ×2 (08:22→20:39)
[2019-06-20] MEDS: ENOXAPARIN INJ 40 MG/0.4 ML SYR SQ SCH (08:22)
[2019-06-20 09:13] LABS: Basophils # (auto) 0.02 K/uL (0-0.2); Basophils % (auto) 0.5 %; Eosinophils # (auto) 0.04 K/uL (0-0.5); Hematocrit (blood only) 38.3 % (42-52); Hemoglobin 12.8 g/dL (14.0-18.0); Immature Granulocytes # (auto) 0.01 K/uL (0.00-0.02); Immature Granulocytes % (auto) 0.3 %; Mean Corpuscular Hemoglobin 31.8 pg (25-34); Mean Corpuscular Hgb Conc 33.4 g/dL (32-36); Mean Corpuscular Volume 95.3 fL (80-100); Mean Platelet Volume 9.2 fL (7.4-10.4); Monocytes # (auto) 0.64 K/uL (0.11-0.59); Neutrophils # (auto) 2.69 K/uL (1.4-6.5); Neutrophils % (auto) 67.2 %; Platelet Count 300 K/uL (130-400); RDW Coefficient of Variation 13.4 % (11.5-14.5); RDW Standard Deviation 46.7 fL (36.4-46.3); Red Blood Count 4.02 M/uL (4.7-6.1)
[2019-06-20 09:44] LABS: Albumin Level 3.4 gm/dl (3.4-5.0); BUN Creatinine Ratio 19.6 (10-20); Calcium 9.1 mg/dl (8.5-10.1); Creatinine Clr Calc Pharmacy 84.7 ml/min; Est GFR (African American) 103.8; Est GFR (Non-African American) 89.5; Potassium 4.2 mmol/L (3.5-5.1)
[2019-06-20 09:49] LABS: Bilirubin,Total 0.8 mg/dl (0.2-1); Globulin 3.4 gm/dl (2.5-4.0); Total Protein 6.8 gm/dl (6.4-8.2)
--- NOTE | 2019-06-20 11:08 | Surgery Progress Note ---
Date of Service June 20, 2019 Assessment & Plan (1) Small bowel obstruction: 59-year-old male with resolving small bowel obstruction. We will advance to clear liquids. He is scheduled for spine surgery tomorrow. As long as he continues to improve I do not feel that this should preclude him from surgery. Clear liquids N.p.o. after midnight for possible surgery tomorrow Ambulation Surgery will follow Subjective 59-year-old male with history of Whipple and repair of perforated gastrojejunostomy ulcer, admitted with small bowel obstruction. He had 2 large bowel movements and is passing flatus. His abdomen feels softer and no longer hurts. The NG tube had minimal output and was removed. KUB looks good this morning. Physical Exam Constitutional: WD/WN, vitals as above Gastrointestinal (Abdomen): normal bowel sounds, soft, nontender, no hepatosplenomegaly Inspection/Auscultation: + abdominal surgical scar; abdomen not distended Results & Data Vital Signs (Past 12 Hours) Vital Signs Temp Pulse Resp BP Pulse Ox 06/20/19 08:06 37.0 C 86 16 143/82 H 96 06/19/19 23:49 37.5 C Laboratory Results Laboratory Results - last 24 hr 06/19/19 06/20/19 06/20/19 11:40 08:58 08:58 WBC 4.00 L RBC 4.02 L Hgb 14.9 12.8 L Hct 38.3 L MCV 95.3 MCH 31.8 MCHC 33.4 RDW Std Deviation 46.7 H RDW Coeff of Cassidy 13.4 Plt Count 300 MPV 9.2 Immature Gran % (Auto) 0.3 Neut % (Auto) 67.2 Lymph % (Auto) 15.0 Sutter % (Auto) 16.0 Eos % (Auto) 1.0 Baso % (Auto) 0.5 Immature Gran # (Auto) 0.01 Neut # (Auto) 2.69 Lymph # (Auto) 0.60 L Sutter # (Auto) 0.64 H Eos # (Auto) 0.04 Baso # (Auto) 0.02 Sodium 137 Potassium 4.2 Chloride 105 Carbon Dioxide 27 Anion Gap 5.0 BUN 18 Creatinine 0.93 Est Cr Clr Drug Dosing 84.7 Est GFR ( Amer) 103.8 Est GFR (Non-Af Amer) 89.5 BUN/Creatinine Ratio 19.6 Glucose 106 H Calcium 9.1 Total Bilirubin 0.8 AST 12 L ALT 20 Alkaline Phosphatase 76 Total Protein 6.8 D Albumin 3.4 Globulin 3.4 Albumin/Globulin Ratio 1.0 Diagnostic Findings KUB HISTORY: Follow up study in a patient with small bowel obstruction eval sbo COMPARISON: CT abdomen and pelvis 06/18/2019 FINDINGS: A few loops of mildly dilated small bowel are again noted within the central abdomen, decreased from comparison. Air is also noted within the large bowel with mild fecal retention. Cholecystectomy. No renal calculi. No ureteral calculi. No pneumoperitoneum or pneumatosis. Convex right curvature of the mid lumbar spine with multilevel degenerative changes. An enteric tube is noted with distal tip terminating in the mid gastric lumen. No fracture. IMPRESSION: Decreased small bowel distention with enteric tube in the stomach. PG Care Time/CCT Total # of Minutes Spent Total Time Spent with Patient: Total time spent is greater than 50% in coordination of care (as documented) at patient's floor/unit and/or counseling patient: Coding Level of Care Code 79037 Inpt Consult Level 2 Diagnoses Small bowel obstruction K56.609
--- NOTE | 2019-06-20 11:55 | Hospitalist Progress Note ---
Date of Service June 20, 2019 Assessment & Plan (1) Small bowel obstruction: Abd/pelvis CT showed moderate grade small bowel obstruction with probably transition point within the central abdomen, possibly secondary to underlying small bowel adhesions. No obstructing mass or lesion identified. Trace likely reactive abdominal pelvic ascites. - NGT discontinued - Pain control - continue IVF - Surgery consulted - Conservative management for now - advance to clear liquids (2) Lumbar pain: Scheduled for lumbar surgery on Friday - Will defer to surgery on timing of this. Patient is high risk for re-obstructing/post op ileus following lumbar surgery - Pain control, continue Flexeril (3) Anemia: Normocytic, stable (4) DVT prophylaxis: SCDs, enoxaparin Admission and Anticipated Discharge Date Admission Date: June 18, 2019 Subjective Mr. Pineda is feeling better today. His NG was removed due to it being clogged and he has not had further nausea, his abdominal pain has improved. No BM yet though he is passing gas ROS Constitutional: no chills, aches, sweats or fever Respiratory: no sob,cough, sputum, or wheezing Cardiac: no chest pain, palpitations, edema, orthopnea or lightheadedness GI: see HPI : no dysuria or hesitancy Extremities: no joint pain or weakness Skin: no rash All other systems reviewed and negative Physical Exam Physical Exam: General: no distress Eyes: normal inspection, PERLL Respiratory: chest non tender, clear to auscultation, normal breath sounds, no respiratory distress, no accessory muscle use Cardiac: regular rate and rhythm, no rub or gallop, no murmur, no edema, no jvd GI/: active bowel sounds, mild abdominal tenderness, distended, soft Extremities: normal range of motion, normal strength, non tender Neuro/Psych: alert and oriented x 3, normal mood and affect Skin: normal color, dry Results & Data ([facility]) Vital Signs (Past 12 Hours) Vital Signs Temp Pulse Resp BP Pulse Ox 06/20/19 08:06 37.0 C 86 16 143/82 H 96 PG Care Time/CCT Total # of Minutes Spent Total Time Spent with Patient: Total time spent is greater than 50% in coordination of care (as documented) at patient's floor/unit and/or counseling patient: Coding Level of Care Code 69782 Subseq Hosp Care Lvl 2 Diagnoses Small bowel obstruction K56.609 Lumbar pain M54.5 Anemia D64.9 DVT prophylaxis Z29.9
[2019-06-20] MEDS: HYDROCODONE/APAP 2.5MG/108MG ELIX 5 ML UDP PO PRN ×2 (19:08→19:09)
[2019-06-20] MEDS: LORazepam 0.5 MG TAB PO PRN (23:23)
[2019-06-21] MEDS: SODIUM CHLORIDE 0.9% 1000ML 1,000 ML IV SCH ×2 (02:00→09:19)
[2019-06-21] MEDS: MoRPHine SULFATE 2 MG/ML CARP IV PRN ×2 (02:02→07:46)
[2019-06-21 05:11] LABS: Basophils # (auto) 0.02 K/uL (0-0.2); Basophils % (auto) 0.6 %; Eosinophils # (auto) 0.13 K/uL (0-0.5); Eosinophils % (auto) 3.8 %; Hematocrit (blood only) 32.3 % (42-52); Hemoglobin 10.8 g/dL (14.0-18.0); Lymphocytes # (auto) 1.03 K/uL (1.2-3.4); Lymphocytes % (auto) 30.4 %; Mean Corpuscular Hemoglobin 31.7 pg (25-34); Mean Corpuscular Hgb Conc 33.4 g/dL (32-36); Mean Corpuscular Volume 94.7 fL (80-100); Mean Platelet Volume 9.2 fL (7.4-10.4); Monocytes # (auto) 0.53 K/uL (0.11-0.59); Monocytes % (auto) 15.6 %; Neutrophils # (auto) 1.68 K/uL (1.4-6.5); Neutrophils % (auto) 49.6 %; Platelet Count 246 K/uL (130-400); RDW Coefficient of Variation 13.2 % (11.5-14.5); RDW Standard Deviation 45.6 fL (36.4-46.3); Red Blood Count 3.41 M/uL (4.7-6.1); White Blood Count 3.39 K/uL (4.8-10.8)
[2019-06-21 05:41] LABS: BUN Creatinine Ratio 15.3 (10-20); Calcium 8.5 mg/dl (8.5-10.1); Creatinine Clr Calc Pharmacy 94.9 ml/min; Est GFR (African American) 111.6; Est GFR (Non-African American) 96.3; Potassium 3.9 mmol/L (3.5-5.1)
[2019-06-21] MEDS ORDERED: ACETAMINOPHEN 500 MG TAB PO SCH (06:00)
[2019-06-21] MEDS ORDERED: CeleBREX 200 MG CAP PO SCH (06:00)
[2019-06-21] MEDS ORDERED: CEFAZOLIN 1000MG 1,000 MG/7.5 ML SYR IV SCH (06:00)
--- NOTE | 2019-06-21 08:45 | Surgery Progress Note ---
Date of Service June 21, 2019 Assessment & Plan (1) Small bowel obstruction: Patient doing well from abdominal standpoint NGT removed yesterday continues to pass flatus and have BM's is currently NPO for spine surgery today with Dr. Lassiter; okay from our standpoint to undergo operation today postoperatively patient can advance diet as tolerates pt seen and examined with Dr. Harper and Dr. Peterson this AM we will sign off for now, but please call if any questions/concerns Subjective Patient offers no complaints. Is passing flatus and having BM's. Tolerated liquids yesterday. Physical Exam Physical Exam: awake/alert Constitutional: well developed and well nourished; no acute distress Results & Data Vital Signs (Past 12 Hours) Vital Signs Temp Pulse Resp BP BP Pulse Ox 06/21/19 07:25 37.0 C 73 16 145/80 H 98 06/20/19 23:09 36.9 C 78 16 162/89 H 97 PG Care Time/CCT Total # of Minutes Spent Total Time Spent with Patient: Total time spent is greater than 50% in coordination of care (as documented) at patient's floor/unit and/or counseling patient: Coding Level of Care Code 42257 Subseq Hosp Care Lvl 1 Diagnoses Small bowel obstruction K56.609
[2019-06-21] MEDS: FAMOTIDINE 20 MG in SYRINGE 3 ML IV SCH ×2 (09:17→21:06)
[2019-06-21] MEDS: NICOTINE 14 MG/24 HR PATCH TD SCH (09:17)
[2019-06-21] MEDS: HYDROmorphone INJ 1 MG/ML SYRINGE IV PRN ×11 (10:45→15:25)
--- NOTE | 2019-06-21 11:48 | History & Physical Bridge Note ---
Date of Service June 21, 2019 History & Physical Bridge Note I have examined the patient, reviewed the History & Physical and in the interval since the performance of the History & Physical I have noted the following changes of clinical significance: no changes noted
--- NOTE | 2019-06-21 11:50 | History & Physical Report ---
Date of Service June 21, 2019 Assessment & Plan (1) Lumbar disc herniation with radiculopathy: L4-L5 decompression fusion Present on Admission?: Yes History of Present Illness Chief Complaint: Back and leg pain Primary Care Provider: Tyesha Jones MD This is a 59-year-old male with presents with markedly worsening back left leg pain and weakness. He did fail nonoperative care and is here for urgent surgical intervention. Allergies Allergy/AdvReac Type Severity Reaction Status Date / Time gluten Allergy Severe Rash Verified 06/21/19 11:40 Home Medications Home Medications Medication Instructions Recorded Confirmed Type pantoprazole 40 mg tablet,delayed 40 mg PO BID #180 tab 05/10/19 06/18/19 Rx release acetaminophen [Tylenol Extra 500 - 1,000 mg PO Q6H PRN 06/11/19 06/18/19 History Strength] multivitamin 1 tab PO QAM 06/11/19 06/18/19 History cyclobenzaprine 10 mg tablet 10 mg PO TID PRN #30 tab 06/18/19 06/18/19 Rx hydrocodone 5 mg-acetaminophen 325 1 tab PO Q6H PRN #30 tab 06/18/19 06/18/19 Rx mg tablet magnesium oxide 400 mg PO DAILY 06/18/19 06/18/19 History Past Med/Surg History Medical History 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 GERD (gastroesophageal reflux disease) Melanoma BACK/SHOULDER Pleural effusion on right 2018, s/p thoracentesis Surgical History H/O resection of pancreas Whipple 05/2016 History of bowel resection FOR PERFORATION. 03/2019 History of chest tube placement History of cholecystectomy with Whipple History of colonoscopy History of esophagogastroduodenoscopy (EGD) History of thoracentesis Wrist fracture, left Social History Preferred Language: Uzbek Communication Ability: Effective Farmhand Required: No Beliefs That Will Affect Care: None marital status: Current Living Situation: Significant Other Other Information That Helps Us Care for You: No Feels Safe at Home: Yes Safety Concerns: Feels Safe At This Time Smoking Status: Current some day smoker Tobacco Type: cigarettes ; Cigarettes Per Day: 5 ; Second Hand Exposure: Yes (SO smokes) ; Hx Alcohol Use: Yes Alcohol type: hard liquor Hx Substance Use: No Physical Exam Physical Exam: Patient is alert and oriented neurologically intact. Results & Data Vital Signs (Past 12 Hours) Vital Signs Temp Pulse Resp BP BP Pulse Ox 06/21/19 11:30 36.7 C 69 20 155/89 H 100 06/21/19 07:25 37.0 C 73 16 145/80 H 98
--- NOTE | 2019-06-21 12:03 | Anesthesiology Consultation ---
Date of Service June 21, 2019 Assessment & Plan (1) Encounter for pre-operative examination: Chart Review Chart Review: Acceptable Risk for Surgery History Surgery Operation Date: 06/21/19 12:35 Proposed Procedures p L4-L5 Decompression and Fusion, Spinal Cord Monitoring - Nate Lassiter DO Height/Weight Height: 5 ft 10 in Weight: 70 kg Allergies Allergy/AdvReac Type Severity Reaction Status Date / Time gluten Allergy Severe Rash Verified 06/21/19 11:40 Medications Home Medications Medication Instructions Recorded Confirmed Last Taken pantoprazole 40 mg tablet,delayed 40 mg PO BID #180 tab 05/10/19 06/18/19 06/04/19 release acetaminophen [Tylenol Extra 500 - 1,000 mg PO Q6H PRN 06/11/19 06/18/19 06/18/19 12:00 Strength] multivitamin 1 tab PO QAM 06/11/19 06/18/19 Unknown cyclobenzaprine 10 mg tablet 10 mg PO TID PRN #30 tab 06/18/19 06/18/19 Unknown hydrocodone 5 mg-acetaminophen 325 1 tab PO Q6H PRN #30 tab 06/18/19 06/18/19 0 06/18/19 12:00 mg tablet magnesium oxide 400 mg PO DAILY 06/18/19 06/18/19 Unknown Active Medications Generic Name Dose Route Start Last Admin Trade Name Freq PRN Reason Stop Dose Admin Hydrocodone Bitart/Acetaminophen 5 ml 06/20/19 13:08 06/20/19 19:09 Lortab PO 07/04/19 13:07 5 ml Q4H PRN Administration Pain Diphenhydramine HCl 25 mg 06/18/19 22:07 06/19/19 23:01 Benadryl IV 07/18/19 22:06 25 mg Q4H PRN Administration Pain Enoxaparin Sodium 40 mg 06/19/19 09:00 06/20/19 08:22 Lovenox SQ 07/19/19 08:59 40 mg QAM DOROTHY Administration Sodium Chloride 1,000 mls @ 125 mls/hr 06/18/19 22:30 06/21/19 11:18 Nss 1000ml IV 07/18/19 22:29 0 mls/hr .Q8H DOROTHY Infusion Famotidine 20 mg/ Syringe 5 mls @ 2.5 mls/min 06/19/19 09:00 06/21/19 09:17 IV 07/19/19 08:59 2.5 mls/min BID DOROTHY Administration Lorazepam 0.5 mg 06/20/19 13:09 06/20/19 23:23 Ativan PO 07/20/19 13:08 0.5 mg HS PRN Administration Anxiety Miscellaneous 1 ea 06/19/19 08:59 06/21/19 09:17 Remove Nicoderm Patch N/A 07/19/19 08:58 1 ea [id number] DOROTHY Administration Morphine Sulfate 2 mg 06/18/19 22:07 06/21/19 07:46 Morphine Sulfate IV 07/02/19 22:06 2 mg Q3H PRN Administration Pain Nicotine 14 mg 06/19/19 09:00 06/21/19 09:17 Nicoderm Cq TD 07/19/19 08:59 14 mg QAM DOROTHY Administration NPO Date Last Intake of Fluids: 06/20/19 Time Last Intake of Fluids: 22:00 Date Last Intake of Solids: 06/18/19 Time Last Intake of Solids: 08:00 Past Medical History Medical History (Updated 06/21/19 @ 12:04 by Hilario Lucio MD) Anemia 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 GERD (gastroesophageal reflux disease) Melanoma BACK/SHOULDER Pleural effusion on right 2018, s/p thoracentesis Past Surgical History Surgical History H/O resection of pancreas Whipple 05/2016 History of bowel resection FOR PERFORATION. 03/2019 History of chest tube placement History of cholecystectomy with Whipple History of colonoscopy History of esophagogastroduodenoscopy (EGD) History of thoracentesis Wrist fracture, left Social History Smoking Status: Current some day smoker tobacco type: cigarettes Smoking cigarettes per day: 5 Hx Alcohol Use: Yes Alcohol type: hard liquor alcohol intake frequency: other Alcohol Intake Frequency Comment: "socially" Hx Substance Use: No Physical Exam Vital Signs Last Vital Signs Temp 36.7 C 06/21/19 11:30 Pulse 69 06/21/19 11:30 Resp 20 06/21/19 11:30 BP 155/89 H 06/21/19 11:30 Pulse Ox 100 06/21/19 11:30 Testing Laboratory Results 06/21/19 04:40 06/21/19 04:40 Urine Color Dark Yellow 06/19/19 05:55 Urine Appearance Cloudy (Clear) A 06/19/19 05:55 Urine pH 5.5 (4.5-7.5) 06/19/19 05:55 Ur Specific [place] 1.033 (1.000-1.030) H 06/19/19 05:55 Urine Protein Trace (Negative) H 06/19/19 05:55 Urine Glucose (UA) Negative (Negative) 06/19/19 05:55 Urine Ketones Trace (Negative) H 06/19/19 05:55 Urine Nitrite Negative (Negative) 06/19/19 05:55 Ur Leukocyte Esterase Negative (Negative) 06/19/19 05:55 Urine WBC (Auto) 1-5 /hpf (0-5) 06/19/19 05:55 Urine RBC (Auto) 0-4 /hpf (0-4) 06/19/19 05:55 U Hyaline Cast (Auto) 5-10 /lpf (0-5) H 06/19/19 05:55 U Epithel Cells (Auto) 5-10 /lpf (0-5) H 06/19/19 05:55 Urine Bacteria (Auto) Negative (Negative) 06/19/19 05:55 Blood Type A Positive 06/21/19 04:40 Antibody Screen NEGATIVE 06/21/19 04:40 Electrocardiogram Date: 06/17/19 Findings: + NSR @ (77) and + NSST changes Chest X-Ray Date: 06/17/19 Findings: + NAD
[2019-06-21] MEDS ORDERED: ATROPINE SULFATE 0.1 MG/ML 10ML SYR IV PRN (12:04)
[2019-06-21] MEDS ORDERED: ONDANSETRON INJ 2 MG/ML 2 ML VIAL IV PRN ×2 (12:04→16:14)
[2019-06-21] MEDS ORDERED: LABETALOL HCL IV 5 MG/ML 20ML IV PRN (12:04)
[2019-06-21] MEDS ORDERED: BACITRACIN INJ 50,000 UNIT VIAL ONE (12:07)
[2019-06-21] MEDS ORDERED: BUPIVACAINE/EPINEPHRINE 0.5% MPF 1:200,000 10 ML VIAL ONE (12:07)
[2019-06-21] MEDS ORDERED: ACETAMINOPHEN 500 MG TAB ONE (12:07)
[2019-06-21] MEDS ORDERED: CeleBREX 200 MG CAP ONE (12:08)
[2019-06-21] MEDS ORDERED: GABAPENTIN 300 MG CAP ONE (12:08)
[2019-06-21] MEDS ORDERED: CEFAZOLIN 2,000 MG/15 ML IV PUSH IV ONE (12:08)
[2019-06-21] MEDS: GABAPENTIN 600 MG DOSE PO SCH (12:14)
[2019-06-21] MEDS ORDERED: LACTATED RINGER'S 1,000 ML IV SCH (13:00)
[2019-06-21] MEDS ORDERED: FLOSEAL HEMOSTATIC MATRIX 10ML TOP ONE (13:14)
--- NOTE | 2019-06-21 14:03 | Operative Report ---
Post Operative Report Pre & Post Diagnosis Operation Date: 06/21/19 12:35 Pre-Op Diagnosis: Lumbar Disc Herniation With Radiculopathy Post-Op Diagnosis: Lumbar Disc Herniation With Radiculopathy I identified the patient and participated in the time-out.: Yes Procedure Operation Date: 06/21/19 12:35 Actual Procedures #1 lumbar decompression bilateral medial facetectomies foraminotomies L4-L5 per #2 posterior spinal fusion L4-L5. #3 placed posterior instrumentation L4-L5. #4 interbody fusion L4-L5. #5 placed a peek cage 11 x 22 mm at L4-L5 per #6 placement of locally harvested morselized autograft in the posterior lateral gutters. #7 placement infuse collagen sponge, master graft in the posterior lateral gutters and ostial amp and interbody space. Surgeon Nate Lassiter DO Drawing Instructor Kaycee Bernard Estimated Blood Loss 50 Findings Consistent with Post-Op Diagnosis Specimens None Indications This is a 59-year-old male who presents with the above-mentioned diagnosis after failing course of nonoperative care continue marked decline in function we elected undergo the above-mentioned procedure. Description of Procedure Patient was met with identified informed consent obtained. Patient was then taken to the operative suite underwent intubation placed in a prone position the Chris table on top of the Gustavo frame. All bony prominences well-padded eyes inspected to ensure no external pressure placed upon the. This point the lumbar spine was prepped and draped in the normal sterile fashion. Sharp dissection with the assistance of Bovie cautery was performed down to and exposing the lamina and transverse processes of L4 and L5. From a caudal cephalad fashion complete laminectomy of L4 was performed including bilateral medial facetectomies foraminotomies. On the left and noted several free fragments of disc material occupying the entire neuroforamen causing significant compression of the exiting roots. They removed in their entirety. Pedicle screws were then placed in L4 and L5 bilaterally with assistance of fluoroscopy the process ryne placed. Believe a transforaminal approach on the left complete discectomy was performed endplates curetted to subcortical bleeding bone and 11 x 26 mm peek cage filled with osteo-bone graft tapped in position. The rods and locked in final position bilaterally. Transverse processes of L4 and L5 bur to subcortical bleeding bone. Infuse collagen sponge master graft local autograft placed in the posterior lateral gutters. 15 round SOPHIA drain inserted. Incision was then closed with 1 Vicryl in the fascia 2-0 Vicryl subcutaneously and 4 Monocryl for final skin closure. Steri-Strip sterile dressings placed. Patient will continue to PACU stable addition. Please note Kaycee Bernard was present throughout the procedure involved in patient positioning complex portions of the surgery and final skin closure. Lastly spinal cord monitoring was utilized that the procedure no changes noted. I attest to the content of the Intraoperative Record and any orders documented therein. Any exceptions are noted below.
--- NOTE | 2019-06-21 15:12 | Anesthesiology Progress Note ---
Date of Service June 21, 2019 Anesthesia Post Procedure Vital Signs Vital Signs: Temp Pulse Pulse Resp BP BP Pulse Ox 06/21/19 14:55 97.9 F 66 13 138/70 100 06/21/19 14:45 62 14 122/68 100 06/21/19 14:35 57 L 11 L 117/67 100 06/21/19 14:25 55 L 11 L 113/65 100 06/21/19 14:19 98.2 F 51 L 16 100/50 L 100 06/21/19 11:30 98.1 F 69 20 155/89 H 100 06/21/19 07:25 98.6 F 73 16 145/80 H 98 06/20/19 23:09 98.4 F 78 16 162/89 H 97 06/20/19 15:55 99.0 F 94 H 16 148/84 H 97 Pain Intensity Abdomen: Pain Intensity: 4 Left Hip: Pain Intensity: 5 Back: Pain Intensity: 5 Transfer of Care Handoff Completed per policy Notes Mental Status: alert / awake / arousable and participated in evaluation Patient Amnestic to Procedure: Yes Nausea / Vomiting: adequately controlled Pain: adequately controlled Airway Patency, RR, SpO2: stable & adequate BP & HR: stable & adequate Hydration State: stable & adequate Anesthetic Complications: no major complications apparent and Pt Satisfied with anesthetic care
[2019-06-21] MEDS ORDERED: PROMETHAZINE HCL 12.5 MG in SODIUM CHLORIDE 0.9% 50 ML IV PRN (16:14)
[2019-06-21] MEDS ORDERED: DO NOT ADMINISTER PNEUMOCOCCAL VACCINE PRN (16:14)
[2019-06-21] MEDS ORDERED: MAGNESIUM HYDROXIDE SUSP 30 ML UDC PO PRN (16:14)
[2019-06-21] MEDS ORDERED: LORazepam 0.5 MG TAB PO PRN (16:14)
[2019-06-21] MEDS ORDERED: FAMOTIDINE 20 MG TAB PO PRN (16:14)
[2019-06-21] MEDS ORDERED: bisacodyL 10 MG SUPP PR PRN (16:14)
[2019-06-21] MEDS ORDERED: TRAMADOL HCL 50 MG TABLET PO PRN (16:14)
[2019-06-21] MEDS ORDERED: DO NOT ADMINISTER FLU VACCINE PRN (16:14)
[2019-06-21] MEDS ORDERED: ONDANSETRON 4 MG OD TAB PO PRN (16:14)
[2019-06-21] MEDS ORDERED: KETOROLAC TROMETHAMINE 15 MG/ML VIAL IV SCH (16:14)
[2019-06-21] MEDS ORDERED: LORazepam 0.5 MG/1 ML VIAL IV PRN (16:14)
[2019-06-21] MEDS ORDERED: ALUMINUM/MAGNESIUM SUSP 30 ML UDC PO PRN (16:14)
[2019-06-21] MEDS ORDERED: ACETAMINOPHEN 1,000 MG/100 ML VIAL IV PRN (16:14)
[2019-06-21] MEDS ORDERED: METOCLOPRAMIDE HCL INJ 5 MG/ML 2 ML VIAL IV PRN (16:14)
[2019-06-21] MEDS ORDERED: SOD PHOSPHATE/SOD BIPHOSPHATE ENEMA 132 ML BTL PR PRN (16:14)
[2019-06-21] MEDS: LACTATED RINGER'S 1,000 ML IV SCH (17:19)
--- NOTE | 2019-06-21 18:02 | Hospitalist Progress Note ---
Date of Service June 21, 2019 Assessment & Plan (1) Small bowel obstruction: Presented with a small bowel obstruction which is now resolved Abd/pelvis CT showed moderate grade small bowel obstruction with probably transition point within the central abdomen, possibly secondary to underlying small bowel adhesions. No obstructing mass or lesion identified. Trace likely reactive abdominal pelvic ascites. He was treated with conservative management with NG tube to low intermittent suction, pain control, and IV fluids - Surgery consulted -likely from adhesive disease, his diet was advanced and he was tolerating a regular diet prior to his lumbar spine back surgery -NG tube back in place postop from lumbar spine surgery for 1 day to help prevent recurrent SBO or ileus given need for narcotics postop from back surgery -Follow clinically -Hopeful to remove NG tube tomorrow -Continue IV fluids -N.p.o. -Bowel regimen (2) Lumbar disc herniation with radiculopathy: Patient has been suffering with a left lower extremity radiculopathy and was scheduled for surgery originally on 06/20 prior to this admission for SBO as above After recovery from SBO as above, he has now undergone his lumbar surgery -Appreciate orthopedic consultation -Pain control-advised to use opioids sparingly given SBO. 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 No melena or bright red blood per rectum, no blood in NG tube -Follow CBC in the morning (4) SMA stenosis: With known SMA a 70% stenosis from admission in 03/2019 -As stated previously last admission, would recommend statin and possibly Plavix-defer to PCP as an outpatient -Should be followed by vascular surgery (5) DVT prophylaxis: SCDs Disposition-remain on medical/surgical floor Admission and Anticipated Discharge Date Admission Date: June 18, 2019 Anticipated date of discharge: 06/24/19 Subjective Patient had his back surgery today feels the pain in his left lower extremity is now completely resolved. Having some back pain at the surgical site. Denies chest pain or shortness of breath. He has an NG tube placed during surgery that is set to low intermittent suction to help prevent any postoperative ileus or recurrent small bowel obstruction. No flatus since the surgery. Review of Systems Review of Systems: All systems reviewed & are unremarkable except as noted in HPI & below Physical Exam Constitutional: WD/WN, vitals as above Eyes: + anicteric sclerae ENMT: external ear and nose normal, oropharynx normal (With NG tube in place) Neck: trachea midline, no thyromegaly Respiratory: normal respiratory effort, lungs clear to auscultation Cardiovascular: RRR, no murmur, no edema Chest (Breasts): Chest: normal inspection of chest Gastrointestinal (Abdomen): normal bowel sounds, soft, nontender, no hepatosplenomegaly Musculoskeletal: Extremities: extremities normal to inspection; no cyanosis and no clubbing Skin: no rashes, warm and dry Neurologic: moves all extremities and awake; no focal motor deficits Psychiatric: A+Ox3, euthymic affect Lymphatic: no lymphedema Results & Data ([facility]) Vital Signs (Past 12 Hours) Vital Signs Temp Pulse Pulse Resp BP BP Pulse Ox 06/21/19 17:18 37.0 C 80 18 128/78 99 06/21/19 16:45 37 C 77 16 156/81 H 100 06/21/19 16:15 37 C 78 18 134/74 100 06/21/19 15:45 68 12 131/72 100 06/21/19 15:35 69 14 128/70 100 06/21/19 15:25 36.6 C 64 18 132/75 100 06/21/19 15:15 36.6 C 71 18 134/74 100 06/21/19 15:05 36.6 C 72 17 137/76 100 06/21/19 14:55 36.6 C 66 13 138/70 100 06/21/19 14:45 62 14 122/68 100 06/21/19 14:35 57 L 11 L 117/67 100 06/21/19 14:25 55 L 11 L 113/65 100 06/21/19 14:19 36.8 C 51 L 16 100/50 L 100 06/21/19 11:30 36.7 C 69 20 155/89 H 100 06/21/19 07:25 37.0 C 73 16 145/80 H 98 Laboratory Results 03/23/20 03/23/20 03/23/20 Range/Units 04:40 04:40 04:40 WBC 3.39 L (4.8-10.8) K/uL RBC 3.41 L (4.7-6.1) M/uL Hgb 10.8 L (14.0-18.0) g/dL Hct 32.3 L (42-52) % MCV 94.7 (80-100) fL MCH 31.7 (25-34) pg MCHC 33.4 (32-36) g/dL RDW Std Deviation 45.6 (36.4-46.3) fL RDW Coeff of Cassidy 13.2 (11.5-14.5) % Plt Count 246 (130-400) K/uL MPV 9.2 (7.4-10.4) fL Immature Gran % (Auto) 0.0 % Neut % (Auto) 49.6 % Lymph % (Auto) 30.4 % [place] % (Auto) 15.6 % Eos % (Auto) 3.8 % Baso % (Auto) 0.6 % Immature Gran # (Auto) 0.00 (0.00-0.02) K/uL Neut # (Auto) 1.68 (1.4-6.5) K/uL Lymph # (Auto) 1.03 L (1.2-3.4) K/uL [place] # (Auto) 0.53 (0.11-0.59) K/uL Eos # (Auto) 0.13 (0-0.5) K/uL Baso # (Auto) 0.02 (0-0.2) K/uL Sodium 137 (136-145) mmol/L Potassium 3.9 (3.5-5.1) mmol/L Chloride 108 H (98-107) mmol/L Carbon Dioxide 25 (21-32) mmol/L Anion Gap 4.0 (3-11) BUN 13 (7-18) mg/dl Creatinine 0.83 (0.6-1.4) mg/dl Est Cr Clr Drug Dosing 94.9 ml/min Est GFR ( Amer) 111.6 Est GFR (Non-Af Amer) 96.3 BUN/Creatinine Ratio 15.3 (10-20) Glucose 77 (70-99) mg/dl Calcium 8.5 (8.5-10.1) mg/dl Blood Type A Positive Antibody Screen NEGATIVE PG Care Time/CCT Total # of Minutes Spent Total Time Spent with Patient: Total time spent is greater than 50% in coordination of care (as documented) at patient's floor/unit and/or counseling patient: Coding Level of Care Code 50600 Subseq Hosp Care Lvl 2 Diagnoses Small bowel obstruction K56.609 Lumbar disc herniation with radiculopathy M51.16 Anemia D64.9 SMA stenosis I77.1 DVT prophylaxis Z29.9
[2019-06-21] MEDS: DOCUSATE SODIUM/SENNA 50/8.6MG TAB PO SCH (20:09)
[2019-06-21] MEDS: CEFAZOLIN 1000MG 1,000 MG/7.5 ML SYR IV SCH (21:06)
[2019-06-22] MEDS: MoRPHine SULFATE 2 MG/ML CARP IV PRN ×3 (00:13→08:23)
[2019-06-22] MEDS: LACTATED RINGER'S 1,000 ML IV SCH (03:27)
[2019-06-22] MEDS: CEFAZOLIN 1000MG 1,000 MG/7.5 ML SYR IV SCH (03:27)
[2019-06-22] MEDS: POLYETHYLENE (MIRALAX) 17 GM PACK PO SCH ×4 (05:35→23:42)
[2019-06-22] MEDS: GABAPENTIN 600 MG DOSE PO SCH (05:44)
[2019-06-22 05:51] LABS: Basophils # (auto) 0.02 K/uL (0-0.2); Basophils % (auto) 0.5 %; Eosinophils # (auto) 0.09 K/uL (0-0.5); Eosinophils % (auto) 2.1 %; Hematocrit (blood only) 30.4 % (42-52); Hemoglobin 10.4 g/dL (14.0-18.0); Immature Granulocytes # (auto) 0.02 K/uL (0.00-0.02); Immature Granulocytes % (auto) 0.5 %; Lymphocytes # (auto) 0.64 K/uL (1.2-3.4); Lymphocytes % (auto) 14.8 %; Mean Corpuscular Hemoglobin 31.4 pg (25-34); Mean Corpuscular Hgb Conc 34.2 g/dL (32-36); Mean Corpuscular Volume 91.8 fL (80-100); Mean Platelet Volume 9.4 fL (7.4-10.4); Monocytes # (auto) 0.62 K/uL (0.11-0.59); Monocytes % (auto) 14.4 %; Neutrophils # (auto) 2.92 K/uL (1.4-6.5); Neutrophils % (auto) 67.7 %; Platelet Count 261 K/uL (130-400); RDW Coefficient of Variation 12.8 % (11.5-14.5); RDW Standard Deviation 43.2 fL (36.4-46.3); Red Blood Count 3.31 M/uL (4.7-6.1); White Blood Count 4.31 K/uL (4.8-10.8)
[2019-06-22 06:23] LABS: BUN Creatinine Ratio 14.9 (10-20); Calcium 8.6 mg/dl (8.5-10.1); Creatinine Clr Calc Pharmacy 93.8 ml/min; Est GFR (African American) 111.1; Est GFR (Non-African American) 95.8; Potassium 3.5 mmol/L (3.5-5.1)
[2019-06-22] MEDS: FAMOTIDINE 20 MG in SYRINGE 3 ML IV SCH ×2 (08:46→20:29)
--- NOTE | 2019-06-22 10:09 | Anesthesiology Progress Note ---
Date of Service June 22, 2019 Anesthesia Post Procedure Vital Signs Vital Signs: Temp Pulse Pulse Resp BP BP Pulse Ox 06/22/19 07:32 37.4 C 78 18 162/87 H 97 06/22/19 03:33 37 C 75 16 146/81 H 98 06/21/19 23:41 37.0 C 79 20 142/79 H 98 06/21/19 19:27 37.1 C 80 18 154/81 H 100 06/21/19 18:17 36.6 C 75 16 127/70 96 06/21/19 17:18 37.0 C 80 18 128/78 99 06/21/19 16:45 37 C 77 16 156/81 H 100 06/21/19 16:15 37 C 78 18 134/74 100 06/21/19 15:45 68 12 131/72 100 06/21/19 15:35 69 14 128/70 100 06/21/19 15:25 36.6 C 64 18 132/75 100 06/21/19 15:15 36.6 C 71 18 134/74 100 06/21/19 15:05 36.6 C 72 17 137/76 100 06/21/19 14:55 36.6 C 66 13 138/70 100 06/21/19 14:45 62 14 122/68 100 06/21/19 14:35 57 L 11 L 117/67 100 06/21/19 14:25 55 L 11 L 113/65 100 06/21/19 14:19 36.8 C 51 L 16 100/50 L 100 06/21/19 11:30 36.7 C 69 20 155/89 H 100 Pain Intensity Abdomen: Pain Intensity: 4 Left Hip: Pain Intensity: 5 Back: Pain Intensity: 8 Notes Mental Status: alert / awake / arousable Patient Amnestic to Procedure: Yes Nausea / Vomiting: adequately controlled Pain: adequately controlled Airway Patency, RR, SpO2: stable & adequate BP & HR: stable & adequate Hydration State: stable & adequate Anesthetic Complications: no major complications apparent
--- NOTE | 2019-06-22 10:40 | Orthopedic Progress Note ---
Date of Service June 22, 2019 Assessment & Plan (1) Lumbar disc herniation with radiculopathy: At this time will initiate physical therapy monitor his SOPHIA output hopefully discharge over the next few days. I am going to discontinue his NG tube and begin the clear liquid diet. Present on Admission?: Yes Admission and Anticipated Discharge Date Admission Date: June 18, 2019 Anticipated date of discharge: 06/24/19 Subjective Patient is back pain is controlled leg symptoms markedly improved. Physical Exam Physical Exam: Good strength testing is sitting in the chair. Results & Data ([facility]) Vital Signs (Past 12 Hours) Vital Signs Temp Pulse Resp BP BP Pulse Ox 06/22/19 07:32 37.4 C 78 18 162/87 H 97 06/22/19 03:33 37 C 75 16 146/81 H 98 06/21/19 23:41 37.0 C 79 20 142/79 H 98
[2019-06-22] MEDS: HYDROmorphone INJ 1 MG/ML SYRINGE IV PRN ×3 (12:09→20:29)
--- NOTE | 2019-06-22 15:24 | Hospitalist Progress Note ---
Date of Service June 22, 2019 Assessment & Plan (1) Small bowel obstruction: Presented with a small bowel obstruction which is now resolved Abd/pelvis CT showed moderate grade small bowel obstruction with probably transition point within the central abdomen, possibly secondary to underlying small bowel adhesions. No obstructing mass or lesion identified. Trace likely reactive abdominal pelvic ascites. He was treated with conservative management with NG tube to low intermittent suction, pain control, and IV fluids - Surgery consulted -likely from adhesive disease, his diet was advanced and he was tolerating a regular diet prior to his lumbar spine back surgery -NG tube back in place postop from lumbar spine surgery for 1 day to help prevent recurrent SBO or ileus given need for narcotics postop from back surgery-now removed and jose clears diet -advance diet as tolerated, watch for flatus, BM -Follow clinically -dc IVFs -Bowel regimen (2) Lumbar disc herniation with radiculopathy: Patient has been suffering with a left lower extremity radiculopathy and was scheduled for surgery originally on 06/20 prior to this admission for SBO as above After recovery from SBO as above, he has now undergone his lumbar surgery Doing well post-op, with some expected LBP -Appreciate orthopedic consultation -Pain control-advised to use opioids sparingly given SBO. 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 NGT out and tolerating clear liquids diet. No abd pain, no nausea. No flatus passed yet. Back pain still present but he is extremely happy about the lack of LLE radicular pains now. He ambulated the sanchez s twice today and felt good with this. Review of Systems Review of Systems: All systems reviewed & are unremarkable except as noted in HPI & below (denies CP, SPOB, lightheadedness, headache) Physical Exam Constitutional: WD/WN, vitals as above Eyes: + anicteric sclerae Neck: trachea midline, no thyromegaly Respiratory: normal respiratory effort, lungs clear to auscultation Cardiovascular: RRR, no murmur, no edema Chest (Breasts): Chest: normal inspection of chest Gastrointestinal (Abdomen): normal bowel sounds, soft, nontender, no hepatosplenomegaly Musculoskeletal: Extremities: extremities normal to inspection; no cyanosis and no clubbing Skin: no rashes, warm and dry Neurologic: moves all extremities and awake; no focal motor deficits Psychiatric: A+Ox3, euthymic affect Lymphatic: no lymphedema Results & Data ([facility]) Vital Signs (Past 12 Hours) Vital Signs Temp Pulse Resp BP BP Pulse Ox 06/22/19 12:29 37.3 C 75 16 152/88 H 99 06/22/19 07:32 37.4 C 78 18 162/87 H 97 06/22/19 03:33 37 C 75 16 146/81 H 98 Laboratory Results 06/22/19 06/22/19 Range/Units 05:00 05:00 WBC 4.31 L (4.8-10.8) K/uL RBC 3.31 L (4.7-6.1) M/uL Hgb 10.4 L (14.0-18.0) g/dL Hct 30.4 L (42-52) % MCV 91.8 (80-100) fL MCH 31.4 (25-34) pg MCHC 34.2 (32-36) g/dL RDW Std Deviation 43.2 (36.4-46.3) fL RDW Coeff of Cassidy 12.8 (11.5-14.5) % Plt Count 261 (130-400) K/uL MPV 9.4 (7.4-10.4) fL Immature Gran % (Auto) 0.5 % Neut % (Auto) 67.7 % Lymph % (Auto) 14.8 % [place] % (Auto) 14.4 % Eos % (Auto) 2.1 % Baso % (Auto) 0.5 % Immature Gran # (Auto) 0.02 (0.00-0.02) K/uL Neut # (Auto) 2.92 (1.4-6.5) K/uL Lymph # (Auto) 0.64 L (1.2-3.4) K/uL [place] # (Auto) 0.62 H (0.11-0.59) K/uL Eos # (Auto) 0.09 (0-0.5) K/uL Baso # (Auto) 0.02 (0-0.2) K/uL Sodium 136 (136-145) mmol/L Potassium 3.5 (3.5-5.1) mmol/L Chloride 103 (98-107) mmol/L Carbon Dioxide 26 (21-32) mmol/L Anion Gap 7.0 (3-11) BUN 12 (7-18) mg/dl Creatinine 0.84 (0.6-1.4) mg/dl Est Cr Clr Drug Dosing 93.8 ml/min Est GFR ( Amer) 111.1 Est GFR (Non-Af Amer) 95.8 BUN/Creatinine Ratio 14.9 (10-20) Glucose 66 L (70-99) mg/dl Calcium 8.6 (8.5-10.1) mg/dl PG Care Time/CCT Total # of Minutes Spent Total Time Spent with Patient: Total time spent is greater than 50% in coordination of care (as documented) at patient's floor/unit and/or counseling patient: Coding Level of Care Code 08901 Subseq Hosp Care Lvl 2 Diagnoses Small bowel obstruction K56.609 Lumbar disc herniation with radiculopathy M51.16 Anemia D64.9 SMA stenosis I77.1 DVT prophylaxis Z29.9
[2019-06-22] MEDS: DOCUSATE SODIUM/SENNA 50/8.6MG TAB PO SCH (20:28)
[2019-06-22] MEDS ORDERED: Nursing to Pharmacy Communication ONE (22:07)
[2019-06-22] MEDS: HYDROmorphone INJ 0.5 MG/0.5 ML SYR IV PRN (23:42)
[2019-06-23] MEDS: HYDROmorphone INJ 0.5 MG/0.5 ML SYR IV PRN (04:11)
[2019-06-23 05:30] LABS: Basophils # (auto) 0.02 K/uL (0-0.2); Basophils % (auto) 0.5 %; Eosinophils # (auto) 0.21 K/uL (0-0.5); Eosinophils % (auto) 4.9 %; Hematocrit (blood only) 28.7 % (42-52); Immature Granulocytes # (auto) 0.01 K/uL (0.00-0.02); Immature Granulocytes % (auto) 0.2 %; Lymphocytes # (auto) 0.79 K/uL (1.2-3.4); Lymphocytes % (auto) 18.3 %; Mean Corpuscular Hemoglobin 32.1 pg (25-34); Mean Corpuscular Hgb Conc 34.8 g/dL (32-36); Monocytes # (auto) 0.77 K/uL (0.11-0.59); Monocytes % (auto) 17.8 %; Neutrophils # (auto) 2.52 K/uL (1.4-6.5); Neutrophils % (auto) 58.3 %; Platelet Count 268 K/uL (130-400); Red Blood Count 3.12 M/uL (4.7-6.1); White Blood Count 4.32 K/uL (4.8-10.8)
[2019-06-23 06:08] LABS: BUN Creatinine Ratio 9.2 (10-20); Calcium 8.5 mg/dl (8.5-10.1); Creatinine Clr Calc Pharmacy 107.9 ml/min; Est GFR (African American) 117.7; Est GFR (Non-African American) 101.5; Potassium 3.3 mmol/L (3.5-5.1)
[2019-06-23] MEDS: POLYETHYLENE (MIRALAX) 17 GM PACK PO SCH ×3 (06:09→17:54)
[2019-06-23] MEDS: ACETAMINOPHEN 500 MG TAB PO PRN ×2 (08:30→22:08)
[2019-06-23] MEDS: OXYCODONE HCL IR 5 MG TAB (IMMEDIATE RELEASE) PO PRN ×4 (08:31→22:08)
[2019-06-23] MEDS: FAMOTIDINE 20 MG in SYRINGE 3 ML IV SCH ×2 (08:36→20:18)
--- NOTE | 2019-06-23 12:00 | Orthopedic Progress Note ---
Date of Service June 23, 2019 Assessment & Plan (1) Lumbar disc herniation with radiculopathy: At this time we will continue ambulation as tolerated. Anticipate discharge home tomorrow. I will advance his diet. Present on Admission?: Yes Admission and Anticipated Discharge Date Admission Date: June 18, 2019 Anticipated date of discharge: 06/24/19 Subjective Patient's back pain is controlled he has no abdominal discomfort. Leg pain markedly improved. Ambulating well. Physical Exam Physical Exam: Patient is in a chair at the bedside. Is good strength testing. Abdomen soft. Results & Data ([facility]) Vital Signs (Past 12 Hours) Vital Signs Temp Pulse Resp BP Pulse Ox 06/23/19 06:45 37.1 C 73 18 136/81 97
--- NOTE | 2019-06-23 13:43 | Hospitalist Progress Note ---
Date of Service June 23, 2019 Assessment & Plan (1) Small bowel obstruction: - Presented with a SBO - now resolved -- Tx conservatively with NGT; pain control; IV fluids -- NGT placed post back surgery for preventive measures but since removed - CT on admission - moderate grade SBO with probable transition point within the central abdomen, possibly secondary to underlying small bowel adhesions - no obstructing mass or lesion identified; trace, likely reactive, abdominal pelvic ascites - Advance diet to low fiber/gluten free; continue bowel regimen - can likely de- escalate frequency of Miralax; encourage ambulation but be mindful of surgery - Gen Surg consulted - likely adhesional disease; no surgical needs at this time (2) Lumbar disc herniation with radiculopathy: - Has been suffering with a LLE radiculopathy; now S/P lumbar surgery - Doing well post-operatively; pain better controlled today and working with therapy - anticipates return home - Discussed pain medications and being mindful of opiate-induced constipation; Toradol was D/Cd due to H/O gastrojejunal anastomosis ulceration/perforation (Mar 2019) - Orthopedics following - monitoring SOPHIA drain output and anticipates being stable for D/C tomorrow from an orthopedic standpoint (3) Anemia: - Baseline appears around 11 - was 12.8 on admission and slightly lower at 10 today - likely related to surgical losses - serosang fluid in SOPHIA drain but no signs of bleeding - Continue to monitor (4) SMA stenosis: - 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 from admission in 03/2019 -As stated previously last admission, would recommend statin and possibly Plavix-defer to PCP as an outpatient -Should be followed by vascular surgery (5) DVT prophylaxis: SCDs Disposition- anticipate D/C tomorrow to home Admission and Anticipated Discharge Date Admission Date: June 18, 2019 Anticipated date of discharge: 06/24/19 Supervising Physician Co-Signing Physician Notes PA Supervision Note: I did not personally see or examine the patient today, but I verified all jean points of MALU Call's assessment and plan with the following exceptions/additions: K+ mildly low but will likely improve today with increased po intake. -follow BMP in AM Subjective Reports feeling well today. Reports back pain is much better today and thinks he may have been overdoing it with the frequent walking. He is tolerating a clear liquid diet and passing flatus and had a small BM this AM. Abdomen is soft and no pain. He reports no new symptoms and is eager to get home tomorrow. Review of Systems Constitutional: no fever and no chills Respiratory: no cough and no dyspnea Cardiovascular: no chest pain, no lightheadedness and no edema Gastrointestinal: no abdominal pain, no bloating, no nausea, no vomiting, no constipation and no diarrhea/loose stools Genitourinary: no dysuria Integumentary: no rash Neurologic: no tingling and no numbness Physical Exam Constitutional: WD/WN, vitals as above Eyes: + anicteric sclerae ENMT: Ears: no hearing impairment Neck: trachea midline Respiratory: normal respiratory effort, lungs clear to auscultation Cardiovascular: RRR, no murmur, no edema Gastrointestinal (Abdomen): Inspection/Auscultation: normal bowel sounds Percussion/Palpation: abdomen soft; abdomen nontender Musculoskeletal: Head/Neck/Chest: normocephalic and head atraumatic Gait: normal gait Skin: no rashes, warm and dry incision site with dressing applied with dried old drainage that is marked and not expanding; SOPHIA drain present Neurologic: moves all extremities Psychiatric: A+Ox3, euthymic affect Results & Data Results & Data ([facility]) Vital Signs (Past 12 Hours) Vital Signs Temp Pulse Resp BP Pulse Ox 06/23/19 06:45 37.1 C 73 18 136/81 97 PG Care Time/CCT Total # of Minutes Spent Total Time Spent with Patient: Total time spent is greater than 50% in coordination of care (as documented) at patient's floor/unit and/or counseling patient: Coding Level of Care Code 39186 Subseq Hosp Care Lvl 3 Diagnoses Small bowel obstruction K56.609 Lumbar disc herniation with radiculopathy M51.16 Anemia D64.9 SMA stenosis I77.1 DVT prophylaxis Z29.9
[2019-06-23] MEDS ORDERED: Nursing to Pharmacy Communication ONE (20:14)
[2019-06-23] MEDS: DOCUSATE SODIUM/SENNA 50/8.6MG TAB PO SCH (20:14)
[2019-06-23] MEDS: LORazepam 0.5 MG TAB PO PRN (23:39)
[2019-06-24 05:33] LABS: Basophils # (auto) 0.03 K/uL (0-0.2); Basophils % (auto) 0.9 %; Eosinophils # (auto) 0.21 K/uL (0-0.5); Eosinophils % (auto) 6.3 %; Hematocrit (blood only) 28.5 % (42-52); Hemoglobin 9.7 g/dL (14.0-18.0); Immature Granulocytes # (auto) 0.01 K/uL (0.00-0.02); Immature Granulocytes % (auto) 0.3 %; Lymphocytes # (auto) 0.77 K/uL (1.2-3.4); Mean Corpuscular Hemoglobin 31.9 pg (25-34); Mean Corpuscular Volume 93.8 fL (80-100); Monocytes # (auto) 0.73 K/uL (0.11-0.59); Monocytes % (auto) 21.8 %; Neutrophils % (auto) 47.7 %; Platelet Count 265 K/uL (130-400); RDW Coefficient of Variation 13.1 % (11.5-14.5); Red Blood Count 3.04 M/uL (4.7-6.1); White Blood Count 3.35 K/uL (4.8-10.8)
[2019-06-24] MEDS: OXYCODONE HCL IR 5 MG TAB (IMMEDIATE RELEASE) PO PRN ×2 (05:42→10:53)
[2019-06-24 06:07] LABS: Calcium 8.5 mg/dl (8.5-10.1); Creatinine Clr Calc Pharmacy 102.3 ml/min; Est GFR (African American) 115.1; Est GFR (Non-African American) 99.3; Potassium 3.8 mmol/L (3.5-5.1)
--- NOTE | 2019-06-24 09:10 | Discharge Summary ---
Date of Service June 24, 2019 Admission HPI Per Admitting Provider This is a 59-year-old male with presents with markedly worsening back left leg pain and weakness. He did fail nonoperative care and is here for urgent surgical intervention. Principal Diagnosis Lumbar spinal stenosis with radiculopathy and herniated was pulposis L4-5 Discharge Data Allergies Allergy/AdvReac Type Severity Reaction Status Date / Time gluten Allergy Severe Rash Verified 06/21/19 11:40 Consultations 06/18/19 20:05 ED Decision to Admit Stat 06/18/19 22:07 Consult General Surgery Routine 06/23/19 10:12 Consult Orthopedic Surgery Routine Procedures Performed Operation Date: 06/21/19 12:35 Actual Procedures p L4-L5 Decompression and Fusion, Application of Bone Morphogenetic Protein, Application of Osteoamp Allograft, Spinal Cord Monitoring(Not Applicable) - Nate Lassiter DO Ordered Studies 06/18/19 17:31 CT abd pelvis wo con Stat Hospital Course (1) Lumbar disc herniation with radiculopathy: Patient was admitted over the weekend with evidence of a small bowel obstruction. This resolved appropriately over the course of 2 days. Subsequently he is cleared for surgery and on Friday he underwent lumbar decompression fusion. He tolerated well second orthopedic for postoperative. Postop day #1 his leg symptoms markedly improved. Ambulation markedly improved. NG tube removed. He is able to tolerate a soft diet and progressed appropriately throughout the week. Bowels working well. Leg symptoms improved. Strength improved. Subsequently discharged home. Discharge orders instructions from the chart for further view. Total Time Total Time Spent Total Time Spent (In Minutes): 30 minutes Discharge Plan Discharge Items Patient Disposition: Home - Self-Care Reason For Visit: SBO Discharge Diagnosis: Lumbar spinal stenosis with radiculopathy Activity: As commented below Non-emergency contact: Primary Care Provider Call non-emergency contact if: you have any medication questions Follow-up/Referrals: Tyesha Jones MD [Primary Care Provider] - Diet: Gluten Free and Low Fiber Addtl Attending Provider Instructions: ACTIVITY RECOMMENDATIONS: SELF CARE INSTRUCTIONS AFTER THORACIC/LUMBAR FUSIONS 1. You may walk to your tolerance. It is good exercise for your legs and back. Expect some back and intermittent leg aches and pains. 2. You may perform "counter-top" level activities (make a sandwich, jayshree with a project, etc.). 3. No bending or lifting of more than 10 pounds or back twisting of any nature (roll like a log when turning in bed). 4. You may ride in a car for 20-30 minutes at a time. No driving until after your first visit with your doctor. 5. Frequent changes of position and restricting sitting to 30 minutes at a time will help limit the amount of back spasms and stiffness you may experience. 6. You may discontinue the use of ambulatory aids (cane, crutches, etc.) once your strength and confidence allow. 7. You may financial advisor the shower and let water strike your incision when you arrive home at least once daily. Do not take a tub bath, sit in a hot tub or go into a swimming pool until after your first recheck in the office. SPECIAL CARE INSTRUCTIONS: VERY IMPORTANT TO READ AND REVIEW A. Your surgical incision has been closed with a cosmetic suture under the skin that will dissolve in about 6 weeks. In 14 days, you can use a pair of clean scissors and cut the suture that is left outside of the skin at t he ends of your incision. 1. The small skin tapes can be removed 7 days after surgery if they have not fallen off by that point. 2. You may keep the wound open to air as much as possible to promote healing after post-op day number 5 unless told otherwise by your doctor. 3. If you think the wound looks like it is becoming infected (redness or worsening drainage) and/or you are experiencing fever, chill or worsening back pain and muscle spasms, contact the office so that we may evaluate you as soon as possible. B. Complications are uncommon, but please contact us if you have any signs or symptoms of: 1. wound infection (fever higher than 102.5 degrees F, redness, separation of wound, drainage, or increasing pain from the incision) 2. blood clots in legs (pain, swelling, redness and warmth in legs) 3. urinary tract infection (fever higher than 102.5 degrees F, burning upon urination or increased frequency of urination) 4. nerve problems (inability to walk on your toes or heels, numbness, loss of bowel or bladder control) 5. any other symptoms that concern you C. Please call the office at if you have any concerns or questions about your operation or recovery. D. No smoking! Smoking drastically decreases the chance of a solid fusion. E. Do not take any anti-inflammatory medications (Indocin, Advil, Motrin, Aspirin, Naprosyn, etc.) as these may inhibit the chance of a solid fusion. Tylenol is okay to take for pain. MANAGING PAIN AFTER SPINAL SURGERY 1. Narcotic medication is intended for short-term use and will be provided for surgical pain. Surgical pain usually lasts for a period of 4-6 weeks. Narcotic medication includes Percocet, Vicodin, Darvocet, Tylenol #3 or Lortab. 2. Longer-term pain is more appropriately treated with non-narcotic medication such as Tylenol ES. 3. Muscle spasm is not appropriately treated with narcotics. Muscle relaxers such as Soma, Flexeril or Skelaxin can be used along with Tylenol ES. 4. Remember that we all live with some "aches and pains". This is not unusual or uncommon after an injury or as we get older. a. Back pain is expected and may include muscle spasms for 4 to 6 weeks after surgery. The pain should gradually improve. If the pain worsens for no apparent reason, please contact the office. b. Intermittent leg pain may also be experienced and should not be concerned about unless it worsens for no apparent reason. If so, please contact the office. 5. We will provide appropriate medication within the normal guidelines of their prescribed use. We will also be very cautious and aware of potential abuse and extended duration of patients' medication needs. a. Pain medications are for your comfort and to assist with sleep and rest so that the tissue can heal. They are not provided in order to return to normal activity and should not be used through the day. To do so or worsening pain at night can result from ongoing tissue damage and development of tolerance to the prescribed medicine. 6. Please allow 2-3 days to process refills. Prescriptions will not be mailed but must be picked up at the office. FOLLOW UP VISIT: Keep your scheduled follow-up appointment. Any questions, please call the office at . Small Bowel Obstruction: - Recommend to continue to monitor your bowel movements. Especially when taking pain medication as this can lead to opiate-induced constipation. - You can continue Miralax as needed to help promote bowel movements. You can take this once or twice a day if you don't have a bowel movement in a couple days. - Recommend a low fiber/gluten free diet for about 2-3 weeks to make it easy to digest foods and not to overly bulk up the stools at this time. - Recommend to continue to walk as much as you can, but also take breaks to not worsen back pain. Back Surgery: - Please follow the directions above in regards to you back surgery. Your surgeon sent pain medication for you. Pending Studies at Discharge: No Stand-Alone Forms: My [facility], Smoking Cessation Medications and DC Order Prescriptions: New tramadol 50 mg tablet 50 mg PO Q6H PRN (Reason: pain, moderate) Qty: 15 RF: 0 oxycodone 5 mg tablet 5 mg PO Q6H PRN (Reason: pain, severe) Qty: 15 RF: 0 Continued pantoprazole 40 mg tablet,delayed release (DR/EC) 40 mg PO BID Qty: 180 RF: 1 hydrocodone-acetaminophen 5-325 mg tablet 1 tab PO Q6H PRN (Reason: pain) Qty: 30 RF: 0 cyclobenzaprine 10 mg tablet 10 mg PO TID PRN (Reason: muscle spasm) Qty: 30 RF: 0 acetaminophen [Tylenol Extra Strength] 500 mg Tablet 500 - 1,000 mg PO Q6H PRN (Reason: Pain) RF: 0 multivitamin Tablet 1 tab PO QAM RF: 0 magnesium oxide 400 mg magnesium Tablet 400 mg PO DAILY RF: 0 Discharge Orders: Discharge Order (Routine); Ordered 06/24/19 Ordered By: Nate Lassiter Admission Data Admit Date/Time: 06/18/19 21:00 Attending Provider: Chela Reyes Admit Provider: Elder Prado Primary Care Provider: Tyesha Jones Other Providers: Roly Brennan ; Shreyas Lemos ; Forest Harper ; Nate Lassiter
[2019-06-24] MEDS: FAMOTIDINE 20 MG in SYRINGE 3 ML IV SCH (09:14)
[2019-06-24] MEDS: ACETAMINOPHEN 500 MG TAB PO PRN (10:53)
--- NOTE | 2019-06-24 11:34 | Discharge Summary ---
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 Last similar occurrence was in Mar when he had the bowel perf. Pain described as sharp pain that waxed and waned, no radiation. 10/10 severity upon ED arrival, 6/10 at time of my evaluation. Alleviated a little by walking around. No known exacerbating factors. Pt had 2 BM's (nonbloody) SUPERVISOR RIDES elif t did not help sxs. Tried taking tums, pepto without relief. Last oral intake was 930 AM breakfast (toast, eggs). Associated nausea, diaphoresis and feelings of gassiness. Otherwise denies fever, chills, vomiting, diarrhea, constipation, ingestion of suspicious foods, sick contacts, CP, SOB, SANCHEZ, urinary sxs. Pt with no other additional complaints or concerns. Of note, pt was scheduled to have L4-L5 Decompression and Fusion surgery on Fri06/21/[address] Lassiter. Abd/Pelvis CT: Limited exam without the use of intravenous or enteric contrast. There is at least a moderate grade small bowel obstruction with probable transition point within the central abdomen, possibly secondary to underlying small bowel adhesions. No obstructing mass or lesion identified. Trace likely reactive abdominal pelvic ascites. No pneumatosis or pneumoperitoneum. Postoperative changes of prior Whipple procedure. Pertinent Labs: WBC 13.6, Na 134, Lipase 55 (low) ER Course: IV Morphine 8mg x3, IV Benadryl, IV Zofran, NSS Social: Tobacco- 5-7 cigs/day. Alcohol: social drinker. Cutting back on both. 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), and repair of perforated gastrojejunal anastomosis via Tawanda patch (Mar 2019) Principal Diagnosis Small Bowel Obstruction Lumbar radiculopathy Discharge Exam Constitutional WD/WN, vitals as above Eyes + anicteric sclerae ENMT Ears: no hearing impairment Neck trachea midline Respiratory normal respiratory effort, lungs clear to auscultation Cardiovascular RRR, no murmur, no edema Gastrointestinal (Abdomen) Inspection/Auscultation: normal bowel sounds Percussion/Palpation: abdomen soft; abdomen nontender Musculoskeletal Head/Neck/Chest: normocephalic and head atraumatic Gait: normal gait Dressing applied with dried drainage that has been previously marked and not expanded; SOPHIA still present on my exam Skin no rashes, warm and dry Neurologic moves all extremities Psychiatric A+Ox3, euthymic affect Discharge Data Allergies Allergy/AdvReac Type Severity Reaction Status Date / Time gluten Allergy Severe Rash Verified 06/21/19 11:40 Consultations 06/18/19 20:05 ED Decision to Admit Stat 06/18/19 22:07 Consult General Surgery Routine 06/23/19 10:12 Consult Orthopedic Surgery Routine Procedures Performed Operation Date: 06/21/19 12:35 Actual Procedures p L4-L5 Decompression and Fusion, Application of Bone Morphogenetic Protein, Application of Osteoamp Allograft, Spinal Cord Monitoring(Not Applicable) - Nate Lassiter DO Ordered Studies 06/18/19 17:31 CT abd pelvis wo con Stat Hospital Course (1) Small bowel obstruction: - Presented with a SBO - now resolved -- Tx conservatively with NGT; pain control; IV fluids -- NGT placed post back surgery for preventive measures but since removed - CT on admission - moderate grade SBO with probable transition point within the central abdomen, possibly secondary to underlying small bowel adhesions - no obstructing mass or lesion identified; trace, likely reactive, abdominal pelvic ascites - Advanced diet to low fiber/gluten free and tolerating; continue bowel regimen as needed on D/C - Gen Surg consulted - likely adhesional disease; no surgical needs at this time (2) Lumbar disc herniation with radiculopathy: - Has been suffering with a LLE radiculopathy; now S/P lumbar surgery - Doing well post-operatively; pain better controlled today and working with therapy - anticipates return home - Discussed pain medications and being mindful of opiate-induced constipation; Toradol was D/Cd due to H/O gastrojejunal anastomosis ulceration/perforation (Mar 2019) - Orthopedics following - will F/U as outpatient (3) Anemia: - Baseline appears around 11 - was 12.8 on admission and slightly lower around 10 - likely related to surgical losses - serosang fluid in SOPHIA drain but no signs of bleeding (4) SMA stenosis: - 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 from admission in 03/2019 -As stated previously last admission, would recommend statin and possibly Plavix-defer to PCP as an outpatient -Should be followed by vascular surgery (5) DVT prophylaxis: SCDs Disposition- anticipate D/C tomorrow to home Total Time Total Time Spent Total Time Spent (In Minutes): Greater than 30 minutes Discharge Plan Discharge Items Patient Disposition: Home - Self-Care Reason For Visit: SBO Discharge Diagnosis: Lumbar spinal stenosis with radiculopathy Small bowel obstruction Condition on Discharge: Good Activity: As commented below Non-emergency contact: Primary Care Provider Call non-emergency contact if: you have any medication questions Follow-up/Referrals: Tyesha Jones MD [Primary Care Provider] - Diet: Gluten Free and Low Fiber Addtl Attending Provider Instructions: ACTIVITY RECOMMENDATIONS: SELF CARE INSTRUCTIONS AFTER THORACIC/LUMBAR FUSIONS 1. You may walk to your tolerance. It is good exercise for your legs and back. Expect some back and intermittent leg aches and pains. 2. You may perform "counter-top" level activities (make a sandwich, jayshree with a project, etc.). 3. No bending or lifting of more than 10 pounds or back twisting of any nature (roll like a log when turning in bed). 4. You may ride in a car for 20-30 minutes at a time. No driving until after your first visit with your doctor. 5. Frequent changes of position and restricting sitting to 30 minutes at a time will help limit the amount of back spasms and stiffness you may experience. 6. You may discontinue the use of ambulatory aids (cane, crutches, etc.) once your strength and confidence allow. 7. You may manufacturing process technician the shower and let water strike your incision when you arrive home at least once daily. Do not take a tub bath, sit in a hot tub or go into a swimming pool until after your first recheck in the office. SPECIAL CARE INSTRUCTIONS: VERY IMPORTANT TO READ AND REVIEW A. Your surgical incision has been closed with a cosmetic suture under the skin that will dissolve in about 6 weeks. In 14 days, you can use a pair of clean scissors and cut the suture that is left outside of the skin at the ends of your incision. 1. The small skin tapes can be removed 7 days after surgery if they have not fallen off by that point. 2. You may keep the wound open to air as much as possible to promote healing after post-op day number 5 unless told otherwise by your doctor. 3. If you think the wound looks like it is becoming infected (redness or worsening drainage) and/or you are experiencing fever, chill or worsening back pain and muscle spasms, contact the office so that we may simona luate you as soon as possible. B. Complications are uncommon, but please contact us if you have any signs or symptoms of: 1. wound infection (fever higher than 102.5 degrees F, redness, separation of wound, drainage, or increasing pain from the incision) 2. blood clots in legs (pain, swelling, redness and warmth in legs) 3. urinary tract infection (fever higher than 102.5 degrees F, burning upon urination or increased frequency of urination) 4. nerve problems (inability to walk on your toes or heels, numbness, loss of bowel or bladder control) 5. any other symptoms that concern you C. Please call the office at if you have any concerns or questions about your operation or recovery. D. No smoking! Smoking drastically decreases the chance of a solid fusion. E. Do not take any anti-inflammatory medications (Indocin, Advil, Motrin, As pirin, Naprosyn, etc.) as these may inhibit the chance of a solid fusion. Tylenol is okay to take for pain. MANAGING PAIN AFTER SPINAL SURGERY 1. Narcotic medication is intended for short-term use and will be provided for surgical pain. Surgical pain usually lasts for a period of 4-6 weeks. Narcotic medication includes Percocet, Vicodin, Darvocet, Tylenol #3 or Lortab. 2. Longer-term pain is more appropriately treated with non-narcotic medication such as Tylenol ES. 3. Muscle spasm is not appropriately treated with narcotics. Muscle relaxers such as Soma, Flexeril or Skelaxin can be used along with Tylenol ES. 4. Remember that we all live with some "aches and pains". This is not unusual or uncommon after an injury or as we get older. a. Back pain is expected and may include muscle spasms for 4 to 6 weeks after surgery. The pain should gradually improve. If the pain worsens for no apparent reason, please contact the office. b. Intermittent leg pain may also be experienced and should not be concerned about unless it worsens for no apparent reason. If so, please contact the office. 5. We will provide appropriate medication within the normal guidelines of their prescribed use. We will also be very cautious and aware of potential abuse and extended duration of patients' medication needs. a. Pain medications are for your comfort and to assist with sleep and rest so that the tissue can heal. They are not provided in order to return to normal activity and should not be used through the day. To do so or worsening pain at night can result from ongoing tissue damage and development of tolerance to the prescribed medicine. 6. Please allow 2-3 days to process refills. Prescriptions will not be mailed but must be picked up at the office. FOLLOW UP VISIT: Keep your scheduled follow-up appointment. Any questions, please call the office at . Small Bowel Obstruction: - Recommend to continue to monitor your bowel movements. Especially when taking pain medication as this can lead to opiate-induced constipation. - You can continue Miralax as needed to help promote bowel movements. You can take this once or twice a day if you don't have a bowel movement in a couple days. - Recommend a low fiber/gluten free diet for about 2-3 weeks to make it easy to digest foods and not to overly bulk up the stools at this time. - Recommend to continue to walk as much as you can, but also take breaks to not worsen back pain. Back Surgery: - Please follow the directions above in regards to you back surgery. Your surgeon sent pain medication for you. Pending Studies at Discharge: No Stand-Alone Forms: My [facility], Opioid Pain Management, Smoking Cessation Medications and DC Order Prescriptions: New tramadol 50 mg tablet 50 mg PO Q6H PRN (Reason: pain, moderate) Qty: 15 RF: 0 oxycodone 5 mg tablet 5 mg PO Q6H PRN (Reason: pain, severe) Qty: 15 RF: 0 Continued pantoprazole 40 mg tablet,delayed release (DR/EC) 40 mg PO BID Qty: 180 RF: 1 hydrocodone-acetaminophen 5-325 mg tablet 1 tab PO Q6H PRN (Reason: pain) Qty: 30 RF: 0 cyclobenzaprine 10 mg tablet 10 mg PO TID PRN (Reason: muscle spasm) Qty: 30 RF: 0 acetaminophen [Tylenol Extra Strength] 500 mg Tablet 500 - 1,000 mg PO Q6H PRN (Reason: Pain) RF: 0 multivitamin Tablet 1 tab PO QAM RF: 0 magnesium oxide 400 mg magnesium Tablet 400 mg PO DAILY RF: 0 Discharge Orders: Discharge Order (Routine); Ordered 06/24/19 Ordered By: Nate Luna/Other Patient Handouts: DVT Post Op Prevention, Back Safety Bending Admission Data Admit Date/Time: 06/18/19 21:00 Attending Provider: Chela Reyes Admit Provider: Elder Prado Primary Care Provider: Tyesha Jones Other Providers: Roly Brennan ; Shreyas Lemos ; Forest Harper ; Nate Lassiter Other Interventions: Discharge Summary Assessment (RN) Last Done: 06/24/19 10:32 DC Date/Time DO NOT enter until pt leaves facility: 06/24/19 11:22 Supervising Physician Co-Signing Physician Notes PA Supervision Note: I personally saw and examined the patient. I verified all jean points and agree with MALU Call with the following exceptions and/or additions: Doing very well, passing stool, flatus, no abd pain. Had lumbar surgery and also doing well from that standpoint. Requiring some pains meds but is ambulating. No chest pain or SOB VSS NAD, AAOx3 Anicteric sclerae, MMM RRR no mgr CTAB no wcr Abd +BS soft NT ND Ext no calf tenderness or leg edema Back-dressing in place Stable for dc to home, continue bowel regimen, ambulation, pain control and Ortho f/u for back Coding Level of Care Code D/C Day Management >30 mins Diagnoses Small bowel obstruction K56.609 Lumbar disc herniation with radiculopathy M51.16 Anemia D64.9 SMA stenosis I77.1 DVT prophylaxis Z29.9
== END 2019-06-24 11:22 | disposition home or self-care (01) | DRG 982 ==
LOC: ED 17:02 → SUATTDRO 21:00 → 3W 21:00